=== PATIENT | female | born 1970 | race Caucasian/White ===

== ENCOUNTER 2019-02-07 02:24 | Outpatient (CLI) | payer MEDICAID, SELFPAY ==
--- NOTE | 2019-02-07 10:51 | DI.MRI_ITS ---
SYMPTOM/DIAGNOSIS: CONTINUED LT KNEE PAIN, FOLLOWING WORK INJURY LT KNEE INTERNAL DERANGEMENT MRI LEFT KNEE: Routine noncontrast examination was performed. There is no evidence of a meniscal tear The anterior cruciate, posterior cruciate, medial and lateral collateral ligaments are all intact as are the extensor mechanism, medial and lateral retinaculum and popliteus tendon. There is mild marrow edema seen in the medial aspect of the medial tibial plateau. No evidence of an occult fracture or avascular necrosis is seen. There is a small amount of fluid in the joint space. There is a tiny popliteal cyst. No soft tissue mass is appreciated. The articular cartilage is intact. IMPRESSION: 1. No evidence of a meniscal or ligament tear. 2. Small apparent bone bruise in the medial tibial plateau.
== END 2019-02-07 02:44 ==
PROVIDERS: PCP Family Medicine; Visit Provider Student in an Organized Health Care Education/Training Program
DX: M25.562 Pain in left knee (principal); M23.92 Unspecified internal derangement of left knee; S80.02XA Contusion of left knee, initial encounter
CPT/HCPCS: 73721

== ENCOUNTER 2019-05-30 10:19 | Outpatient (REF) | payer MEDICAID, SELFPAY ==
--- NOTE | 2019-05-30 08:30 | PAPFT_PTH ---
PATIENT: Christian Gordon LOC: [facility] U#:[id number] AGE/SX: 48/F ROOM: RE05/30/[address]: Reed Clark MD : 1970 BED: DIS: 05/30/2019 SPEC #: [id number] RECD: 05/30/19 13:01 STATUS: TIMOTHY RECherri #: [id number] DARIUS: 05/30/19 08:[address]: Reed Clark DEPT: [facility] Cytology RECD BY: Negar Fitch ENTERED: 05/30/19 13:01 SP TYPE: PAPFT OTHR DR: Nico Conley MD Tissues: 1 - CX/ENDOCX FOR PAP SMEARS Procedures: PAP THIN PREP/UVM Screening HPV DNA PROBE Comments: [id number]
== END 2019-05-30 10:39 ==
LOC: LBN 10:19
PROVIDERS: PCP Family Medicine; Visit Provider Obstetrics & Gynecology
DX: Z12.4 Encounter for screening for malignant neoplasm of cervix (principal)
CPT/HCPCS: 88142; 87624

== ENCOUNTER 2019-07-04 01:55 | Outpatient (CLI) | payer MEDICAID, SELFPAY ==
[2019-07-04 13:27] LABS: Hemoglobin A1C 5.2 % (3.8-5.6)
--- NOTE | 2019-07-04 13:34 | DI.MAMMO_ITS ---
EXAM: MG MAMMO DIAGNOSTIC RT AND US BREAST RT LIMITED AND US BREAST LT LIMITED CLINICAL HISTORY: RT BREAST LUMP AT NIPPLE, N63.10, LT BREAST LUMP AT 12 O'CLOCK, N63.20 TECHNIQUE: Ultrasound performed using standard protocol. FINDINGS: Mammogram and bilateral breast ultrasound are interpreted in conjunction. This is a baseline mammogr am and the patient has a question of palpable abnormalities in the retroareolar portion of the right breast and in the 12 o'clock position of the left breast. The breasts are heterogeneously dense. No dominant mass or clumped microcalcification seen. Vague nodular radiodensities noted in the 12 o'cl ock region of the left breast and retroareolar portion of the right breast without discrete mammograp hic mass. Breast ultrasound shows small cysts corresponding to these areas bilaterally, measuring ab out 5 millimeters in diameter in the left breast and about 7 millimeters in greatest diameter in the right breast. Echogenic dense breast tissue is also present in these regions. No ultrasonographicall y suspicious mass. IMPRESSION: No specific evidence of malignancy at this time. Routine screening examinations suggested at yearly i ntervals in this age group according the ACS/ACR guidelines. Category 1, breast density category C.
[2019-07-04 13:55] LABS: Cholesterol 209 mg/dL (<200); HDL Cholesterol 31 mg/dL (40-60); Triglyceride 602 mg/dL (<150)
[2019-07-04 14:25] LABS: LDL CHOLESTEROL 96 mg/dL (<100)
== END 2019-07-04 02:15 ==
PROVIDERS: PCP Family Medicine; Visit Provider Obstetrics & Gynecology
DX: N63.10 Unspecified lump in the right breast, unspecified quadrant (principal); N63.20 Unspecified lump in the left breast, unspecified quadrant; N60.11 Diffuse cystic mastopathy of right breast; N60.12 Diffuse cystic mastopathy of left breast; Z13.1 Encounter for screening for diabetes mellitus; Z13.220 Encounter for screening for lipoid disorders
CPT/HCPCS: 36415; 76642; 77062; 77066; 80061; 83721; 83036; G0279

== ENCOUNTER 2020-06-09 00:35 | Outpatient (CLI) | payer MEDICAID, SELFPAY ==
--- NOTE | 2020-06-09 06:45 | DI.US_ITS ---
EXAM: US PELVIS TRANSVAGINAL CLINICAL HISTORY: abnl uterine bleeding, menorrhagia, pelvic pain,r10.2,n93.9. TECHNIQUE: Transabdominal and transvaginal pelvic ultrasound was performed using standard protocol. COMPARISON: No exams were available for comparison FINDINGS: KIDNEYS: Kidneys are symmetric in size. No evidence of renal calculi. No evidence of hydronephrosis. No renal mass or cyst identified. UTERUS: Position: Anteverted. Size: 8.5 centimetres in length by 5.7 centimeter AP x 9 centimetres wide. Cm Endometrium: 4 millimeter cm. A trace amount of fluid noted in the endometrial canal. Myometrium: Multiple uterine fibroids. Largest of these is vnwdbm-rjfrg-mfcyb measures 4.6 x 4.9 x 4 .6 centimetres. OVARIES: The right ovary measures 1.4 x 0.7 x 0.8 centimetres. The left ovary measures 2.1 x 1.6 x 1.7 centim eters. No ominous ovarian nor extraovarian adnexal masses. No free fluid in the cul-de-sac. IMPRESSION: 1. Multiple uterine fibroids. The largest of these is right-sided at the fundus level measuring 46 x 49 x 46 millimeter. 2. Nonthickened endometrial stripe although there appears to be a sliver of fluid in the endometrial canal. 3. Appearance of the ovaries is age-appropriate. No abnormal adnexal masses evident. 4. Visualized kidneys appear unremarkable DATA REPOSITORY:
== END 2020-06-09 00:55 ==
PROVIDERS: PCP Family Medicine; Visit Provider Nurse Practitioner Women's Health
DX: D25.9 Leiomyoma of uterus, unspecified (principal)
CPT/HCPCS: 76830; 76856

== ENCOUNTER 2020-06-09 12:09 | Outpatient (REF) | payer MEDICAID, SELFPAY ==
--- NOTE | 2020-06-09 09:20 | ENDOMET_PTH ---
PATIENT: Christian Gordon LOC: [facility] U#:[id number] AGE/SX: 49/F ROOM: RE06/09/[address]: Nhung Whittington NP : 1970 BED: DIS: 06/09/2020 SPEC #: [id number] RECD: 06/09/20 12:36 STATUS: TIMOTHY REQ #: [id number] DARIUS: 06/09/20 09:[address]: Nhung Whittington NP DEPT: Surgical Specimen RECD BY: Negar Fitch ENTERED: 06/09/20 12:37 SP TYPE: Endomet OTHR DR: Bossman Bundy MD Tissues: 1 - ENDOMETRIUM BX/CURRETTE Procedures: GROSS AND MICRO LEVEL 4 Comments: [id number]
== END 2020-06-09 12:29 ==
LOC: LBN 12:09
PROVIDERS: PCP Family Medicine; Visit Provider Nurse Practitioner Women's Health
DX: N93.8 Other specified abnormal uterine and vaginal bleeding (principal); N85.01 Benign endometrial hyperplasia
CPT/HCPCS: 88305

== ENCOUNTER 2020-06-18 04:51 | Outpatient (CLI) | payer MEDICAID, SELFPAY ==
[2020-06-18 13:29] LABS: Abs Immature Grans 0.02 10^3/uL (0.0-0.06); Absolute Basophil Count 0.06 10^3/uL (0.0-0.2); Absolute Eosinophil Count 0.26 10^3/uL (0.0-0.7); Absolute Lymphocyte Count 2.84 10^3/uL (1.2-3.4); Absolute Monocyte Count 0.45 10^3/uL (0.1-0.8); Absolute Neutrophil Count 3.95 10^3/uL (1.2-6.7); Basophils % 0.8; Eosinophils % 3.4; HCT 41.9 % (36.0-46.0); HGB 13.8 g/dL (11.2-15.7); Immature Grans % 0.3; Lymphocytes % 37.5; MCH 30.1 pg (27.0-33.0); MCHC 32.9 % (32.0-36.0); MCV 91.3 fL (80-95); MPV 9.1 fL (8.0-11.0); Monocytes % 5.9; Neutrophils % 52.1; Nucleated RBC 0 %; Platelet Count 262 10^3/uL (130-400); RBC 4.59 10^6/uL (3.93-5.22); RDW 12.7 % (11.7-14.6); RDW-SD 42.8 fL; WBC 7.58 10^3/uL (4.4-10.8)
[2020-06-18 14:04] LABS: HCG Qual (Serum) Negative
[2020-06-20 19:06] LABS: COVID-19 RT-PCR Result NEGATIVE (Negative)
== END 2020-06-18 05:11 ==
PROVIDERS: PCP Family Medicine; Visit Provider Obstetrics & Gynecology
DX: D25.9 Leiomyoma of uterus, unspecified (principal); Z11.59 Encounter for screening for other viral diseases; Z01.818 Encounter for other preprocedural examination; Z01.812 Encounter for preprocedural laboratory examination
CPT/HCPCS: 36415; 86850; 86900; 86901; U0003; 84703; 85025

== ENCOUNTER 2020-06-23 11:25 | Inpatient (IN) | payer MEDICAID, SELFPAY ==
[2020-06-23] VITALS (17 sets, daily range): BP systolic 107–165; BP diastolic 72–92; PULSE 70–88; RESP 12–23; TEMP 36.4–37; O2SAT 96–100
[2020-06-23] MEDS: Lactated Ringers 1,000 ML 125 ML IV ×3 (12:20→21:00)
[2020-06-23] MEDS: ceFAZolin 2 GM/50 ML BAG IVPB (16:15)
[2020-06-23] MEDS: Bupivacaine 0.5% Pres-Free 30 ML VIAL (17:03)
--- NOTE | 2020-06-23 18:21 | UTER_PTH ---
PATIENT: Christian Gordon LOC: U#:[id number] AGE/SX: 49/F ROOM: RE06/23/[address]: Minerva Eisenberg DO : 1970 BED: A DIS: 06/24/2020 SPEC #: [id number] RECD: 06/24/20 12:47 STATUS: SOUHugo REQ #: [id number] DARIUS: 06/23/20 18:[address]: Minerva Eisenberg DEPT: Surgical Specimen RECD BY: Negar Fitch ENTERED: 06/24/20 12:48 SP TYPE: UTER OTHR DR: Bossman Bundy MD Tissues: 1 - UTERUS W OR W/O OVARIES(NOT TUMOR/PROLAPSE) Procedures: GROSS AND MICRO LEVEL 5 Comments: [id number]
--- NOTE | 2020-06-23 19:14 | ROE_ITS ---
Date of service: 06/23/20 Time of Service: 19:15 Operative Note Operative Note DATE OF PROCEDURE: 06/23/20 PRE-OP DIAGNOSIS: Symptomatic uterine fibroids POST-OP DIAGNOSIS: same PROCEDURE: Laparoscopically assisted vaginal hysterectomy with bilateral salpingectomy and bladder cystoscopy SURGEON: Minerva Eisenberg ASSISTING SURGEON: Suha Madrigal ANESTHESIA: GETA ESTIMATED BLOOD LOSS: 150 PATHOLOGY: other (Uterus, cervix, bilateral fallopian tubes) COMPLICATIONS: None Patient was transported to: PACU Patient's condition: stable Indications: Symptomatic uterine fibroids and dysmenorrhea Findings: 14-week size globular uterus with multiple intramural uterine fibroids. Normal-appearing ovaries. Evidence of previous tubal ligation. Normal anatomy of the bladder, and ureters. Procedure Description: Patient is a 49-year-old female who is been under the care of her nurse practitioner. She has been having ongoing heavy menstrual bleeding along with painful periods which has been nonresponsive to medical therapy. In the past she has had an intrauterine device which did not control her bleeding she was placed empirically on Provera for control of bleeding. She has had preoperative evaluation with ultrasound confirming multiple uterine fibroids. She had endometrial biopsy and Pap smear which were both normal. Patient herself requested definitive therapy due to the significant severe pain. Risk benefits and alternatives the procedure were explained the patient including risk of anesthesia, injury to surrounding organs, infection, bleeding, need for open laparotomy, thromboembolic events. Patient also was offered alternatives to procedure which included a repeat of an IUD, pain medication, cyclic or continuous oral contraceptives all of which she declined. Stick the operating suite with an IV running where she is placed in dorsal supine position and endotracheal intubation performed for the administration of general anesthesia anesthesia with ease. She is then placed in the modified dorsolithotomy position in [facility] and prepped and draped in the usual sterile fashion. Exam under anesthesia revealed a bulky globular uterus that was approximately 12 to 14 weeks size. This sat low in the pelvis and filled the bulk of the bony structure of the pelvis. It however, was mobile without evidence of adnexal masses. At this point weighted speculum was placed in the posterior vaginal vault and a single-tooth tenaculum used to grasp the anterior lip of the cervix. A i[employer] uterine manipulator was placed within for uterine elevation. Weighted speculum was removed and Natarajan catheter also inserted. Attention was then turned to the abdomen where infraumbilical area was infiltrated with half percent Marcaine Marcaine and a 1 cm incision was made. Initial attempt at placement of a varies needle was unsuccessful. The fascia was then identified tented up and entered sharply. A bladeless 1012 sleeve and trocar were directly inserted into the abdomen and CO2 gas used to insufflate to a maximum pressure of 15 mmHg. The abdomen was inspected. There is noted to be a significant amount of bowel gas within small bowel and large bowel, and the remainder of the abdomen and pelvis were atraumatic. A second an d third right and left lower quadrant trocar site were placed under direct visualization after instillation of half percent Marcaine with. This allowed for instrumentation and uterine elevation. Attention was first turned to the remnant of the left fallopian tube. Tube and ovary were initially wrapped low within the pelvis and elevated out. The fallopian tube was cautery transected and ligated. The left round ligament identified cautery transected and ligated allowing access to the left broad ligament. Utero-ovarian ligament was identified cautery transected and ligated and the anterior lip of the broad ligament was identified tented up and the bladder flap was created. Similar procedure was carried out on the right side with elevation of the uterus allowing visualization of the ovary and fallopian tube. Fallopian tube was elevated cautery transected and ligated this allowed access to the right round ligament right round ligament was cautery transected and ligated and the right utero-ovarian ligament were transected and ligated. The remainder of the bladder flap was created with meticulous sharp dissection. At this point all pedicles were inspected and found to be hemostatic. Attention was now turned to the vaginal vault. Pneumoperitoneum had been discontinued a weighted speculum was placed into the posterior vaginal vault and [place] uterine manipulator was removed. Pk clamps were used to grasp the anterior and posterior lips of the cervix and a circumferential incision was made at the cervical vaginal interface. The posterior cul-de-sac was entered sharply and the longbilled weighted speculum placed within. The right and left uterosacral cardinal complex were grasped transected and suture ligated. Attention was then turned to the anterior cul-de-sac which was meticulously sharp dissected and the remainder of the cul-de-sac entered. Retractor placed within and with in a very simple systematic meticulous fashion both the right and left uterine pedicles were clamped transected and ligated once they were freed the uterus was delivered through the vaginal vault. There is an area at the right uterine pedicle that was nonhemostatic static it was suture-ligated with 2 simple interrupted sutures and found to be hemostatic. The anterior peritoneum was then identified as was the posterior peritoneum and incorporated into the vaginal cuff. The vaginal cuff was closed using 0 Vicryl suture in a running locked fashion and tied in the midline. The uterosacral cardinal complex area was incorporated into the vaginal apices bilaterally allowing for good pelvic support. With completion of the closure of the vaginal cuff the vaginal portion was discontinued. The patient received 5 mL of methylene blue in preparation for cystoscopy. At this point attention was turned returned again to the abdomen pneumoperitoneum recreated and the vaginal cuff and pedicles found to be hemostatic. At this point the laparoscopic portion of the procedure was terminated fascial incision the umbilicus was closed using 0 Vicryl suture skin edge reapproximated with 4-0 Monocryl and Steri-Strips placed. Cystoscopy was performed with instillation of normal saline a 30 degree scope. The bladder was completely atraumatic and both ureters peristalsing and spouting clear yellow to blue-tinged urine. Completed the procedure. The patient was returned to dorsal supine position and awoke from anesthesia with ease. Natarajan catheter was in place draining blue urine Estimated blood loss 150 mL Complications: None apparent Pathology: Uterus, cervix, bilateral fallopian tubes for examination
[2020-06-23] MEDS: fentaNYL 100 MCG/2 ML VIAL IVP ×2 (19:55→20:05)
[2020-06-23] MEDS: LORazepam 1 MG TAB PO (20:59)
[2020-06-23] MEDS: Docusate Sodium 100 MG CAP PO (20:59)
[2020-06-23] MEDS: Acetaminophen 500 MG TAB PO (20:59)
[2020-06-23] MEDS: Normal Saline Flush 10 ML SYR IV ×2 (21:57→23:14)
[2020-06-23] MEDS: Ketorolac 30 MG/ML VIAL 15 MG IVP (23:13)
[2020-06-24 00:30] VITALS: BP 138/72; PULSE 85; RESP 18; TEMP 37.5; O2SAT 97
[2020-06-24 01:30] VITALS: BP 140/74; PULSE 80; RESP 18; TEMP 37.6; O2SAT 98
[2020-06-24 02:30] VITALS: BP 149/81; PULSE 72; RESP 18; TEMP 37.9; O2SAT 99
[2020-06-24] MEDS: oxyCODONE 5 mg/Acetaminophen 325 mg TAB PO ×3 (02:33→12:04)
[2020-06-24] MEDS: Normal Saline Flush 10 ML SYR IV ×2 (02:34→05:07)
[2020-06-24 03:30] VITALS: BP 133/74; PULSE 71; RESP 18; TEMP 37.7; O2SAT 96
[2020-06-24] MEDS: Ketorolac 30 MG/ML VIAL 15 MG IVP (05:06)
[2020-06-24] MEDS: Lactated Ringers 1,000 ML 125 ML IV (05:08)
[2020-06-24 07:12] VITALS: BP 127/79; PULSE 101; RESP 18; TEMP 37.4; O2SAT 97
--- NOTE | 2020-06-24 07:37 | PGE_ITS ---
Date of Service Date of service: 06/24/20 Time of Service: 07:37 Assessment and Plan Assessment and plan (1) Status post laparoscopic assisted vaginal hysterectomy: Status: Acute Assessment and plan: Status post laparoscopically assisted vaginal hysterectomy with bilateral salpingectomy. Doing well. Natarajan catheter is out. She will ambulate, use incentive spirometer, regular diet today. If she is doing well she will be discharged home later this afternoon. Prescriptions for Motrin, Linwood, Colace to the pharmacy Subjective Subjective Patient reports: feels better, pain is less, tolerating a regular diet and flatus Interval history since last seen: Patient seen and examined this morning. She had a very rough night with pain however pain is better controlled this morning. Natarajan catheter is out she has been up and voided. She did not sleep well last night is tired overall though feeling significantly better. Exam Const General: cooperative, healthy appearing, comfortable and no acute distress Nutritional Appearance: average body habitus Orientation: alert and oriented x3 Eyes General: appearance normal, both eyes and all related structures Resp Effort & Inspection: normal respiratory effort Auscultation: no rales, no rhonchi and no wheezes Cardio Rate: regular rate Rhythm: regular rhythm Heart Sounds: S1 normal and S2 normal GI Inspection: normal to inspection and incision Palpation: soft, not firm and no guarding Skin General skin exam: no rashes or lesions noted Neuro General: patient alert, patient awake and patient oriented x3 Cognition: normal cognition Extrem General: normal to inspection, no clubbing, cyanosis or edema and no calf tenderness Psych Appearance: grossly normal Mental Status: mental status grossly normal Speech and Movement: speech and movement normal Mood: congruent mood Affect: normal affect Attitude: cooperative Thought Process: normal Thought Content: normal Insight: insight good Judgment: judgment good Objective Last Vital Signs Temp 99.3 F 06/24/20 07:12 Pulse 101 H 06/24/20 07:12 Resp 18 06/24/20 07:12 BP 127/79 06/24/20 07:12 Pulse Ox 97 06/24/20 07:12
[2020-06-24] MEDS: LORazepam 1 MG TAB PO (07:48)
[2020-06-24] MEDS: Omeprazole 20 MG CAPCR PO (07:48)
[2020-06-24] MEDS: Docusate Sodium 100 MG CAP PO (07:48)
--- NOTE | 2020-06-24 07:50 | DSE_ITS ---
Date of service: 06/24/20 Time of Service: 07:50 DS: Diagnosis Discharge Diagnosis (1) Status post laparoscopic assisted vaginal hysterectomy: Status: Acute Discharge Plan Disposition Patient Disposition: HOME Condition: Good Discharge Details Reason For Visit: [facility] Admit Date/Time: 06/23/20 11:25 Admit Provider: Minerva Eisenberg Attending Provider: Minerva Eisenberg Primary Care Provider: Bossman Bundy [facility] Course Hospital Course: Patient underwent laparoscopically assisted vaginal hysterectomy with bilateral salpingectomy on 06/23/2020 for significantly enlarged fibroid uterus. She had uncomplicated postoperative course and was discharged home postoperative day #1 ambulating, tolerating regular diet and oral pain medication with stable vital signs. To be followed up in the office approximately 2 weeks time. Home Meds and New Rx's Prescriptions: New ibuprofen [IBU] 800 mg tablet 800 mg PO Q8H PRNQty: 30 RF: 0 hydrocodone-acetaminophen [[place]] 5-325 mg tablet 1 tab PO Q6H PRNQty: 14 RF: 0 docusate sodium [Colace] 100 mg capsule 100 mg PO BID Qty: 30 RF: 0 Continued omeprazole 20 mg capsule,delayed release(DR/EC) 20 mg PO DAILY Qty: 90 RF: 4 lorazepam 1 mg tablet 1 mg PO BID RF: 0 Discontinued ibuprofen 600 mg tablet 600 mg PO TID Qty: 21 RF: 0 progesterone micronized [Prometrium] 100 mg capsule 100 mg PO QAM 21 Days Qty: 21 RF: 0 oxycodone-acetaminophen [Percocet] 5-325 mg tablet 1 tab PO Q6H MDD 6 tabs PRN (Reason: pain) Qty: 14 RF: 0 Discharge Instructions Additional Instructions: Pelvic rest for 6 weeks Stand Alone Forms: DSU Post Gynecology Surgery Activity:: Activity as Tolerated Equipment/Supplies:: No Equipment Needed Diet:: As Tolerated Discharge Orders Discharge Orders: Discharge Order (Routine); Ordered 06/24/20 Ordered By: Minerva Eisenberg DS: Summary Status at Discharge Functional status at discharge: independent ambulation Overall status at discharge: patient is progressing back to baseline Mental Status: mental status grossly normal Speech and Movement: speech and movement normal Mood: congruent mood Affect: normal affect Exam Narrative Exam Narrative: See physical exam from progress note dated 06/24/2020 Psych Mental Status: mental status grossly normal Speech and Movement: speech and movement normal Mood: congruent mood Affect: normal affect DS: Data Vitals/I&O Vitals and I&O: Vital Signs Temperature 99.3 F 06/24/20 07:12 Temperature Source Temporal Artery Scan 06/24/20 07:12 Pulse 101 H 06/24/20 07:12 Pulse Rhythm Regular 06/24/20 05:00 Respiratory Rate 18 06/24/20 07:12 Respiratory Effort Non-Labored 06/24/20 05:00 Respiratory Depth Normal 06/24/20 05:00 Respiratory Pattern Normal 06/24/20 05:00 Blood Pressure 127/79 06/24/20 07:12 Pulse Oximetry 97 06/24/20 07:12 Respiratory End-tidal CO2 37 06/23/20 19:19 Oxygen Delivery Method Room Air 06/24/20 07:12 Oxygen Flow Rate 0 06/24/20 07:12 Pain Level 0 06/24/20 07:12 Comment 06/24/20 02:30 Intake & Output 06/23/20 06/23/20 06/24/20 11:59 23:59 11:59 Intake Total 2505.417 / 2505.417 1600 / 1600 Output Total 500 / 500 2950 / 2950 Balance 2005.417 / 2005.417 -1350 / -1350 Weight 152 lb 12.485 oz 150 lb 9.211 oz Intake: IV 1935.417 / 1457.966 7321 / 1000 Oral 570 / 570 600 / 600 Output: Urine 350 / 350 2950 / 2950 Estimated Blood Loss 150 / 150 Other: Urine Color Green Pale Indigo Yellow Green Urine Appearance Clear Clear Urine Odor None Comment Greenish blue urine color. Natarajan patent and draining. 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 Uterine leiomyoma Surgical History H/O cardiac radiofrequency ablation 2014 for svt Ligation of fallopian tube Open Carpal Tunnel release RIGHT Recurrent major depression in partial remission Cardiac for SVT 2010 [facility] Status post laparoscopic assisted vaginal hysterectomy Family History Other Personal history of malignant neoplasm Social History Smoking/Tobacco Use Status: Current every day Tobacco Type: cigarettes Tobacco: How many years used: 20 Smoking risk assessment performed?: Yes Alcohol Intake: never Drug use: Never Substance use type: does not use Do you feel safe at home: Yes Do you feel safe in your relationship?: Yes History History 4 Para 3 Hx # Term Pregnancies Multiple births Hx # Pregnancies Ectopic pregnancies AB induced Hx Number of Living Children AB spontaneous
[2020-06-24 11:26] VITALS: BP 109/70; PULSE 95; RESP 16; TEMP 37.6; O2SAT 97
[2020-06-24] MEDS: Ibuprofen 600 MG TAB PO (12:20)
--- NOTE | 2020-06-24 14:18 | PDOC.CMPRO ---
- If Service Date Differs Date of service: 06/24/20 Time of Service: 14:18 Care Management Progress Note S/O:P Alayna was sitting up in a chair when ELISSA met with her. She informed ELISSA she was feeling well and that she would be discharging soon. She denied the need for any services at home. A: Alayna is a 49 year old woman admitted on 06/22/20 for a LAVH P: Alayna will be discharged home with no new services. She will follow up with her surgeon and discharge plan of care and transport with family.
== END 2020-06-24 12:59 | disposition home or self-care (01) | DRG 743 ==
LOC: PDS 11:26 → MS 20:04
PROVIDERS: Admitting Provider Obstetrics & Gynecology; PCP Family Medicine; Visit Provider Obstetrics & Gynecology
PROC: 0UT9FZZ Resection of Uterus, Via Natural or Artificial Opening With Percutaneous Endoscopic Assistance (ICD-10-PCS; CPT 58552; principal; 2020-06-23 13:30)
DX: D25.1 Intramural leiomyoma of uterus (principal); D25.2 Subserosal leiomyoma of uterus; N94.6 Dysmenorrhea, unspecified; F17.210 Nicotine dependence, cigarettes, uncomplicated; K21.9 Gastro-esophageal reflux disease without esophagitis; F32.9 Major depressive disorder, single episode, unspecified; F41.9 Anxiety disorder, unspecified
CPT/HCPCS: 58552; 90686; 99232; 99238; 88307; J0131; J0690; J1100; J1200; J1885; J2001; J2405; J3010; J3490

== ENCOUNTER 2020-07-28 14:56 | Outpatient (REF) | payer MEDICAID, SELFPAY ==
[2020-07-28 13:33] LABS: Abs Immature Grans 0.15 10^3/uL (0.0-0.06); Absolute Basophil Count 0.06 10^3/uL (0.0-0.2); Absolute Eosinophil Count 0.18 10^3/uL (0.0-0.7); Absolute Monocyte Count 0.51 10^3/uL (0.1-0.8); Absolute Neutrophil Count 7.87 10^3/uL (1.2-6.7); Basophils % 0.5; Eosinophils % 1.6; HCT 42.5 % (36.0-46.0); HGB 14.2 g/dL (11.2-15.7); Immature Grans % 1.4; Lymphocytes % 20.8; MCH 29.6 pg (27.0-33.0); MCHC 33.4 % (32.0-36.0); MCV 88.7 fL (80-95); MPV 9.7 fL (8.0-11.0); Monocytes % 4.6; Neutrophils % 71.1; Nucleated RBC 0 %; Platelet Count 304 10^3/uL (130-400); RBC 4.79 10^6/uL (3.93-5.22); RDW 12.1 % (11.7-14.6); RDW-SD 39.8 fL; WBC 11.07 10^3/uL (4.4-10.8)
[2020-07-28 13:53] LABS: ALT 24 U/L (14-59); AST 21 U/L (15-37); Alkaline Phosphatase 71 U/L (46-116); Anion Gap 7.7 mmol/L (3-11); BUN 9 mg/dL (7-18); Bilirubin, Total 0.5 mg/dL (0.2-1.0); CO2 26.3 mmol/L (21.0-32.0); CREATININE 0.63 mg/dL (0.55-1.02); Calcium 8.6 mg/dL (8.5-10.1); Chloride 102 mmol/L (98-107); Glucose 107 mg/dL (74-106); Potassium 4.4 mmol/L (3.5-5.1); Sodium 136 mmol/L (136-145); Total Protein 6.9 g/dL (6.4-8.2)
== END 2020-07-28 15:16 ==
LOC: NCHCN 14:56
PROVIDERS: PCP Family Medicine; Visit Provider Physician Assistant
DX: R10.9 Unspecified abdominal pain (principal)
CPT/HCPCS: 80053; 85025

== ENCOUNTER 2020-07-29 16:59 | Outpatient (REF) | payer MEDICAID, SELFPAY ==
[2020-07-30 16:22] LABS: COVID-19 RT-PCR UVMMC Result Negative (Negative)
== END 2020-07-29 17:19 ==
LOC: LBN 16:59
PROVIDERS: PCP Family Medicine; Visit Provider Surgery
DX: Z11.52 Encounter for screening for COVID-19 (principal); Z01.818 Encounter for other preprocedural examination
CPT/HCPCS: U0003

== ENCOUNTER 2020-07-29 18:34 | Outpatient (CLI) | payer MEDICAID, SELFPAY ==
--- NOTE | 2020-07-29 08:00 | DI.CT_ITS ---
EXAM: CT ABDOMEN PELVIS W CLINICAL HISTORY: abd/back pain x 1 week, rectal pain. S/p hysterec TECHNIQUE: Imaging Protocol: Axial computed tomography images with coronal and sagittal reformatted images were created and reviewed CONTRAST MATERIAL: Intravenous: Omnipaque 350 Contrast volume:100 mL Oral: Yes Rectal: Yes COMPARISON: CT RENAL COLIC WO CONTRAST from 07/28/2015 FINDINGS: ABDOMEN: Lung Bases: Scarring or atelectasis in the right lower lobe. Liver: Normal density. No measurable mass. Portal, Superior Mesenteric, and Splenic Veins: Unremarkable. Gallbladder and Biliary Tract: No radiodense calculus or dilation. Pancreas: Normal density, no abnormal calcifications or inflammatory process. Spleen: Normal. Adrenals: No masses seen. Kidneys: Normal size, contour and axis. No radiodense stones or obstructive uropathy. No masses seen. Abdominal Aorta: Abdominal portion non-dilated. Atherosclerosis. Bowel: No obstruction or bowel wall thickening. No evidence of appendicitis. Peritoneal Cavity: No ascites, collection or mesenteric inflammatory response. No free air. Lymph Nodes: Within normal limits. Bones: Within normal limits for the patient's age. Soft Tissues: Small fat containing umbilical hernia. No evidence of a pelvic or soft tissue abscess. PELVIS: Bladder: Symmetric distention, no gross wall thickening. Reproductive Organs: Status post hysterectomy. Lymph Nodes: Within normal limits. Bones: Within normal limits for the patient's age. IMPRESSION: 1. Status post hysterectomy. 2. No evidence of a pelvic or soft tissue abscess or mass. 3. No acute abdominal or pelvic process. RADIATION DOSE DELIVERED: 780.22mGy.cm Total DLP DATA REPOSITORY: All CT scans at this facility are submitted to the National Radiology Data Registry (NRDR) Dose Index Registry (DIR) with the [employer] (ACR). RADIATION OPTIMIZATION: All CT scans at this facility use at least one of these dose optimization te chniques: automated exposure control; mA and/or kV adjustment per patient size (includes targeted exa ms where dose is matched to clinical indication); or iterative reconstruction.
[2020-07-29] MEDS: Omnipaque 350 MG/ML 100 ML BTL IJ (12:48)
[2020-07-29] MEDS: Normal Saline - Diluent 50 ML VIAL IV (12:49)
[2020-07-29] MEDS: Omnipaque 350 MG/ML 50 ML BTL IJ ×2 (12:50→12:54)
[2020-07-29] MEDS: Breeza Beverage 473 ML BTL PO (12:51)
== END 2020-07-29 18:54 ==
PROVIDERS: PCP Family Medicine; Visit Provider Physician Assistant
DX: R10.9 Unspecified abdominal pain (principal); K62.89 Other specified diseases of anus and rectum; Z90.710 Acquired absence of both cervix and uterus; M54.9 Dorsalgia, unspecified
CPT/HCPCS: 74177; J3490; Q9967

== ENCOUNTER 2020-07-30 06:13 | Day surgery (SDC) | payer MEDICAID, SELFPAY ==
[2020-07-30 06:35] VITALS: BP 102/72; PULSE 91; RESP 16; TEMP 36.6; O2SAT 96
[2020-07-30] MEDS: Lactated Ringers 1,000 ML 80 ML IV (07:00)
--- NOTE | 2020-07-30 07:27 | W.PM.HP.N ---
Date of service: 07/30/20 Time of Service: 07:28 Assessment and Plan Assessment and plan (1) Rectal pain: Status: Acute Assessment and plan: I have advised the patient I would recommend an exam under anesthesia and probable drainage of a perianal abscess History of Present Illness History of Present Illness Chief Complaint: Perianal pain Narrative: 49-year-old woman with a 10-day history of perianal pain increasing in nature. Initially started with what she stated was a lump hanging out which she pushed back in. She initially had some blood but none recently. 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 Uterine leiomyoma Surgical History H/O cardiac radiofrequency ablation 2014 for svt History of tonsillectomy Ligation of fallopian tube Open Carpal Tunnel release RIGHT Recurrent major depression in partial remission Cardiac for SVT 2010 [facility] Status post laparoscopic assisted vaginal hysterectomy Family History Other Personal history of malignant neoplasm Social History Smoking/Tobacco Use Status: Current every day Tobacco Type: cigarettes Tobacco: How many years used: 20 Smoking risk assessment performed?: Yes Alcohol Intake: current Alcohol Intake frequency: holidays/special occasions only Drug use: Never Substance use type: does not use Do you feel safe at home: Yes Do you feel safe in your relationship?: Yes History History 4 Para 3 Hx # Term Pregnancies Multiple births Hx # Pregnancies Ectopic pregnancies AB induced Hx Number of Living Children AB spontaneous Meds Home Medications and Allergies Home Medications Medication Instructions Recorded Confirmed Type omeprazole 20 mg capsule,delayed 20 mg PO DAILY #90 tab-cap 06/21/20 07/30/20 Rx release lorazepam 1 mg PO BID 06/23/20 07/30/20 History docusate sodium [Colace] 100 mg PO BID #30 cap 06/24/20 07/30/20 Rx ibuprofen [IBU] 800 mg PO Q8H PRN #30 tab 06/24/20 07/29/20 Rx hydrocortisone 2.5 % topical cream 1 applic GA BID-QID PRN #30 g 07/29/20 07/29/20 Rx with perineal applicator Allergies Allergy/AdvReac Type Severity Reaction Status Date / Time codeine AdvReac Mild pt .states Verified 07/29/20 15:19 she is ok with this medication as long as she eat Exam Resp Auscultation: clear to auscultation bilaterally Cardio Rate: regular rate Rhythm: regular rhythm Heart Sounds: S1 normal and S2 normal GI Other: Tender on digital exam mainly anteriorly with a small tender mass just inside the anal verge anteriorly Results Last Vital Signs Temp 97.9 F 07/30/20 06:35 Pulse 91 H 07/30/20 06:35 Resp 16 07/30/20 06:35 BP 102/72 07/30/20 06:35 Pulse Ox 96 07/30/20 06:35 COVID-19 Screening Have you, or household traveled for leisure in last 14 days?: No Had IN PERSON contact w/suspected or confirmed C-19 person: No
[2020-07-30] MEDS: AMPICILLIN/SULBACTAM 3 GM in Normal Saline 100 ML IVPB (07:50)
[2020-07-30] MEDS: Gelatin SPONGE 12-7 MM PKT 1 EACH TP (08:20)
[2020-07-30] MEDS: EPINEPHrine 1 MG/ML AMP pres-free (08:20)
[2020-07-30] MEDS: Bupivacaine 0.25% Pres-Free 30 ML VIAL (08:20)
--- NOTE | 2020-07-30 08:38 | W.PM.OP ---
Date of service: 07/30/20 Time of Service: 08:39 Operative Note Operative Note DATE OF PROCEDURE: 07/30/20 PRE-OP DIAGNOSIS: Rectal pain POST-OP DIAGNOSIS: same PROCEDURE: Exam under anesthesia SURGEON: Nikolai Jacinto ANESTHESIA: regional ESTIMATED BLOOD LOSS: 1 PATHOLOGY: none sent Findings: Mixed hemorrhoids with no evidence of acute inflammation. No abscess no fissure and normal rectovaginal septum Procedure Description: With the patient in the jackknife position the perianal region was prepped and draped in a sterile fashion. External inspection of the anal skin revealed no abnormalities. A digital rectal exam was performed. The intersphincteric groove was well preserved there were no masses palpable. The rectovaginal septum was entirely normal. No inflammatory change was noted. An anoscope was inserted. There were noted to be mixed hemorrhoids both external and internal. No thrombosis was noted no inflammatory changes noted in the mucosa. The internal hemorrhoids showed normal mucosa over them with no evidence of prior incarceration. The anal canal was visualized no fissure was noted. At this point the anoderm was injected with quarter percent Marcaine with epinephrine. 2 pieces of Gelfoam saturated with quarter percent Marcaine with epinephrine were placed in the anal canal and 4 x 4 were placed over the anus as well as an ABD pad. Patient was brought to recovery room in stable condition
--- NOTE | 2020-07-30 08:47 | W.PM.DSUDISC ---
Discharge Plan Disposition Patient Disposition: HOME Condition: Good Discharge Details Attending Provider: Nikolai Jacinto Primary Care Provider: Bossman Bundy Home Meds and New Rx's Prescriptions: No Action hydrocortisone [Anusol-HC] 2.5 % cream with perineal applicator 1 applic [place] BID-QID PRN (Reason: hemorrhoids) Qty: 30 RF: 0 omeprazole 20 mg capsule,delayed release(DR/EC) 20 mg PO DAILY Qty: 90 RF: 4 lorazepam 1 mg tablet 1 mg PO BID RF: 0 ibuprofen [IBU] 800 mg tablet 800 mg PO Q8H PRNQty: 30 RF: 0 docusate sodium [Colace] 100 mg capsule 100 mg PO BID Qty: 30 RF: 0 Discharge Instructions Additional Instructions: Starting tomorrow morning sit in the tub of warm water. After the bandages are saturated remove the tape and gauze. Soak for about [address] a dry pad over the area. Do the soaks at least 3 times a day and after a bowel movement. Take Metamucil or Citrucel 1 tablespoon in a large glass of water in the evening. Use Tylenol extra strength as needed for discomfort. Referrals: Nikolai Jacinto MD [MD CONSULTING PHYSICIAN] - ( surgery office in a week to 10 days) Activity:: Activity as Tolerated Activity:: Activity as Tolerated Diet:: As Tolerated Discharge Orders Discharge Orders: Discharge Order (Routine); Ordered 07/30/20 Ordered By: Nikolai Jacinto Discharge Data Discharge Physician: Nikolai Jacinto DS: Diagnosis Discharge Diagnosis (1) Rectal pain: Status: Acute
[2020-07-30 09:07] VITALS: BP 103/69; PULSE 73; RESP 16; TEMP 36.5; O2SAT 94
== END 2020-07-30 09:30 | disposition home or self-care (01) ==
PROVIDERS: PCP Family Medicine; Visit Provider Surgery
PROC: (CPT 46040; principal; 2020-07-30 07:30)
DX: K62.89 Other specified diseases of anus and rectum (principal); K64.8 Other hemorrhoids
CPT/HCPCS: 45990; 99234; J0171; J0295; J2250; J2405; J2704

== ENCOUNTER 2020-12-24 06:07 | Day surgery (SDC) | payer MEDICAID, SELFPAY ==
[2020-12-24 06:10] VITALS: BP 116/78; PULSE 80; RESP 18; TEMP 36.6; O2SAT 99
[2020-12-24] MEDS: Lactated Ringers 1,000 ML 80 ML IV (06:36)
--- NOTE | 2020-12-24 07:05 | W.ANESPRE ---
General Info Date of Service Date Performed: 12/24/20 Height: 5 ft 7 in Weight: 67.4 kg Body Mass Index (BMI): 23.3 Surgical Procedure: Operation Date: 12/24/20 07:35 Proposed Procedures Side Surgeon edinson Shah, DO Meds Allergies and Home Medications Allergies Allergy/AdvReac Type Severity Reaction Status Date / Time codeine AdvReac Mild pt .states Verified 12/24/20 06:19 she is ok with this medication as long as she eat Home Medication Medication Instructions Recorded ibuprofen [IBU] 800 mg PO Q8H PRN #30 tab 06/24/20 omeprazole 20 mg capsule,delayed 20 mg PO DAILY #90 tab-cap 09/23/20 release bisacodyl 5 mg tablet,delayed 5 mg PO ONCE #4 tab 12/09/20 release polyethylene glycol 3350 17 238 g PO ONCE #238 g 12/09/20 gram/dose oral powder lorazepam 1 mg tablet 1 mg PO BID #60 tab 12/10/20 Current Visit Medications: Current Medications Generic Name Dose Route Start Last Admin Trade Name Freq PRN Reason Stop Dose Admin Ringer's Solution 1,000 mls @ 80 mls/hr 12/24/20 06:00 12/24/20 06:36 IV 01/22/21 23:59 80 mls/hr INFUSION KRAIG Administration IV Miscellaneous Supplies 1 each 12/24/20 06:00 Iv Access IV 01/22/21 23:59 DIRECTED KRAIG Sodium Chloride 0 ml 12/24/20 06:00 Normal Saline Flush 10 Ml Syr IV 01/22/21 23:59 PRN PRN Sodium Chloride 0 ml 12/24/20 06:00 Normal Saline 10 Ml Vial IJ 01/22/21 23:59 DIRECTED PRN Sterile Water 0 ml 12/24/20 06:00 Water,Injection,Sterile 10 Ml Vial IJ 01/22/21 23:59 DIRECTED PRN PFSH Active Problems Active Problems: Problem Status Onset Code Achilles tendinitis of left lower extremity M76.62 Rectal sphincter spasm K59.4 Toxoplasmosis B58.9 Smoker F17.200 Headache R51 Disorder characterized by back pain M53.9 Depressive disorder F32.9 Carpal tunnel syndrome G56.00 Anxiety F41.9 Breast lump on left side at 12 o'clock position N63.20 Breast lump on right side at 3 o'clock position N63.10 Screening for malignant neoplasm of cervix Z12.4 Intractable right heel pain M79.671 Skin lesion L98.9 URI (upper respiratory infection) J06.9 Acute hemorrhoid K64.9 Status post laparoscopic assisted vaginal hysterectomy Z90.710 Medical History Medical History Acute hemorrhoid Dysmenorrhea ongoing since 2003 Encounter for IUD removal Lymphadenopathy right inguinal Past history anemia Past history hyperlipidemia SVT 2010 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 Uterine leiomyoma Surgical History Surgical History H/O cardiac radiofrequency ablation 2015 for svt History of tonsillectomy Ligation of fallopian tube Open Carpal Tunnel release RIGHT Recurrent major depression in partial remission Cardiac for SVT 2010 [facility] Status post laparoscopic assisted vaginal hysterectomy Tobacco Smoking/Tobacco Use Status: Current every day Tobacco Type: cigarettes Smoking cigarettes per day: 10 Tobacco: How many years used: 20 Alcohol Alcohol Intake: current Alcohol intake frequency: holidays/special occasions only Substance Use Substance use: Never Substance use type: does not use Prental History History 4 Para 3 Hx # Term Pregnancies Multiple births Hx # Pregnancies Ectopic pregnancies AB induced Hx Number of Living Children AB spontaneous Vital Signs and Lab Results Vital Signs Most Recent Vital Signs in EMR: Most Recent Vital Signs Temp Pulse Resp BP Pulse Ox 36.6 C 80 18 116/78 99 12/24/20 06:10 12/24/20 06:10 12/24/20 06:10 12/24/20 06:10 12/24/20 06:10 Lab Results Blood Type / Crossmatch: No Data to Display Complete Blood Count: No Data to Display Complete Metabolic Panel: No Data to Display Liver Function Panel: No Data to Display Coagulation Panel: No Data to Display Cardiac Panel: No Data to Display Arterial Blood Gas: No Data to Display Venous Blood Gas: No Data to Display Pancreas Panel: No Data to Display Thyroid Panel: No Data to Display Infectious Disease: No Data to Display Blood Cultures: No Data to Display Toxicology Panel: No Data to Display Panel: No Data to Display Anesthesia Assessment and Plan Anesthesia History Personal History: No History of Anesthesia Complications Family History: No Family History of Anesthesia Complications Exercise Tolerance Exercise Tolerance: Metabolic Equivalents>4 Pertinent Negatives Pertinent Negatives: No Major Cardiovascular Symptoms or Complaints, No Major Pulmonary Symptoms or Complaints and No History of CVA/TIA Cardiac & Pulmonary Exam Cardiac Exam: Normal S1/S2 Heart Sounds Pulmonary Exam: Clear Bilateral Breath Sounds Airway Exam Known Difficult Airway: No Mallampati Class: 2 Mouth Opening: Normal (> 3cm) Thyromental Distance: Greater than 3 cm Neck Range of Motion: Full ROM Neck Circumference: Normal Teeth Condition: Normal Dentition ASA Classification ASA Score: ASA 2 Emergency Case?: No NPO Status NPO Status: NPO Clears >2 hours, Solids >8 hours Status Status: Not Per Patient and History of Hysterectomy Anesthesia Plan Resuscitation Status: Full Code Anesthesia Technique: General Anesthesia Airway Planned: Natural Airway Monitors Used: Standard Monitors
[2020-12-24 07:09] VITALS: BMI 23.3
--- NOTE | 2020-12-24 08:20 | BOWEL_PTH ---
PATIENT: Christian Gordon LOC: [facility] U#:[id number] AGE/SX: 50/F ROOM: RE12/24/[address]: Thais Shah : 1970 BED: DIS: 12/24/2020 SPEC #: [id number] RECD: 12/24/20 12:48 STATUS: TIMOTHY REQ #: [id number] DARIUS: 12/24/20 08:[address]: Thais Shah DEPT: Surgical Specimen RECD BY: Negar Fitch ENTERED: 12/24/20 12:48 SP TYPE: Bowel OTHR DR: Manuel Lombardo, PROJECTION PRINTER Tissues: 1 - BIOPSY BOWEL Procedures: GROSS AND MICRO LEVEL 4 Comments: [id number]
--- NOTE | 2020-12-24 08:35 | PDOC.DSDIS_ITS ---
Discharge Plan Disposition Patient Disposition: HOME Discharge Details Reason For Visit: colon scope Attending Provider: Thais Shah Primary Care Provider: Manuel Lombardo Home Meds and New Rx's Prescriptions: Continued omeprazole 20 mg capsule,delayed release(DR/EC) 20 mg PO DAILY Qty: 90 RF: 4 lorazepam 1 mg tablet 1 mg PO BID Qty: 60 RF: 0 ibuprofen [IBU] 800 mg tablet 800 mg PO Q8H PRNQty: 30 RF: 0 Discontinued bisacodyl [Dulcolax (bisacodyl)] 5 mg tablet,delayed release (DR/EC) 5 mg PO ONCE Qty: 4 RF: 0 polyethylene glycol 3350 17 gram/dose powder 238 g PO ONCE Qty: 238 RF: 0 Discharge Instructions Additional Instructions: DSU Colonoscopy Post- Op Instructions Instructions for Everyone who is given Anesthesia: For your safety, please do the following for the next twenty-four (24) hours: *Do Not operate a motor vehicle (car, truck, motorcycle, etc.) *Do Not drink alcoholic beverages or use any recreational drugs for the first 24 hours or while taking pain medications. The medications in your body may have a reaction that can be dangerous. *Do Not make any important decisions or sign any important papers. Findings: polyp in rectum Follow up:repeat in 3 yrs time 1. No lifting over 20 pounds or strenuous activity for the first 24 hours after your procedure. After 24 hours there are no restrictions on your activity but you may feel fatigued for a few days. 2. After you arrive home you may have a light meal and return to your normal diet as you can tolerate it without feeling sick to your stomach. 3. You may have a bloated, gaseous feeling in your belly (abdomen) after a colonoscopy. Passing gas and belching will help. Walking or lying down on your left side with your knees flexed may relieve the discomfort. Call the office at [phone] (Office) or [phone] (Hospital) right away if you notice any of the following: a.Vomiting of blood or ?coffee ground stools?. b.Rectal bleeding 1Tbsp, blood clots or continuous bleeding. c.Severe belly (abdominal) pain. d.A hard distended belly (abdomen) and an inability to pass gas. 4. Please don?t expect to have a normal BM (bowel movement) for 2-3 days after your procedure. 5. If there are questions regarding the findings of your procedure, please contact your doctor 6. If you are unable to contact your doctor with a problem, contact the hospital at [phone]. 7. Continue all your regular medications unless directed otherwise. I understand the above instructions and have no questions. Signature of Patient or Adult Escort Name of Responsible Adult Escort Signature of Nurse Date/Time Activity:: see above Diet:: see above Discharge Orders Discharge Orders: Discharge Order (Routine); Ordered 12/24/20 Ordered By: Thais Shah DS: Diagnosis Discharge Diagnosis (1) Adenomatous colon polyp: Status: Acute
--- NOTE | 2020-12-24 08:37 | W.COLOREPORT ---
Date of service: 12/24/20 Time of Service: 08:38 Colonoscopy Report Date of procedure: 12/24/20 Pre-op diagnosis general: screen Post-op diagnosis procedure note: other (1 cm A. polyp in rectum ) Surgeon: Thais Shah Anesthesia Type: General:No Airway Pathology: other Complications: None Disposition: PACU Prep: Miralax/Dulcolax Retraction Time: 12 times Procedure Description: After informed consent was obtained the patient was taken to the procedure room and placed in a left decubitous position. Monitors were applied and a time out was done. The patients name, date of , procedure, allergies to medications and metal in their body was reviewed. The patient was then sedated. Once sedated and comfortable a rectal exam was done. External exam was normal. Internal exam revealed a normal sphincter tone and no palpable masses. The scope was then introduced and retrofelexed. no internal hemorrhoids were identified. The colon is extremely tortuous and redundant. After multiple passes and multiple repositioning, I am unable to get past the hepatic flexure. She has no diverticula. The mucosa is pink and healthy. The prep was good. The scope was then slowly retracted over 15 minutes back into the rectum. Polyps were removed x1 in the rectum. It is a 1 cm polyp. It is removed with a hot snare. All specimen is retrieved and no bleeding is noted. The scope was removed and the patient was woken up and taken back to Same day surgery in stable condition. The patient tolerated the procedure well and there were no immediate complications. Follow up: The patient should follow up in 3 years unless they develop changes in bowel habits or other new gastrointestinal complaints.
[2020-12-24 08:38] VITALS: BP 87/57; PULSE 83; RESP 16; TEMP 36.8; O2SAT 96
--- NOTE | 2020-12-24 08:40 | W.ANESPOSTOP ---
Postoperative Evaluation Date, Time and Location Date Performed: 12/24/20 Time Performed: 08:40 Patient Location: Day Surgery Unit Vital Signs Most Recent Imported Vital Signs: Most Recent Vital Signs Temp Pulse Resp BP Pulse Ox 36.6 C 80 18 116/78 99 12/24/20 06:10 12/24/20 06:10 12/24/20 06:10 12/24/20 06:10 12/24/20 06:10 Most Recent Manually Entered Vital Signs: Adult Blood Pressure: 97/57 Heart Rate: 80 Respirations: 12 Oxygen Saturation (%): 97 Temperature (C): 36.4 C Pain Score (0-10 Scale): 0 Assessment Mental Status: Awake (Alert & Oriented to Patient Baseline) Airway and Respiratory Function: Patent airway with normal (patient baseline) respiratory exam Cardiovascular Function: Hemodynamically Stable Hydration Status: Adequately Hydrated Nausea & Vomiting: No Nausea or Vomiting Pain: Pt. Denies Any Pain Peripheral Nerve Block: Patient did not receive a nerve block
[2020-12-24 08:41] VITALS: BP 97/57; PULSE 80; RESP 12; TEMPC 36.4; O2SAT 97
[2020-12-24 09:08] VITALS: BP 96/61; PULSE 76; RESP 16; TEMP 36.6; O2SAT 96
== END 2020-12-24 09:38 | disposition home or self-care (01) ==
PROVIDERS: PCP Nurse Practitioner Family; Visit Provider Surgery
PROC: 0DJD8ZZ Inspection of Lower Intestinal Tract, Via Natural or Artificial Opening Endoscopic (ICD-10-PCS; CPT 45378; principal; 2020-12-24 07:30)
DX: Z12.11 Encounter for screening for malignant neoplasm of colon (principal); D12.8 Benign neoplasm of rectum
CPT/HCPCS: 45385; 88305; J2001; J2704

== ENCOUNTER 2021-07-28 01:05 | Outpatient (CLI) | payer MEDICAID, SELFPAY ==
--- NOTE | 2021-07-28 08:30 | DI.MAMMO_ITS ---
Exam(s) MAMMO SCREENING EXAM: MAMMO SCREENING CLINICAL HISTORY: screening,z12.39. TECHNIQUE: Bilateral full field digital CC and MLO mammographic images were obtained with 3D tomosyn thesis and utilizing computer aided detection (CAD). COMPARISON: Prior mammograms were reviewed, the most recent being baseline mammogram of June. Ultrasound from that time also. FINDINGS: Fibroglandular tissue is again noted be dense, this somewhat decreasing the sensitivity mammogram for finding hidden underlying lesions There are no new obvious spiculated masses nor malignant appearing microcalcification groups. There is no significant architectural distortion nor skin thickening-retraction. IMPRESSION: Dense bilateral fibroglandular tissue. No obvious radiographic evidence of malignancy nor significan t change compared to 2019 baseline study. BI-RADS Category 1 - Negative Breast Density - Category C - Heterogeneously dense Breast density Category C or D implies that the patient has dense breast tissue. Dense breast tissue can make it harder to find cancer on a mammogram. Dense breast tissue is also associated with an incr eased risk of breast cancer. This information about the result of the mammogram report was provided to the patient to raise their awareness. Use this report when you speak with the patient about their risks for breast cancer, which includes their family history. At that time, you may recommend additional screening tests (Ultrasoun d or MRI) as these tests may add significant information. A negative radiographic report should not delay biopsy if a dominant or clinically suspicious mass is present. Up to ten percent of cancers are not identified on mammography. A negative report may reinforce clinical impression. Adenosis and dense breasts may obscure an underlying neoplasm. False positive reports average 6 to 10%. Patient will receive a letter notifying them of these results.
== END 2021-07-28 01:25 ==
PROVIDERS: PCP Nurse Practitioner Family; Visit Provider Nurse Practitioner Family
DX: Z12.31 Encounter for screening mammogram for malignant neoplasm of breast (principal); R92.8 Other abnormal and inconclusive findings on diagnostic imaging of breast
CPT/HCPCS: 77063; 77067

== ENCOUNTER 2021-08-10 03:10 | Outpatient (CLI) | payer MEDICAID, SELFPAY ==
[2021-08-10 11:40] LABS: Source Nasal/Nares
[2021-08-10 16:26] LABS: COVID-19 PCR Positive (Negative)
== END 2021-08-10 03:11 | disposition home or self-care (01) ==
LOC: LBO 03:10
PROVIDERS: Surgery; PCP Nurse Practitioner Family; Visit Provider Physical Therapy Assistant
DX: Z20.822 Contact with and (suspected) exposure to COVID-19 (principal)
CPT/HCPCS: 87635

== ENCOUNTER 2021-10-17 23:47 | Outpatient (CLI) | payer MEDICAID, SELFPAY ==
--- NOTE | 2021-10-17 16:30 | DI.RAD_ITS ---
Exam(s) XR KNEE RT 4V AP,LAT,MARICARMEN,PAT EXAM: XR KNEE RT 4V AP,LAT,MARICARMEN,PAT CLINICAL HISTORY: knee pain, collided with dog, patella pain, swelling M25.561 PAIN RT KNEE. TECHNIQUE: 2D digital imaging was performed of the right knee. Four views obtained. AP, lateral, Me rchant and PA tunnel views were obtained. COMPARISON: No exams were available for comparison FINDINGS: BONES: No acute fracture is present. No bony destructive lesion is seen. JOINTS: The knee is normally aligned. There is a moderate suprapatellar joint effusion. SOFT TISSUE: Normal. IMPRESSION: 1. Moderate suprapatellar joint effusion. 2. No acute fracture or dislocation. DATA REPOSITORY: RADIATION DOSE DELIVERED:
--- NOTE | 2021-10-17 18:08 | DI.VRAD_ITS ---
PROCEDURE INFORMATION: Exam: XR Left Knee Exam date and time: 10/17/2021 5:43 PM Age: 51 years old Clinical indication: Other: Knee pain, patella pain, collided with dog, swelling TECHNIQUE: Imaging protocol: XR Left knee. Views: 4 or more views. COMPARISON: MR KNEE^ROUTINE KNEE 02/07/2019 11:10 AM FINDINGS: Bones/joints: Moderate suprapatellar effusion. No acute fracture or dislocation. Soft tissues: Soft tissue swelling. IMPRESSION: Moderate nonspecific suprapatellar effusion without acute bony findings. Dictated and Authenticated by: Ray Pfeiffer MD. Ordering:REVA Gordon MD
== END 2021-10-18 00:07 ==
PROVIDERS: PCP Nurse Practitioner Family; Visit Provider Physician Assistant
DX: M25.561 Pain in right knee (principal); M25.461 Effusion, right knee
CPT/HCPCS: 73564

== ENCOUNTER 2021-10-19 02:26 | Outpatient (CLI) | payer MEDICAID, SELFPAY ==
[2021-10-19 12:49] LABS: Source Nasal/Nares
[2021-10-19 16:31] LABS: COVID-19 PCR Negative (Negative)
== END 2021-10-19 02:27 | disposition home or self-care (01) ==
LOC: LBO 02:26
PROVIDERS: PCP Nurse Practitioner Family; Visit Provider Surgery
DX: Z20.822 Contact with and (suspected) exposure to COVID-19 (principal); Z01.818 Encounter for other preprocedural examination
CPT/HCPCS: 87635

== ENCOUNTER 2021-10-21 07:18 | Day surgery (SDC) | payer MEDICAID, SELFPAY ==
--- NOTE | 2021-10-20 22:25 | W.PM.OP ---
Operative Note Operative Note PRE-OP DIAGNOSIS: Uncontrolled GERD Refer to Anesthesia Record
--- NOTE | 2021-10-21 | DI.CT_ITS ---
Exam(s) CT CHEST/ABD W EXAM: CT CHEST/ABD W CLINICAL HISTORY: hiatal hernia TECHNIQUE: Imaging Protocol: Axial computed tomography images with coronal and sagittal reformatted images were created and reviewed CONTRAST MATERIAL: Intravenous: Omnipaque 350 Contrast volume:100 mL Oral: Yes COMPARISON: CT CT ABDOMEN PELVIS W from 07/29/2020 FINDINGS: CHEST: Tracheobronchial tree: Patent where visualized. Pulmonary parenchyma: No consolidation or dominant measurable mass. Linear scarring is seen in the ri ght lower lobe. There are few small noncalcified pulmonary nodules. The largest measures 3 mm. Visualized thyroid gland: Unremarkable. Mediastinum and Sandie: No dominant adenopathy or fluid collection. The esophagus is unremarkable. No hiatal hernia is present. Pleura: No effusion or pneumothorax. Heart: The heart is not dilated. No coronary artery calcifications are seen. No pericardial effusion. Pulmonary arteries: The peripheral pulmonary arteries are not adequately opacified for evaluation of pulmonary embolic disease. No central pulmonary embolus is seen. Aorta: Thoracic aorta non-dilated. Atherosclerosis. Lymph nodes: Within normal limits. Soft tissues: Unremarkable. Bones:Within normal limits for the patient's age. ABDOMEN: Liver: Normal density. No measurable mass. The caudal aspect of the liver was not included on this ex amination. Portal, Superior Mesenteric, and Splenic Veins: Unremarkable. Gallbladder and Biliary Tract: No radiodense calculus or dilation. Pancreas: Normal density, no abnormal calcifications or inflammatory process. Spleen: Normal. Adrenals: No masses seen. Kidneys: Normal size, contour and axis. No radiodense stones or obstructive uropathy. No masses seen. Abdominal Aorta: Abdominal portion non-dilated. Atherosclerosis. Bowel: No obstruction or bowel wall thickening. Peritoneal Cavity: No ascites, collection or mesenteric inflammatory response. No free air. Lymph Nodes: Within normal limits. Bones: Within normal limits for the patient's age. Soft Tissues: Unremarkable. IMPRESSION: 1. No acute abdominal or thoracic process. 2. No evidence of a hiatal hernia. 3. Pulmonary nodules. The largest is 3 mm. For low risk patients, optional CT scan of the chest in 12 months may be obtained. For high risk patients (history of smoking or other risk factors), option al CT scan in 12 months may be obtained for further evaluation. (Ashly et al, 2017). RADIATION DOSE DELIVERED: 725.1mGy.cm Total DLP DATA REPOSITORY: All CT scans at this facility are submitted to the National Radiology Data Registry (NRDR) Dose Index Registry (DIR) with the [employer] (A[employer]). RADIATION OPTIMIZATION: All CT scans at this facility use at least one of these dose optimization te chniques: automated exposure control; mA and/or kV adjustment per patient size (includes targeted exa ms where dose is matched to clinical indication); or iterative reconstruction.
[2021-10-21 07:30] VITALS: BP 113/83; PULSE 90; RESP 18; TEMP 36.8; O2SAT 97
[2021-10-21] MEDS: Lactated Ringers 1,000 ML 80 ML IV (07:51)
--- NOTE | 2021-10-21 08:30 | W.ANESPRE ---
General Info Date of Service Date Performed: 10/21/21 Height: 5 ft 7 in Weight: 69.2 kg Body Mass Index (BMI): 23.8 Surgical Procedure: Operation Date: 10/21/21 08:20 Proposed Procedure Side Surgeon p Gastroscopy Thais Shah, DO Meds Allergies and Home Medications Allergies Allergy/AdvReac Type Severity Reaction Status Date / Time codeine AdvReac Mild pt .states Verified 10/19/21 10:38 she is ok with this medication as long as she eat Home Medication Medication Instructions Recorded multivitamin 1 tab PO DAILY 07/29/21 omeprazole 20 mg capsule,delayed 20 mg PO DAILY #90 tab-cap 08/19/21 release lorazepam 1 mg tablet 1 mg PO BID #56 tab 10/03/21 Current Visit Medications: Current Medications Generic Name Dose Route Start Last Admin Trade Name Freq PRN Reason Stop Dose Admin Hyoscyamine Sulfate 0.125 mg 10/20/21 22:23 Hyoscyamine 0.125 Mg Sl/Oral/Chew SL DIRECTED PRN Ringer's Solution 1,000 mls @ 80 mls/hr 10/21/21 06:00 10/21/21 07:51 IV 11/19/21 23:59 80 mls/hr INFUSION KRAIG Administration IV Miscellaneous Supplies 1 each 10/21/21 06:00 Iv Access IV 11/19/21 23:59 DIRECTED KRAIG Sodium Chloride 0 ml 10/21/21 06:00 Normal Saline Flush 10 Ml Syr IV 11/19/21 23:59 PRN PRN Sodium Chloride 0 ml 10/21/21 06:00 Normal Saline 10 Ml Vial IJ 11/19/21 23:59 DIRECTED PRN Sterile Water 0 ml 10/21/21 06:00 Water,Injection,Sterile 10 Ml Vial IJ 11/19/21 23:59 DIRECTED PRN PFSH Active Problems Active Problems: Problem Status Onset Code Smoker F17.200 Disorder characterized by back pain M53.9 Depressive disorder F32.9 Carpal tunnel syndrome G56.00 Anxiety F41.9 Skin lesion L98.9 Medical History Medical History Adenomatous colon polyp Breast lump on left side at 12 o'clock position Breast lump on right side at 3 o'clock position COVID-19 08/2021 Dysmenorrhea ongoing since 2003 Encounter for IUD removal Lymphadenopathy right inguinal Past history anemia Past history hyperlipidemia Sessile colonic polyp SVT 2010 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 Surgical History Surgical History H/O cardiac radiofrequency ablation 2014 for svt History of colonoscopy with polypectomy (~12/24/20) tubulovillous, repeat 3 years, [place] History of tonsillectomy Ligation of fallopian tube Open Carpal Tunnel release RIGHT Recurrent major depression in partial remission Cardiac for SVT 2009 [facility] Status post laparoscopic assisted vaginal hysterectomy Tobacco Smoking/Tobacco Use Status: Current every day Tobacco Type: cigarettes Passive smoking exposure: Yes Second hand exposure: Yes Alcohol Alcohol Intake: current Alcohol intake frequency: a few times a week Alcohol type: beer Substance Use Substance use: Occasionally Substance use type: marijuana Details: tried it Prental History History 4 Para 3 Hx # Term Pregnancies Multiple births Hx # Pregnancies Ectopic pregnancies AB induced Hx Number of Living Children AB spontaneous Vital Signs and Lab Results Vital Signs Most Recent Vital Signs in EMR: Most Recent Vital Signs Temp Pulse Resp BP Pulse Ox 36.8 C 90 18 113/83 97 10/21/21 07:30 10/21/21 07:30 10/21/21 07:30 10/21/21 07:30 10/21/21 07:30 Lab Results Blood Type / Crossmatch: No Data to Display Complete Blood Count: No Data to Display Complete Metabolic Panel: No Data to Display Liver Function Panel: No Data to Display Coagulation Panel: No Data to Display Cardiac Panel: No Data to Display Arterial Blood Gas: No Data to Display Venous Blood Gas: No Data to Display Pancreas Panel: No Data to Display Thyroid Panel: No Data to Display Infectious Disease: Coronavirus (COVID-19)(PCR) Negative (Negative) 10/19/21 08:23 10/19/21 Coronavirus 2019 Source Nasal/Nares 10/19/21 08:23 10/19/21 Blood Cultures: No Data to Display Toxicology Panel: No Data to Display Panel: No Data to Display Anesthesia Assessment and Plan Anesthesia History Personal History: No History of Anesthesia Complications Family History: Other (Son was combative) Exercise Tolerance Exercise Tolerance: Metabolic Equivalents>4 Pertinent Negatives Pertinent Negatives: No Symptoms of GERD (Omeprazole helps), No Major Cardiovascular Symptoms or Complaints, No Major Pulmonary Symptoms or Complaints and No History of CVA/TIA (Tingling right hand) Cardiac & Pulmonary Exam Cardiac Exam: Normal S1/S2 Heart Sounds Pulmonary Exam: Clear Bilateral Breath Sounds Implantable Cardiac Device Does patient have a Pacemaker or an ICD?: No Airway Exam Known Difficult Airway: No Mallampati Class: 2 Mouth Opening: Normal (> 3cm) Thyromental Distance: Greater than 3 cm Neck Range of Motion: Full ROM Neck Circumference: Normal Teeth Condition: Normal Dentition and Other (Missing teeth left/right upper) ASA Classification ASA Score: ASA 2 Emergency Case?: No NPO Status NPO Status: NPO Clears >2 hours, Solids >8 hours Status Status: Not Per Patient Anesthesia Plan Resuscitation Status: Full Code Anesthesia Technique: General Anesthesia Airway Planned: Natural Airway Monitors Used: Standard Monitors
[2021-10-21 08:35] VITALS: BMI 23.8
--- NOTE | 2021-10-21 08:39 | HPE_ITS ---
Date of service: 10/21/21 Time of Service: 08:40 Assessment and Plan Assessment and plan (1) COVID-19: Assessment and plan: Informed consent is obtained for the procedural (explained in simple layman's terms that the pt and/or family could understand) explaining risks vs benefits and alternatives to the procedure and consequences if we do not do the procedure and need/rational for the procedure.Risks include but are not limited to: bleeding, infection, perforation of esophagus, stomach, colon, small intestines, bronchus or trachea, or PTX. This would necessitate emergency surgery to repair the damage w/ possible ostomy; and other associated complications w/ the required surgery. Also complications of anesthesia including aspiration, AZ/CVA/ (2) Smoker: Status: Chronic (3) Chronic GERD: Status: Acute History of Present Illness Narrative: 50 y/o female with history of GERD, depression and anxiety presents to discuss proceeding with EGD for further evaluation of abdominal bloating and inferior rib pressure.? She states this does not appear to be related to food or beverages. She states these sensations are constant. She denies having any heart burn symptoms since taking omeprazole. She denies any changes in bowel habits including bloody or black tarry stools,? diarrhea or constipation. She denies constitutional symptoms. Denies use of marijuana or any other recreational or illegal drugs. She denies chest pain, palpitations, dyspnea or dyspnea with exertion. 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 She denies prior history or family history of adverse reactions or complications with anesthesia. The patient denies any history of stroke, AZ, seizures, bleeding or clotting disorders. She denies having any implanted metal in her body. SHe c/o epigastric pain. She is on omeprazole. WHen she eats- she bloats. She doesn't get the pain w/ the PPI. She has been on this for 3 yrs. Since she has been on a PPI no H/I. she can't eat lg meals or gets stomach pain. Eats small meals throughout the day. NO pain or diff swallowing. no wt loss. No problems w/ anesthesia coffee- doesn't not. No caffeine smoke- 1PPD etoh- once a week THC- no no asa/nsaid's cause severe pain/problems. no MEJIA no mi/cva no DM kidney- no Review of Systems All systems reviewed & are unremarkable except as noted in HPI and below PFSH All Active Problems (Updated 10/21/21 @ 08:43 by Thais Shah DO) Chronic GERD (Acute) Smoker (Chronic) Disorder characterized by back pain (Chronic) fell from [place] as a child Depressive disorder (Chronic) Carpal tunnel syndrome (Chronic) Anxiety (Chronic) Skin lesion (Acute) Medical History Adenomatous colon polyp Breast lump on left side at 12 o'clock position Breast lump on right side at 3 o'clock position COVID-19 08/2021 Dysmenorrhea ongoing since 2004 Encounter for IUD removal Lymphadenopathy right inguinal Past history anemia Past history hyperlipidemia Sessile colonic polyp SVT 2009 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 Brother , 55 No problems noted. Son No problems noted. Son No problems noted. Son No problems noted. Other Personal history of malignant neoplasm Social History Smoking/Tobacco Use Status: Current every day Tobacco Type: cigarettes Tobacco: How many years used: 20 Quit status: considering quitting Second Hand Exposure: Yes Smoking risk assessment performed?: Yes Alcohol Intake: current Alcohol Intake frequency: a few times a week Alcohol type: beer Drug use: Occasionally Substance use type: marijuana Details: tried it Household members: family Housing: house Communication Needs: None Pets and animals: Yes Pets and animals: cat(s) and dog(s) Sexually active: Yes Do you think of yourself as: straight/heterosexual Current gender identity: female What is your relationship status?: How often do you talk on the phone with friends or family?: three or more times per week How often do you get together with friends or relatives?: three or more times per week How often do you attend holiness or spiritism services?: decline to answer Do you belong to any clubs or organized social groups?: yes Panel score (0-1 are the most socially isolated patients): 3 Duration: 15-30 minutes/day Frequency: 3-4 times per week Seatbelt use: always Helmet use: Yes Helmet use: sometimes Drive 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 w/intox 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: No Do you feel safe at home: Yes Do you feel safe in your relationship?: Yes History History 4 Para 3 Hx # Term Pregnancies Multiple births Hx # Pregnancies Ectopic pregnancies AB induced Hx Number of Living Children AB spontaneous Meds Allergies and Home Medications Allergies Allergy/AdvReac Type Severity Reaction Status Date / Time codeine AdvReac Mild pt .states Verified 10/19/21 10:38 she is ok with this medication as long as she eat Home Medications Medication Instructions Recorded Confirmed Type multivitamin 1 tab PO DAILY 07/29/21 10/21/21 History omeprazole 20 mg capsule,delayed 20 mg PO DAILY #90 tab-cap 08/19/21 10/21/21 Rx release lorazepam 1 mg tablet 1 mg PO BID #56 tab 10/03/21 10/21/21 Rx Exam Narrative Exam Narrative: PHYSICAL EXAM GENERAL APPEARANCE: Alert, healthy appearance, oriented, in no acute distress SKIN: No rashes.? No breakdown HYDRATION: Well hydrated HEAD, EYES, EARS, NECK, THROAT: Head is normocephalic, pupils equal, round, reactive to light and accommodation, ocular movement intact, sclera clear and no jaundice. ?Dentition intact. No sore throat.? No jaw pain. NECK: Supple, Trachea midline. No JVD. LUNGS: normal respiration/nl chest excursion. ?Clear to auscultation B/l no R/R/W ?HEART: Regular rate and rhythm, EXTREMITY: No edema or cyanosis? no leg pain, redness, swelling.? No IV infiltration ABDOMEN: non tender to palpation, no masses or distention, no hernias. Normal bowel sounds NEURO: no focal neuro deficits. ? Results Last Vital Signs Temp 36.8 C 10/21/21 07:30 Pulse 90 10/21/21 07:30 Resp 18 10/21/21 07:30 BP 113/83 10/21/21 07:30 Pulse Ox 97 10/21/21 07:30
--- NOTE | 2021-10-21 08:55 | W.PM.ENDDOP ---
Date of service: 10/21/21 Time of Service: 08:55 Endoscopy Report DATE OF PROCEDURE: 10/21/21 PRE-OP DIAGNOSIS: medication refractory GERD POST-OP DIAGNOSIS: other (hiatal hernia) SURGEON: Thais Shah ANESTHESIA TYPE: Local By Surgeon and General:No Airway ESTIMATED BLOOD LOSS: 1 PATHOLOGY: other COMPLICATIONS: None DISPOSITION: same day PROCEDURE DESCRIPTION: After informed consent was obtained the patient was take to the procedure room and placed in a supine position. Monitors were applied and a time out was done. The patients name, date of , procedure type, allergies to medications and metal in their body was reviewed. A bite block was placed and the patient was sedated. Once sedated and comfortable the gastroscope was advanced through the oropharynx which was grossly normal into the esophagus. The proximal and mid-esophagus were nl. She has no esophageal erosions, varices, diverticula or strictures. she does have a large type sliding hernia approximately 4 to 5 cm. The thoracic stomach junction to the abdominal stomach is at 40 cm and the GE junction was at 45 cm. Biopsies are taken of this. There is some mild irritation within the body of the thoracic stomach. The rest of the stomach is unremarkable without gastritis, ulceration. The duodenum appears normal without ulcers or duodenitis. Biopsies were taken. All specimens are retrieved and no bleeding is noted. Scope was advanced into the stomach and through the pylorus into the 3rd portion of the duodenum. The duodenum was noted to be nl Biopsies were done. The scope was retracted back into the stomach and biopsies were done to rule out H. pylori. The scope was retroflexed. The cardia and fundus were noted to be normal. There lg a hiatal hernia noted- sliding type. The scope was retracted back into the esophagus and biopsies were done of the GE junction to rule out Lua's. The Z line was regular. The scope was removed and the patient was woken up and taken back to [facility] in stable condition. Follow up: 2-3 wks
--- NOTE | 2021-10-21 09:12 | STOM_PTH ---
PATIENT: Christian Gordon LOC: [facility] U#:[id number] AGE/SX: 51/F ROOM: RE10/21/[address]: Thais Shah : 1970 BED: DIS: 10/21/2021 SPEC #: [id number] RECD: 10/21/21 12:39 STATUS: [facility] #: [id number] DARIUS: 10/21/21 09:[address]: Thais Shah DEPT: Surgical Specimen RECD BY: Negar Fitch ENTERED: 10/21/21 12:42 SP TYPE: STOMACH OTHR DR: Manuel Lombardo, MANAGER COLLECTION Tissues: 1 - BIOPSY BOWEL 2 - BIOPSY BOWEL 3 - STOMACH BIOPSY 4 - STOMACH BIOPSY 5 - STOMACH BIOPSY 6 - ESOPHAGUS BIOPSY Procedures: GROSS AND MICRO LEVEL 4 Comments: [id number]
[2021-10-21 09:39] VITALS: BP 105/90; PULSE 91; RESP 16; TEMP 36.7; O2SAT 97
--- NOTE | 2021-10-21 09:39 | W.ANESPOSTOP ---
Postoperative Evaluation Date, Time and Location Date Performed: 10/21/21 Time Performed: 09:39 Patient Location: Day Surgery Unit Vital Signs Most Recent Imported Vital Signs: Most Recent Vital Signs Temp Pulse Resp BP Pulse Ox 36.8 C 90 18 113/83 97 10/21/21 07:30 10/21/21 07:30 10/21/21 07:30 10/21/21 07:30 10/21/21 07:30 Pain Score Most Recent Pain Score: Most Recent Pain Score Pain Level 0 10/21/21 07:30 Assessment Mental Status: Awake (Alert & Oriented to Patient Baseline) Airway and Respiratory Function: Patent airway with normal (patient baseline) respiratory exam Cardiovascular Function: Hemodynamically Stable Hydration Status: Adequately Hydrated Nausea & Vomiting: No Nausea or Vomiting Pain: Pt. Denies Any Pain Peripheral Nerve Block: Patient did not receive a nerve block
[2021-10-21] MEDS: Normal Saline Flush 10 ML SYR IV (09:57)
[2021-10-21 10:09] VITALS: BP 113/87; PULSE 87; RESP 16; TEMP 36.8; O2SAT 97
[2021-10-21] MEDS: Omnipaque 350 MG/ML 100 ML BTL IJ (10:17)
[2021-10-21] MEDS: Omnipaque 350 MG/ML 50 ML BTL PO (10:32)
[2021-10-21] MEDS: Breeza Beverage 473 ML BTL PO (10:33)
--- NOTE | 2021-10-21 10:36 | PDOC.DSDIS_ITS ---
Discharge Plan Disposition Patient Disposition: HOME Condition: Good Discharge Details Reason For Visit: stomach scope Attending Provider: Thais Shah Primary Care Provider: Manuel Lombardo Home Meds and New Rx's Prescriptions: New omeprazole 20 mg capsule,delayed release(DR/EC) 20 mg PO BID Qty: 60 12RF Continued multivitamin Tablet 1 tab PO DAILY 0RF lorazepam 1 mg tablet 1 mg PO BID Qty: 56 0RF Discontinued omeprazole 20 mg capsule,delayed release(DR/EC) 20 mg PO DAILY Qty: 90 4RF Discharge Instructions Additional Instructions: Post EGD Instruction ? ?You had anesthesia for your EGD/stomach scope today.? For your safety, please do the following for the next twenty-four (24) hours: Do Not operate a motor vehicle (car, truck, motorcycle, etc.) Do Not drink alcoholic beverages or use any recreational drugs for the first 24 hours or while taking pain medications. The medications in your body may have a reaction that can be dangerous. Do Not make any important decisions or sign any important papers ? You have just had a gastroscopy (EGD) or upper GI tract examination. It is important for your smooth recovery that you carefully follow the recommendations below. Do not hesitate to call if any questions should arise about your anesthesia, condition, or care. -Symptoms you may experience during the next 24 hours: ?1. Mild abdominal pain or excessive gas or a bloated feeling which improves with rest, liquids, eating? slightly, and walking as tolerated. 2. Drowsiness and/or forgetfulness because of the medications you were given. ?3. Throat numbness for about 1 hour. 4. A sore throat which you can treat with throat lozenges or by gargling with salt water 4-5 times a day. 5. Redness at the site of your IV which you can treat with warm compresses. ? SPECIAL INSTRUCTIONS: 1. You may resume your previous diet in one hour. We recommend a light meal to start, then progress as tolerated. 2. Restart regular medications in one hour. 3. No aspirin or non-steroidal containing medication for three days. 4. No lifting over 20 pounds or strenuous activity for the first 24 hours after your procedure. After 24 hours there are no restrictions on your activity, but you may feel fatigued for a few days. ?Findings: hiatal hernia *Always sit up straight in a chair while eating.3? This ensures that your stomach is in the best alignment to receive food. By contrast, slouching (say,?on the sofa) not only places your stomach in a more horizontal position, it compresses the junction between the stomach and esophagus, promoting backflow.? * Eat smaller, more frequent meals.3??And, more importantly perhaps, do not skip meals. Doing so will only lead you to overeat. * Always eat at a table.?The thing about nibbling on the run or munching in front the TV is that you can end up?mindlessly putting food into your mouth?without even realizing it. Sitting a table with prepared portions helps avoid this. * Take smaller bites and chew longer.3??The rationale is simple: The more your food is pulverized before swallowing, the less the stomach has to do to digest it. This translates to less stomach acid and less acid reflux. * Sit upright for at least an hour after eating.?It is best to do so in a solid but comfortable chair. Also, avoid bending or lying down immediately after eating. * Avoid eating three hours before bedtime.3??This includes snacks. Sleeping with an emptied stomach means there will be far less chance of rzpsce-sd-inv-night reflux. * Relax.?While stress doesn't necessarily cause acid reflux, an increasing? body of evidence z ?has shown that stress can impact the way in which our body reacts to reflux symptoms. So, rather than?tying yourself in a knot, trying sitting calming and engaging in deep breathing exercises or meditation. Find someplace quiet where you can sit comfortably until the symptoms pass. * Loosen your belt and remove tight clothing.?Ultimately, anything that constricts the abdomen can trigger symptoms as you move about and jostle the contents of your stomach. Give yourself a break and avoid cinched waistlines or anything that places direct stress on the stomach. * Take a fiber supplement.?If you are suffering from chronic constipation, a daily?fiber supplement https://www.[place].Peap.co/yzqyzvqqbcdv-robdzlwh-48596 ?can help improve your regularity.5? A couple of tablespoons of mineral oil can also help ease hardened stools during acute bouts. * Elevate the head of your bed 4 to 8 inches. This is especially useful for people who are overweight or have the?symptoms of GERD https://www.[place] [address].Peap.co/qqhoueog-sh-pllo-0114928 . Aligning the stomach in an ascending (rather than flat) position significantly lowers the risk of gastric backflow related to hiatal hernias. * Avoid heavy lifting.?If you have been diagnosed with a large hernia, lifting heavy objects will only make things?worse. If you have to move something heavy, use a cart or trolley, or, better yet, ask someone else to do it. You may also need to alter your workout routine if you use heavy weights or engage in exercises that place excessive stress on the stomach muscles (including weighted squats or crunches). Finally,?stop smoking.6??While smoking doesn't cause acid reflux, it can affect? gastric motility h ?and the way in which food moves through the esophagus. Smoking can also dull the responsiveness your LES and promote?dysphagia 7 ?(swallowing difficult). These effects are long-lasting and may become permanent in heavy smokers, turning even a small hernia into a source of ongoing grief. ? -Continue to follow lifestyle modifications: No alcohol, tobacco products, Aspirin or NSAID's (ibuprofen, Motrin, Naprosyn, aleve, etc).? Try to limit/avoid:? soda pop/any carbonated beverages, caffeine (including tea & chocolate), and acidic foods, (tomatoes, citrus, onions, peppermints) spicy or fried/fatty foods. Do not lie down for 30 minutes after eating, and do not eat 2 hours prior to bedtime. Avoid wearing tight fitting clothing/ belts. Follow up: Dr. Shah 11/03 11:30am Call the office at [phone] (Office) or [phone] (Hospital), or go to the ER right away if you notice any of the followin. Vomiting blood and /or ?coffee ground? material. ?2. Worsening of abdominal pain or cramping. ?3. Trouble with breathing, cough, and/or fever (temperature above 101.5 F). 4. Increasing pain with swallowing. ?5. Chest pain. 6. Any new symptoms. 7. Worsening of the redness at the IV site ? Activity:: see above Diet:: see above Discharge Orders Discharge Orders: Discharge Order (Routine); Ordered 10/20/21 Ordered By: Thais Shah DS: Diagnosis Discharge Diagnosis (1) COVID-19: (2) Smoker: Status: Chronic (3) Chronic GERD: Status: Acute
--- NOTE | 2021-10-21 10:55 | PDOC.DSDIS_ITS ---
Discharge Plan Disposition Patient Disposition: HOME Condition: Good Discharge Details Reason For Visit: stomach scope Attending Provider: Thais Shah Primary Care Provider: Manuel Lombardo Home Meds and New Rx's Prescriptions: New omeprazole 20 mg capsule,delayed release(DR/EC) 20 mg PO BID Qty: 60 12RF Continued multivitamin Tablet 1 tab PO DAILY 0RF lorazepam 1 mg tablet 1 mg PO BID Qty: 56 0RF Discontinued omeprazole 20 mg capsule,delayed release(DR/EC) 20 mg PO DAILY Qty: 90 4RF Discharge Instructions Additional Instructions: Post EGD Instruction ? ?You had anesthesia for your EGD/stomach scope today.? For your safety, please do the following for the next twenty-four (24) hours: Do Not operate a motor vehicle (car, truck, motorcycle, etc.) Do Not drink alcoholic beverages or use any recreational drugs for the first 24 hours or while taking pain medications. The medications in your body may have a reaction that can be dangerous. Do Not make any important decisions or sign any important papers ? You have just had a gastroscopy (EGD) or upper GI tract examination. It is important for your smooth recovery that you carefully follow the recommendations below. Do not hesitate to call if any questions should arise about your anesthesia, condition, or care. -Symptoms you may experience during the next 24 hours: ?1. Mild abdominal pain or excessive gas or a bloated feeling which improves with rest, liquids, eating? slightly, and walking as tolerated. 2. Drowsiness and/or forgetfulness because of the medications you were given. ?3. Throat numbness for about 1 hour. 4. A sore throat which you can treat with throat lozenges or by gargling with salt water 4-5 times a day. 5. Redness at the site of your IV which you can treat with warm compresses. ? SPECIAL INSTRUCTIONS: 1. You may resume your previous diet in one hour. We recommend a light meal to start, then progress as tolerated. 2. Restart regular medications in one hour. 3. No aspirin or non-steroidal containing medication for three days. 4. No lifting over 20 pounds or strenuous activity for the first 24 hours after your procedure. After 24 hours there are no restrictions on your activity, but you may feel fatigued for a few days. ?Findings: hiatal hernia *Always sit up straight in a chair while eating.3? This ensures that your stomach is in the best alignment to receive food. By contrast, slouching (say,?on the sofa) not only places your stomach in a more horizontal position, it compresses the junction between the stomach and esophagus, promoting backflow.? * Eat smaller, more frequent meals.3??And, more importantly perhaps, do not skip meals. Doing so will only lead you to overeat. * Always eat at a table.?The thing about nibbling on the run or munching in front the TV is that you can end up?mindlessly putting food into your mouth?without even realizing it. Sitting a table with prepared portions helps avoid this. * Take smaller bites and chew longer.3??The rationale is simple: The more your food is pulverized before swallowing, the less the stomach has to do to digest it. This translates to less stomach acid and less acid reflux. * Sit upright for at least an hour after eating.?It is best to do so in a solid but comfortable chair. Also, avoid bending or lying down immediately after eating. * Avoid eating three hours before bedtime.3??This includes snacks. Sleeping with an emptied stomach means there will be far less chance of caohdb-dr-bbc-night reflux. * Relax.?While stress doesn't necessarily cause acid reflux, an increasing? body of evidence z ?has shown that stress can impact the way in which our body reacts to reflux symptoms. So, rather than?tying yourself in a knot, trying sitting calming and engaging in deep breathing exercises or meditation. Find someplace quiet where you can sit comfortably until the symptoms pass. * Loosen your belt and remove tight clothing.?Ultimately, anything that constricts the abdomen can trigger symptoms as you move about and jostle the contents of your stomach. Give yourself a break and avoid cinched waistlines or anything that places direct stress on the stomach. * Take a fiber supplement.?If you are suffering from chronic constipation, a daily?fiber supplement https://www.[employer]/kjsvredxwuvj-urugwcvk-30696 ?can help improve your regularity.5? A couple of tablespoons of mineral oil can also help ease hardened stools during acute bouts. * Elevate the head of your bed 4 to 8 inches. This is especially useful for people who are overweight or have the?symptoms of GERD https://www.[employer]/jbxknalk-oe-gtxp-2466750 . Aligning the stomach in an ascending (rather than flat) position significantly lowers the risk of gastric backflow related to hiatal hernias. * Avoid heavy lifting.?If you have been diagnosed with a large hernia, lifting heavy objects will only make things?worse. If you have to move something heavy, use a cart or trolley, or, better yet, ask someone else to do it. You may also need to alter your workout routine if you use heavy weights or engage in exercises that place excessive stress on the stomach muscles (including weighted squats or crunches). Finally,?stop smoking.6??While smoking doesn't cause acid reflux, it can affect? gastric motility h ?and the way in which food moves through the esophagus. Smoking can also dull the responsiveness your LES and promote?dysphagia 7 ?(swallowing difficult). These effects are long-lasting and may become permanent in heavy smokers, turning even a small hernia into a source of ongoing grief. ? -Continue to follow lifestyle modifications: No alcohol, tobacco products, Aspirin or NSAID's (ibuprofen, Motrin, Naprosyn, aleve, etc).? Try to limit/avoid:? soda pop/any carbonated beverages, caffeine (including tea & chocolate), and acidic foods, (tomatoes, citrus, onions, peppermints) spicy or fried/fatty foods. Do not lie down for 30 minutes after eating, and do not eat 2 hours prior to bedtime. Avoid wearing tight fitting clothing/ belts. Follow up: Dr. Shah 11/03 11:30am Call the office at [phone] (Office) or [phone] (Hospital), or go to the ER right away if you notice any of the followin. Vomiting blood and /or ?coffee ground? material. ?2. Worsening of abdominal pain or cramping. ?3. Trouble with breathing, cough, and/or fever (temperature above 101.5 F). 4. Increasing pain with swallowing. ?5. Chest pain. 6. Any new symptoms. 7. Worsening of the redness at the IV site ? Activity:: see above Diet:: see above Discharge Orders Discharge Orders: Discharge Order (Routine); Ordered 10/20/21 Ordered By: Thais Shah Discharge Data Discharge Date/Time-TO BE ENTERED AT DEPARTURE: 10/21/21 11:08 Discharge Comment: Pt belongings sent home w/ Pt. DS: Diagnosis Discharge Diagnosis (1) COVID-19: (2) Smoker: Status: Chronic (3) Chronic GERD: Status: Acute
== END 2021-10-21 11:08 | disposition home or self-care (01) ==
PROVIDERS: PCP Nurse Practitioner Family; Visit Provider Surgery
PROC: 0DJ68ZZ Inspection of Stomach, Via Natural or Artificial Opening Endoscopic (ICD-10-PCS; CPT 43235; principal; 2021-10-21 08:15)
DX: K21.9 Gastro-esophageal reflux disease without esophagitis (principal); K44.9 Diaphragmatic hernia without obstruction or gangrene; F41.9 Anxiety disorder, unspecified; F32.A Depression, unspecified; F17.210 Nicotine dependence, cigarettes, uncomplicated; K31.89 Other diseases of stomach and duodenum; K22.89 Other specified disease of esophagus
CPT/HCPCS: 43239; 88305; 71260; 74160; J2001; J3490; Q9967

== ENCOUNTER 2021-10-26 01:17 | Outpatient (CLI) | payer MEDICAID, SELFPAY ==
--- NOTE | 2021-10-26 09:55 | DI.RAD_ITS ---
Exam(s) RF BARIUM SWALLOW UGI EXAM: RF BARIUM SWALLOW UGI CLINICAL HISTORY: hiatal hernia,CHRONIC GERD,K21.9,K44.9 TECHNIQUE: COMPARISON: CR CHEST 2 VIEWS PA,LAT from 05/23/2011 FINDINGS: Preliminary views of the chest and neck show no specific abnormality. Barium was ingested and showed normal esophageal motility and mucosal appearance. Gastric and duodenal mucosa appear intact as vis ualized, no evidence of ulcer disease. No evidence of obstruction. IMPRESSION: Negative barium swallow and upper GI series Fluoro dose 17.3 mGy RADIATION DOSE DELIVERED: Total DLP
[2021-10-26] MEDS: Barium Sulfate 60% W/V 355 ML BTL 300 ML PO (10:02)
== END 2021-10-26 01:37 ==
PROVIDERS: PCP Nurse Practitioner Family; Visit Provider Surgery
DX: F17.200 Nicotine dependence, unspecified, uncomplicated (principal); K21.9 Gastro-esophageal reflux disease without esophagitis; K44.9 Diaphragmatic hernia without obstruction or gangrene
CPT/HCPCS: 74221; 74246

== ENCOUNTER 2021-11-10 01:46 | Outpatient (CLI) | payer MEDICAID, SELFPAY ==
--- NOTE | 2021-11-10 06:45 | DI.MRI_ITS ---
Exam(s) MR LOWER JOINT RT WO EXAM: MR LOWER JOINT RT WO CLINICAL HISTORY: Trauma to right knee 10 days ago,ain,m25.561 TECHNIQUE: Multiplanar multisequence MRI was performed.. CR,XR XR KNEE RT 4V AP,LAT,MARICARMEN,PAT from 10/17/2021 FINDINGS: MR examination of the knee was performed according to the usual protocol. There is a moderate sized knee joint effusion. There is a small multiloculated fluid collection benson cent to the tibial fibular joint extending adjacent to the popliteus muscle a, this probably originat es from the knee joint posteriorly and is presumably associated with a lateral meniscal tear. There is abnormal signal in the periphery of the medial tibial plateau, presumably representing bony trabecular injury without evidence of his discrete fracture. Medial tibiofemoral joint: The articular cartilage of the femur and tibia appears well maintained. T here is a focal tear of the posterior horn of the medial meniscus which appears nondisplaced. The me dial collateral ligament appears intact. No posteromedial corner injury seen. Lateral tibiofemoral joint: The articular cartilage of the femur and tibia appears mildly thinned per iod. The lateral meniscus is torn, with a nondisplaced tear, complex, of the body and anterior horn. There is a presumed associated meniscal cyst extending adjacent to the popliteus and tibiofibular j oint posteriorly period. The lateral collateral ligament complex and posterolateral corner structure s appear intact. Patellofemoral joint and extensor mechanism: The articular cartilage of the patellofemoral joint show s abnormal signal and some collapse which do not appear to reach the cortex, grade 2 chondromalacia p eriod. The superior and inferior patellar fat pads appear normal with no signal abnormality. The quadriceps tendon and patellar tendon appear intact with no evidence of a tear or significant priyanka ma. The medial and lateral retinacula appear intact. Cruciate ligaments: Cruciate ligaments and attachments appear normal with no evidence of a tear. Tibiofibular joint: No specific abnormality involving the tibiofibular joint. IMPRESSION: Medial and lateral meniscal tear is as described above, these are essentially nondisplaced. Presumed meniscal cyst extending from posterior aspect lateral tibiofemoral joint. Presumed bony trabecular injury of medial tibial plateau. Chondromalacia patellae grade2. Mild articular cartilage thinning of medial and lateral tibiofemoral joints DATA REPOSITORY:
== END 2021-11-10 02:06 ==
PROVIDERS: PCP Nurse Practitioner Family; Visit Provider Nurse Practitioner Family
DX: M25.561 Pain in right knee (principal); S83.281A Other tear of lateral meniscus, current injury, right knee, initial encounter; S83.241A Other tear of medial meniscus, current injury, right knee, initial encounter; M22.41 Chondromalacia patellae, right knee
CPT/HCPCS: 73721

== ENCOUNTER → 2022-05-15 13:32 | Outpatient (CLI) | payer MEDICAID, SELFPAY ==
--- NOTE | 2022-05-15 10:30 | DI.RAD_ITS ---
Exam(s) XR CHEST 2V PA LATERAL EXAM: XR CHEST 2V PA LATERAL CLINICAL HISTORY: Significant thrush oral infection with now..... R07.9 CHEST PAIN TECHNIQUE: 2D digital imaging was performed of the chest. Two images were obtained. PA and lateral views were obtained. COMPARISON: CR,RF RF BARIUM SWALLOW UGI from 10/26/2021 FINDINGS: MEDIASTINUM: Normal. HEART: Normal. PULMONARY VASCULATURE: Normal. LUNGS: Clear. PLEURAL SPACE: No pleural effusion or pneumothorax. BONE:Within normal limits for the patient's age. OTHER FINDINGS:Normal. IMPRESSION: No acute pulmonary findings. DATA REPOSITORY: RADIATION DOSE DELIVERED:
== END ==
PROVIDERS: PCP Nurse Practitioner Family; Visit Provider Nurse Practitioner Family
DX: R07.9 Chest pain, unspecified (principal)
CPT/HCPCS: 71046

== ENCOUNTER 2022-05-26 01:36 | Outpatient (CLI) | payer MEDICAID, SELFPAY ==
--- OUTSIDE RECORDS SUMMARY | 2022-05-26 01:43 | XMS_ITS | Clinical Summary ---
:1970 Author Organization [place] [address] Care Team Providers Name Role Phone Nico Conley MD Primary Care Provider Allergies Active Allergy Reactions Severity Noted Date Comments Codeine Phosphate CIS - faci al swelling Medications Medication Sig Dispensed Refills Start Date End Date Status omeprazole (PriLOSEC) Take 20 mg by 0 12/24/2020 Active 20 mg Capsule, Delayed mouth daily. Release(E.C.) LORazepam (Ativan) 1 mg Take 1 mg by 0 12/10/2020 Active Tablet mouth daily. Social History Tobacco Use Types Packs/Day Years Used Date Smoking Tobacco: Smoker, Current Status Unknown Smokeless Tobacco: Never Snuff Sex Assigned at Date Recorded Not on file Plan of Treatment Health Maintenance Due Date Last Done Comments Hepatitis B vaccine (0-59 yrs) (1 of 3 - 3-dose 1970 series) Covid-19 Vaccine (#1) 02/03/1970 Pneumococcal Vaccine: At-Risk 5-64yrs (1 - PCV) 1975 HIV screen 1987 Lipid Screening 1987 Tdap adult 1988 Tetanus vaccine 1988 HPV test 1999 PAP Smear 1999 Breast Cancer Share Decision Needed 2009 Colonoscopy 2014 Breast Cancer screening 2019 Zoster vaccine (1 of 2) 2019 Influenza (Flu) vaccine (1 of 1 - Influenza standard 03/09/2022 series) Hepatitis C Screening Completed 10/31/2018 Insurance Payer Benefit Plan / Subscriber ID Effective Dates Phone Addre ss Type [place] [id number] 2018-Prese [phone] [address] [facility] [address] [place], [place] [id number] Care Teams Perfect Bind Machine Operator Relationship Specialty Start Date End Date Nico Conley MD PCP - General Family Medicine 10/31/[address] [place], [place] [address]
--- OUTSIDE RECORDS SUMMARY | 2022-05-26 01:43 | XMS_ITS | Clinical Summary ---
:[address] [facility] Address [address] [place] [address] Care Team Providers Name Role Phone Nico Conley MD Primary Care Provider Unavailable Allergies Active Allergy Reactions Severity Noted Date Comments Codeine Nausea And Vomiting Medium 07/13/2011 Morphine Hives Medium 07/13/2011 Oxycodone-Acetaminophen Nausea And Vomiting Medium 07/13/2011 Medications Medication Sig Dispensed Refills Start Date End Date Status ibuprofen (MOTRIN) 400 Take 800 mg by 0 Active mg tablet mouth every 8 hours as needed. 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 Surgical History Surgery Date Site/Laterality Comments INTRAUTERINE DEVICE INSERTION pickett rgically removed CARPAL TUNNEL RELEASE Rt LYMPHADENECTOMY bilateral, ingui nal TONSILLECTOMY TUBAL LIGATION Medical History Medical History Date Comments Fractured coccyx (HCC-CMS) ([facility]) 1982 Herniated disc L1 and L5 Social History Tobacco Use Types Packs/Day Years Used Date Smoking Tobacco: Never Assessed Cigarettes 1 20 Sex Assigned at Date Recorded Not on file Obstetrics History Last Filed Vital Signs Vital Sign Reading Time Taken Comments Blood Pressure 113/56 07/14/2011 0805 EST Pulse 80 07/13/2011 2316 EST Temperature 36.3 ??C (97.3 ??F) 07/14/2011 0805 EST Respiratory Rate 17 07/14/2011 0805 EST Oxygen Saturation 99% 07/14/2011 0351 EST Inhaled Oxygen Concentration - - Weight 68.9 kg (152 lb) 07/13/2011 1121 EST Height 172.7 cm (5' 8) 07/13/2011 1121 EST Body Mass Index 23.11 07/13/2011 1121 EST Plan of Treatment Health Maintenance Due Date Last Done Comments Hepatitis C Screen 1970 COVID-19 Vaccine (#1) 02/03/1970 Insurance Payer Benefit Plan Subscriber ID Effective Phone Address Typ e / Group Dates MEDICAID ACO MEDICAID ACO [id number] 2021-Pres [phone] [address] Medicaid [place] ent [address], [place] [address] (Work) [id number] Advance Directives For more information, please contact: [phone] Latest Code Status on File Code Status Date Activated Date Inactivated Comments Full Code 07/13/2011 18:38 07/14/2011 11:04 Full Code 07/05/2011 14:08 07/13/2011 18:38 Care Teams Diamond Powder Mixer Relationship Specialty Start Date End Date Nico Conley MD PCP - General 06/29/11 [address] [place] [address]
--- OUTSIDE RECORDS SUMMARY | 2022-05-26 01:43 | XMS_ITS | Encounter Summary ---
:1970 Author Organization [facility] Address [address] [place] [address] Care Team Providers Name Role Phone Nico Conley MD Primary Care Provider Unavailable Encounter Details Date Type Department Care Team Description 06/24/2020 Lab Requisition [facility] Minerva Eisenberg Encounter for other Pathology & [address] [place] [address] Dr general examination Laboratory Medicine [facility] [id number] [address] [facility] [phone] [place] [address] (Work) [phone] Social History Tobacco Use Types Packs/Day Years Used Date Smoking Tobacco: Never Assessed Cigarettes 1 20 Sex Assigned at Date Recorded Not on file documented as of this encounter Functional Status Cognitive Status Response Date of Assessment Because of a physical, mental, or emotional condition, do Ye s 07/14/2011 you have serious difficulty concentrating, remembering, or making decisions? (5 years old or older) documented as of this encounter Plan of Treatment Not on filedocumented as of this encounter Procedures Procedure Name Priority Date/Time Associated Diagnosis Comme nts SURGICAL PATHOLOGY Today 06/23/2020 18:21 Encounter for othe r Results for this EST general examination procedur e are in the results section. documented in this encounter Results SURGICAL PATHOLOGY (06/23/2020 18:21 EST) Component Value Ref Test Analysis Performed At [facility] Range Method Time Signature Final A. UTERUS, CERVIX, RIGHT AND LEFT FALLOPIAN TUBES, HYSTERECTOMY AND BILATERAL SALPINGECTOMY: 06/30/2020 [facility] MEDICAL Diagnosis - Inactive endometrium. 16:14 EST CENTER - Myometrium with adenomyosi s and leiomyomas (subserosal, submucosal, and intramural). LABORATORY - Largest leiomyoma measures 3.5 cm in greatest dimension. SERVICES - Cervix with reactive epithelial changes. - Left fallopian tubes with endometriosis and tubo-ovarian a dhesion. - Right fallopian tube with no specific pathologic features . Diagnosis Water Fitness Instructor slides of anthony s case were reviewed at the intradepartmental consultation conference. 06/30/2020 [facility] MEDICAL Comment 16:14 [facility] SERVICES Attestation There was 06/30/2020 [facility] MEDICAL Elect ronically significant 16:14 [facility] signed kasey Lópze, resident/fellow LABORATORY Shannon abreu MD on involvement in the SERVICES 1 08/31/2019 at diagnostic 1614 evaluation of this case. By the signature below, the attending physician certifies that they have personally conducted a gross and/or microscopic examination of the described specimens and rendered or confirmed the above diagnosis. Clinical Uterine fibroids; 06/30/2020 [facility] MEDICAL History Dysmenorrhea 16:14 [facility] Gross A. 06/30/2020 [facility] MEDICAL Description Received in formalin brigitte d with proper patient identification (initials B, M) and uterus, cervix, right + left fallopian tube is an intact uterus and cervix (220.0 g, 10.3 cm cervix to fundus x 9 16:14 [facility] .6 cm cornu to cornu x 7.7 c m anterior to posterior) with detached fimbriated bilateral fallopian tubes (right: 4.4 cm in length by 0.5 cm in diameter and left: 3.9 cm in length by 0.7 cm in diameter) p LABORATORY resent within the container. The orientation of fallopian tubes is determined using a fallopi ring which is still attached to the left cornu of the uterus. SERVICES The uterine serosa is clark to light brown, focally purple, and bosselated. The endometrium is smooth, light clark, and focally hyperemic and has a thickness of 0.1 cm. The myometrium is light clark and range s from 2.1 cm to 0.7 cm in t hickness. There are multiple myomatous nodules of varying sizes (ranging from 0.2-3.5 cm) present throughout the endomyometrium (subserosal, submucosal, and intramural). Whil e most of these nodules have a whorled appearance and are white, a few small hemorrhagic foci are present ranging in size from 0.1-1.1 cm. The ectocervix is white, and the endocervix is clark, brown and s mooth. The fallopian tubes h ave purple serosa and sectioning discloses clark cut surface with a pinpoint lumen throughout. The fallopi ring of the right fallopian tube is identified near the isthmus. The left fallopian tube contains a 1.2 cm in diameter clear fluid-filled paratubal cyst near the fimbriated end. Water Fitness Instructor sections are submitted as follows: BLOCK SAENZ A1-A2- anterior endomyometri um, bisected, inked on continuous cut surfaces for orientation purposes A3- posterior endomyometrium A4- anterior cervix A5- posterior cervix A6- uterine fundus with focal area of hemorrhage/clot A7-A9- myomatous nodules, 12 sections A10-A11- entire longitudinal ly bisected fimbriated ends and 2 cross-sections of the left fallopian tube A12-A13- entire longitudinal ly bisected fimbriated ends of right fallopian tube A14- 2 cross-sections of right fallopian tube LUIS HENDRICKS MD 06/25/2020 10:58 Resident/Brody Hendricks, 06/30/2020 [facility] MEDICAL ow: MD Luis 16:14 [facility] LABORATORY SERVICES Performing [facility] 06/30/2020 [facility] MEDIC AL Lab 16:14 [facility] LABORATORY SERVICES Scanned 06/30/2020 [facility] MEDICAL Images 16:14 [facility] LABORATORY SERVICES Specimen Anatomical Collection Method Collection Time Receive d Time (Source) Location / / Volume Laterality Tissue SPECIMEN FROM 06/23/2020 18:21 06/24/2020 UTERUS / Unknown EST 23:13 EST Minerva Eisenberg PATHOLOGY ORDERABLES Performing Organization Address City/State/ZIP Code Phon e Number [facility] [address] [place] [address] SERVICES documented in this encounter Visit Diagnoses Diagnosis Encounter for other general examination documented in this encounter Care Teams Cloth Folder Machine Relationship Specialty Start Date End Date Nico Conley MD PCP - General 06/29/11 [address] [place] [address] documented as of this encounter
--- OUTSIDE RECORDS SUMMARY | 2022-05-26 01:43 | XMS_ITS | Encounter Summary ---
:1970 Author Organization [facility] Address [address] [place] [address] Care Team Providers Name Role Phone Nico Conley MD Primary Care Provider Unavailable Encounter Details Date Type Department Care Team Description 12/24/2020 Lab Requisition [facility] Thais Shah for Pathology & M, DO screening for Laboratory Medicine - [address] ma lignant neoplasm of [address] colon [address] [place] [phone] Social History Tobacco Use Types Packs/Day Years [...] Associated Diagnosis Comme nts SURGICAL PATHOLOGY Today 12/24/2020 8:20 EDT Encounter for R esults for this screening for procedure are in malignant neoplasm the resul ts of colon section. documented in this encounter Results SURGICAL PATHOLOGY (12/24/2020 8:20 EDT) Component Value Ref Test Analysis Performed At [facility] Range Method Time Signature Final A. RECTUM, POLYP, BIOPSY: 12/27/2020 [facility] Diagnosis - Tubulovillous adenoma. 17:35 EDT CENTE R LABORATORY SERVICES Attestation By the signature 12/27/2020 [facility] Electronically below, the 17:35 EDT CENTER signed by attending LABORATORY Buckley, R ebecca, physician SERVICES on 12/27 certifies that at 17 35 they have 1) personally conducted a gross and/or microscopic examination of the described specimen(s), and/or personally interpreted the results of laboratory testing of the described specimen(s), and 2) personally rendered or confirmed the above diagnosis. Clinical Colon cancer 12/27/2020 [facility] History screening 17:35 [facility] SERVICES Gross A. 12/27/2020 [facility] Description Received in formalin brigitte d with proper patient identification (initials B, M) and rectal polyp is a single clark-brown polypoid tissue (0.5 x 0.4 x 0.3 cm). Submitted intact in A1. 17:35 EDT CE [facility] LABORATORY SYL[facility]STER ROBERTS(ASC) 12/25/2020 11:01 SERVICES Performing Lab [facility] 12/27/2020 [facility] AL LAB 17:35 [facility] SERVICES Scanned Images 12/27/2020 [facility] 17:35 [facility] SERVICES Specimen Anatomical Collection Method Collection Time Receive d Time (Source) Location / / Volume Laterality Tissue SPECIMEN FROM 12/24/2020 8:20 12/24/2020 [facility] / Unknown EDT 16:27 EDT Thais Shah DO PATHOLOGY ORDERABLES Performing Organization Address City/State/ZIP Code Phon e Number [facility] [address] [place] [address] SERVICES documented in this encounter Visit Diagnoses Diagnosis Encounter for screening for malignant ne oplasm of colon Special screening for malignant neoplasm s, colon documented in this encounter Care Teams Water Use Inspector Relationship Specialty Start Date End Date Nico Conley MD PCP - General 06/29/11 [address] [place] [address] documented as of this encounter
--- OUTSIDE RECORDS SUMMARY | 2022-05-26 01:43 | XMS_ITS | Encounter Summary ---
:1970 Author Organization [facility] Address [address] [place] [address] Care Team Providers Name Role Phone Nico Conley MD Primary Care Provider Unavailable Encounter Details Date Type Department Care Team Description 07/29/2020 Lab Requisition [facility] Outr Resulting Lab, Pathology & Laboratory Provider [facility] [address] [place], [place] [id number] Social History Tobacco Use Types Packs/Day Years [...] Name Priority Date/Time Associated Diagnosis Comme nts COVID-19 TEST [facility] Today 07/29/2020 15:30 LAB PCR EST COVID-19 TESTING Routine 07/29/2020 15:30 Results for this EST procedure are i n the results section. documented in this encounter Results COVID-19 TEST [facility] PCR (07/29/2020 15:30 EST) Specimen Anatomical Location Collection Method Collection Time Received Time (Source) / Laterality / Volume Swab ENTIRE NASOPHARYNX 07/29/2020 15:30 07/29 / Unknown EST 20:27 EST Provider Outr Resulting Lab MICROBIOLOGY - GENERAL ORD ERABLES Performing Organization Address City/State/ZIP Code Phon e Number [facility] [address] [place] [address] SERVICES COVID-19 TESTING (07/29/2020 15:30 EST) Analysis Performed At Patho logist Time Signature COVID-19 Negative Negative 07/30/2020 [facility] rt-PCR Result 16:17 EST CENTER LABORATORY SERVICES Comment: Negative results do not preclude 2019-nC oV infection and should not be used as the sole basis for treatment or other patient management decisions. Negative results must be combined with clinical observa tions, patient history, and epidemiologi jaquan information. This test was developed and its performa nce characteristics determined by [facility]. It has not been cleared or approved by the US Food and Drug Administration. FDA does not require this test to go through premarket FDA review. This test is used for clinical purposes. It should not be regarded as investigational or for research. This laboratory is certified under the Clinical Laboratory Improvement Amendm ents (CLIA) as qualified to perform high complexity clinical laboratory testing. This test is based on the [facility] COVID-19 E mergency Use Authorization (EUA) assay, with minor modification as defined by the FDA Performed on the [employer] 7 Flex RT-PCR System. Performing Lab [facility] Lab 07/30/2020 16:17 EST [facility] SERVICES Specimen Anatomical Collection Method Collection Time Receive d Time (Source) Location / / Volume Laterality Swab 07/29/2020 15:30 07/29/2020 EST 20:27 EST Provider Outr Resulting Lab MICROBIOLOGY - GENERAL ORD ERABLES Performing Organization Address City/State/ZIP Code Phon e Number [facility] [address] [place] [address] SERVICES documented in this encounter Visit Diagnoses Not on filedocumented in this encounter Care Teams Housekeeper Caregiver Relationship Specialty Start Date End Date Nico Conley MD PCP - General 06/29/11 [address] [place] [address] documented as of this encounter
--- OUTSIDE RECORDS SUMMARY | 2022-05-26 01:43 | XMS_ITS | Encounter Summary ---
:1970 Author Organization [facility] Address [address] [place] [address] Care Team Providers Name Role Phone Nico Conley MD Primary Care Provider Unavailable Encounter Details Date Type Department Care Team Description 10/21/2021 Lab Requisition [facility] Thais Shah ro-esophageal Pathology & M, DO reflux disease Laboratory Medicine - [address] wi thout esophagitis [facility] [address] [place] [phone] Social History Tobacco Use Types Packs/Day Years [...] Associated Diagnosis Comme nts SURGICAL PATHOLOGY Today 10/21/2021 9:12 EDT Gastro-esophage al Results for this reflux disease procedure are in without esophagitis the resu lts section. documented in this encounter Results SURGICAL PATHOLOGY (10/21/2021 9:12 EDT) Component Value Ref Test Analysis Performed At [facility] Method Time Signature Note to The following 10/25/2021 [facility] MED[facility] Patient pathology results 12:39 EDT CENTER have been LABORATORY interpreted by SERVICES your pathologist and may be available to you before your health provider has had the opportunity to review them. Please allow time for your provider to receive these results and explore management options, if applicable. Final A. JEJUNUM, PROXIMAL, BIOPSY: 10/25/2021 [facility] Diagnosis - Small intestinal mucosa wi th no significant diagnostic abnormalities. 12:39 [facility] B. DUODENUM, BULB, BIOPSY: SER VICES - Duodenal mucosa with no significant diagnostic abnormaliti es. C. STOMACH, ANTRUM, BIOPSY: - Antral mucosa with reactive (chemical) gastropathy. - Negative for Helicobacter pylori on H&E stained sections. D. STOMACH, GREATER CURVATURE, BIOPSY: - Gastric fundic mucosa with no significant diagnostic abnor malities. - Negative for Helicobacter pylori on H&E stained sections. E. STOMACH, THORACIC, BIOPSY: - Fundic mucosa with moderat e parietal cell hyperplasia; suggestive of fundic gland polyp. F. GASTROESOPHAGEAL JUNCTION, BIOPSY: - Squamous mucosa with mild reactive changes. Attestation By the signature 10/25/2021 [facility]ICA L Electronically below, the 12:39 [facility] signed by Lydia attending LABORATORY Stefanie Mensah MD physician SERVICES on 10/26/19 22 at certifies that 1239 they have 1) personally conducted a gross and/or microscopic examination of the described specimen(s), and/or personally interpreted the results of laboratory testing of the described specimen(s), and 2) personally rendered or confirmed the above diagnosis. Clinical GERD; clinical diagnosis code: K21.9 [facility] MED[facility] History 12:39 [facility] LABORATORY SERVICES Gross A. 10/25/2021 [facility] Description Received in formalin brigitte d with proper patient identification (initials B, M) and proximal jejunum Bx is a dusky clark tissue (0.3 x 0.3 x 0.2 cm). Submitted intact in A1. 12:39 [facility] B. SERVICES Received in formalin brigitte d with proper patient identification (initials B, M) and duodenal bulb Bx is a pale clark-white tissue (0.2 x 0.2 x 0.1 cm). Submitted intact in B1. C. Received in formalin brigitte d with proper patient identification (initials B, M) and antrum Bx is a pale clark-white focally brown speckled tissue (0.4 x 0.4 x 0.2 cm). Submitted intact in C1. D. Received in formalin brigitte d with proper patient identification (initials B, M) and greater curve Bx is a clark tissue (0.4 x 0.3 x 0.2 cm). Submitted intact D1. E. Received in formalin brigitte d with proper patient identification (initials B, M) and thoracic stomach Bx 40 cm is a pale clark-white tissue (0.3 x 0.3 x 0.2 cm). Submitted intact in E1. F. Received in formalin brigitte d with proper patient identification (initials B, M) and GE junction Bx 45 cm is a white focally brown speckled tissue (0.3 x 0.2 x 0.1 cm). Submitted intact in F1. Norris Fernandez 10/24/2021 9:17 Performing Lab [facility] 10/25/2021 [facility] EDICAL 12:39 T CENTER LABORATORY SERVICES Scanned Images 10/25/2021 [facility] 12:39 [facility] LABORATORY SERVICES Specimen Anatomical Collection Method Collection Time Receive d Time (Source) Location / / Volume Laterality Tissue ENTIRE 10/21/2021 9:12 10/21/2021 ESOPHAGO-GASTRIC EDT 16:46 EDT MUCOSAL JUNCTION / Unknown Tissue specimen ENTIRE SMALL 10/21/2021 9:12 2 (specimen) INTESTINE / EDT 16:46 EDT Unknown Tissue specimen ENTIRE STOMACH / 10/21/2021 9:12 10/21 (specimen) Unknown EDT 16:46 EDT Tissue specimen ENTIRE STOMACH / 10/21/2021 9:12 10/21 (specimen) Unknown EDT 16:46 EDT Tissue specimen ENTIRE STOMACH / 10/21/2021 9:12 10/21 (specimen) Unknown EDT 16:46 EDT Tissue specimen ENTIRE 10/21/2021 9:12 2 (specimen) ESOPHAGO-GASTRIC EDT 16:46 EDT MUCOSAL JUNCTION / Unknown Thais Shah DO PATHOLOGY ORDERABLES Performing Organization Address City/State/ZIP Code Phon e Number [facility] [address] [place] [id number] SERVICES documented in this encounter Visit Diagnoses Diagnosis Gastro-esophageal reflux disease without esophagitis Esophageal reflux documented in this encounter Care Teams Advanced Practice Rn Relationship Specialty Start Date End Date Nico Conley MD PCP - General 06/29/11 [address] [place] [address] documented as of this encounter
--- OUTSIDE RECORDS SUMMARY | 2022-05-26 01:43 | XMS_ITS | Encounter Summary ---
:1970 Author Organization [facility] Address [address] [place] [id number] Care Team Providers Name Role Phone Kyleigh Yun MD Primary Care Provider Unavailable Encounter Details Date Type Department Care Team Description 05/04/2014 Results Only [facility] Lela Enamorado, LIVESTOCK DEALER Laboratory Services - [address] [address] Social History Tobacco Use Types Packs/Day Years [...] Name Priority Date/Time Associated Diagnosis Comme nts PAP TEST- RESULT Routine 05/04/2014 0:00 EDT Resu lts for this ONLY procedure are i n the results section. documented in this encounter Results PAP TEST- RESULT ONLY (05/04/2014 0:00 EDT) Component Value Ref Test Analysis Performed At [facility] Range Method Time Signature Pathology CYTOPATHOLOGY REPORT [facility] MEDIC AL Report: CENTER Reports generated via electronic interface contain origina l data; LABORATORY however they are lacking the format of the original report. SERVICES Caution should be taken when reading/interpreting unformatte d reports. Name: ? MILAGRO GORDON ? Accession #: ? [id number] : ? 1970 (Age: 43) ??F ?Collect Date: ? 05/04/2014 Location: ? [facility] ? Receive Date: ? 05/05/2014 Provider: ?LELA ENAMORADO LIVESTOCK DEALER Copy to: ?KYLEIGH YUN MD ? Specimen/Source: ? Pap Test, Cervix/Endocervix, ThinPrep Imaging System with manual evaluation Last Menstrual Period: ? 04/30/14 ? SPECIMEN ADEQUACY ? Unsatisfactory for Evaluation, - insufficient numbers of squamous epith elial cells (less than 10% of expected cellularity) - obscuring contamination, possibly lubricant GENERAL CATEGORIZATION ? Specimen processed and examined, but unsatisfac tory for evaluation of epithelial abnormality. ??Recommend repe at Pap test in 2-4 months as stated in ASCCP's 2012 Updated Consensus Guidelines. ? Document reviewed and electronically signed by: ? BETTY Reyna([facility]) ? Report Date: ??05/12/2014 09:16 End of Report Specimen (Source) Anatomical Location Collection Method / Collectio n Time Received Time / Laterality Volume 05/04/2014 05/05/2014 Lela Enamorado NP PATHOLOGY ORDERABLES Performing Organization Address City/State/ZIP Code Phon e Number [facility] [address] [place] [address] SERVICES documented in this encounter Visit Diagnoses Not on filedocumented in this encounter Care Teams Plush Cutter Relationship Specialty Start Date End Date Kyleigh Yun MD PCP - General 06/29/11 [address] [place] [address] documented as of this encounter
--- OUTSIDE RECORDS SUMMARY | 2022-05-26 01:43 | XMS_ITS | Encounter Summary ---
:1970 Author Organization [facility] Address [address] [place] [address] Care Team Providers Name Role Phone Nico Conley MD Primary Care Provider Unavailable Encounter Details Date Type Department Care Team Description 07/05/2011 Pre-Procedure Orders [facility] Sayra Andrea im Encounter Cardiology - Amraa Schmitz MD [address] [place], [place] [id number] [place] [address] [phone] (Wo rk) Social History Tobacco Use Types Packs/Day Years Used Date Smoking Tobacco: Never Assessed Sex Assigned at Date Recorded Not on file documented as of this encounter Plan of Treatment Not on filedocumented as of this encounter Procedures Procedure Name Priority Date/Time Associated Diagnosis Comme nts CARDIAC ABLATION Routine 07/13/2011 14:13 Results for this PROCEDURE EST procedure are i n the results section. documented in this encounter Results CARDIAC ABLATION PROCEDURE (07/13/2011 14:13 EST) Anatomical Region Laterality Modality Other Specimen (Source) Anatomical Collection Method Collection Time Re ceived Time Location / / Volume Laterality 07/13/2011 14:13 EST Narrative 07/13/2011 14:13 EST See Notes Tab. Procedure Note 07/13/2011 See Notes Tab. Johnson Andrea MD CARDIAC EP ORDERABLES documented in this encounter Visit Diagnoses Not on filedocumented in this encounter Orders Medications Ordered That Might Not Have Count Last Ord ered Date First Ordered Date Been Administered sodium chloride 0.9 % (NS) infusion 1 07/05/2011 documented in this encounter Care Teams Orthopedic Brace Maker Relationship Specialty Start Date End Date Nico Conley MD PCP - General 06/29/11 [address] [place] [address] documented as of this encounter
--- OUTSIDE RECORDS SUMMARY | 2022-05-26 01:43 | XMS_ITS | Encounter Summary ---
:1970 Author Organization [facility] Address [address] [place] [address] Care Team Providers Name Role Phone Unavailable Primary Care Provider Unavailable Encounter Details Date Type Department Care Team Description 08/11/2002 Results Only [facility] - Jesica Deutsch CNM [facility] [address] [place] [phone] Social History Tobacco Use Types Packs/Day Years Used Date Smoking Tobacco: Never Assessed Sex Assigned at Date Recorded Not on file documented as of this encounter Plan of Treatment Not on filedocumented as of this encounter Procedures Procedure Name Priority Date/Time Associated Diagnosis Comme [facility] CYTOPATHOLOGY Routine 08/11/2002 0:00 EST Results for this procedure are i n the results section . documented in this encounter Results CYTOPATHOLOGY (08/11/2002 0:00 EST) Component Value Ref Test Analysis Performed At [facility] Method Time Signature Pathology CYTOPATHOLOGY REPORT [facility] Report: [facility] Reports generated via electronic interface contain original data; however they are lacking the format of the original report. Caution should be taken when reading/interpreting unformatte d reports. Name: ? MILAGRO GORDON ? Accession #: ? [id number] : ? 1970 (Age: 32) ??F ?Collect Date: ? 08/11/2002 Location: ? [facility] ? Receive Date: ? 08/12/2002 Provider: ?JESICA VALDOVINOS CNM Copy to: ? Specimen/Source: ?ThinPrep Pap Test, Cervix/Endoce rvix Last Menstrual Period: ? 10/04/01 Menstrual/ Status: ? Post ? SPECIMEN ADEQUACY ? Satisfactory for Evaluation - transformation zone component present GENERAL CATEGORIZATION ? Negative for Intraepithelial Lesion or Malignancy INTERPRETATION ? Shift in mary present suggestive of bacterial vagino sis. ? Document reviewed and electronically signed by: ? Milagro Ayala, BETTY(ASCP) ? Report Date: ??08/13/2002 09:58 End of Report Specimen (Source) Anatomical Location Collection Method / Collectio n Time Received Time / Laterality Volume 08/11/2002 08/12/2002 Jesica Valdovinos CNM PATHOLOGY ORDERABLES Performing Organization Address City/State/ZIP Code Phon e Number [facility] [address] [place] [address] SERVICES [facility] [address] [place] [address] documented in this encounter Visit Diagnoses Not on filedocumented in this encounter
--- OUTSIDE RECORDS SUMMARY | 2022-05-26 01:43 | XMS_ITS | Encounter Summary ---
:1970 Author Organization [facility] Address [address] [place] [address] Care Team Providers Name Role Phone Nico Conley MD Primary Care Provider Unavailable Encounter Details Date Type Department Care Team Description 06/09/2020 Lab Requisition [facility] Nhung Whittington En counter for other Pathology & A, NURSING TECHN general examination Laboratory Medicine [address] [place], [place] [address] [facility] [phone] [place] [address] Social History Tobacco Use Types Packs/Day Years [...] Associated Diagnosis Comme nts SURGICAL PATHOLOGY Today 06/09/2020 9:20 EST Encounter for o ther Results for this general examination procedur e are in the results section. documented in this encounter Results SURGICAL PATHOLOGY (06/09/2020 9:20 EST) Component Value Ref Test Analysis Performed At [facility] Range Method Time Signature Final A. ENDOMETRIUM, BIOPSY: 06/14/2020 [facility] EDICAL Diagnosis - Proliferative endometrium with focal breakdown. 14:29 EST CENTER LABORATORY SERVICES Attestation There was 06/14/2020 [facility] MEDICAL Elect ronically significant 14:29 EST CENTER signed b y resident/fellow LABORATORY But Lashell iraheta, involvement in SERVICES MD on 06/14/2020 the diagnostic at 14 29 evaluation of this case. By the signature below, the attending physician certifies that they have personally conducted a gross and/or microscopic examination of the described specimens and rendered or confirmed the above diagnosis. Clinical AUB; prolonged 06/14/2020 [facility] MEDICAL History bleeding 14:29 [facility] SERVICES Gross A. 06/14/2020 [facility] MEDICAL Description Received in formalin brigitte d with proper patient identification (initials B, M) and endometrium is an abundant amount of dark red blood clot with a minimal amount of admixed clark-pink tissues (1.4 x 1.3 x 0.4 cm). Entirely submitted in A1. 14:29 [facility] LABORATORY SYLVESTER MORRIS(ASCP) 06/09/2020 16:29 SERVICES Resident/Roberto Wild 06/14/2020 [facility] MEDIC AL w: DO Nico 14:29 [facility] LAB[facility] SERVICES Performing Lab [facility] 06/14/2020 [facility] MEDIC AL LAB 14:29 [facility] LABORAT[facility] SERVICES Scanned Images 06/14/2020 [facility] MEDICAL 14:29 [facility] LAB[facility]AT[facility] SERVICES Specimen Anatomical Location Collection Method Collection Time Received Time (Source) / Laterality / Volume Tissue ENTIRE ENDOMETRIUM 06/09/2020 9:20 2019 / Unknown EST 16:12 EST Nhung Whittington APRN PATHOLOGY ORDERABLES Performing Organization Address City/State/ZIP Code Phon e Number [facility] [address] [place] [phone] SERVICES documented in this encounter Visit Diagnoses Diagnosis Encounter for other general examination documented in this encounter Care Teams Waterway Traffic Checker Relationship Specialty Start Date End Date Nico Conley MD PCP - General 06/29/11 [address] [place] [address] documented as of this encounter
--- OUTSIDE RECORDS SUMMARY | 2022-05-26 01:43 | XMS_ITS | Encounter Summary ---
:1970 Author Organization [facility] Address [address] [place] [address] Care Team Providers Name Role Phone Unavailable Primary Care Provider Unavailable Encounter Details Date Type Department Care Team Description 08/12/2004 Results Only [facility] - Marilia Nguyen, Chr istopher, conversion DO [address] [facility] [address] [facility] [address] [place], [place] [id number] [place] [id number] (Wo rk) Social History Tobacco Use Types Packs/Day Years Used Date Smoking Tobacco: Never Assessed Sex Assigned at Date Recorded Not on file documented as of this encounter Plan of Treatment Not on filedocumented as of this encounter Procedures Procedure Name Priority Date/Time Associated Diagnosis Comme [facility] SURGICAL PATHOLOGY Routine 08/12/2004 0:00 EST Re sults for this procedure are i n the results section. documented in this encounter Results SURGICAL PATHOLOGY (08/12/2004 0:00 EST) Component Value Ref Test Analysis Performed At [facility] Method Time Signature Pathology SURGICAL PATHOLOGY REPORT GAUDENCIO SÁNCHEZ Report: Reports generated via electronic interface contain origina l data; FRAN COLLINS however they are lacking the format of the original report. Caution should be taken when reading/interpreting unformatte d reports. Name: ? MILAGRO GORDON ? Accession #: ? [id number] ? : ? 1970 (Age: 34) ??F ? Collect Date: ? 08/12/2004 ? Location: ? [facility] ? Receive Date: ? 08/15/2004 ? Provider: CHRISTI NGUYEN DO Copy to: TOSHIA BROOKS MD ? Final Pathologic Diagnosis: A. ?Colon, cecum, biopsy: 1. ?Fecal material. ??See comment. 2. ?No colonic mucosa identified. B. ?Colon, ascending, biopsy: 1. ?No specific pathologic features. C. ?Colon, transverse, biopsy: 1. ?Focal acute cryptitis. 2. ?No glandular architectural changes identifi ed. D. ?Colon, descending, biopsy: 1. ?Focal acute cryptitis. 2. ?No glandular architectural changes identifi ed. E. ?Colon, sigmoid, biopsy: 1. ?Focal acute cryptitis. 2. ?No glandular architectural changes identifi ed. F. ?Rectum, biopsy: 1. ?No specific pathologic features. Comment: ? These biopsy specimens show focal acute cryptitis with no architectural changes which is more characteristic of an acute, self-limit ing colitis of likely infectious etiology. ??No granulomas, increased thickness of collagen table, or increase in intraepithelial lymphocytes was identi fied. ??(Dr. Gutierrez)/[facility] Document reviewed and electronically signed by: MONICA ARGUETA MD Report ??Date: 08/17/2004 20:27 By the signature above, the attending physician certifies th at he/she has personally conducted a gross and/or microscopic examin ation of the described specimens and rendered or confirmed the above diagnosis. Specimen(s) Received: A. ?Bx of cecum (#1) B. ?Bx of ascending colon (#2) C. ?Bx of transverse colon (#3) D. ?Bx of descending colon (#4) ? E. ?Bx of sigmoid (#5) F. ?Rectum bx (#6) Clinical History: ? Hematochezia, diarrhea Gross Description: ? Received in [place]e' s fixative labelled Evan and bx of cecum is a less than 0.1 cm in greatest dimension a ggregate of green material, consistent with vegetative matter, subm itted in toto as (A). ??No soft tissue is identified. Received in Hollande' s fixative brigitte d Evan and bx of ascending colon is an irregular 0.1 x 0.1 x less than 0.1 cm clark-pink soft tissue, submitted in toto as (B). Received in Hollande' s fixative brigitte d Evan and bx of transverse colon is an irregular 0.2 x 0.1 x 0.1 cm clark-pink soft tissue, submitted in toto as (C). Received in Hollande' s fixative brigitte d Evan and bx of descending colon are two irregular clark-pink s oft tissues averaging 0.2 x 0.1 x 0.1 cm, submitted in toto as (D). Received in Hollande' s fixa tive labelled Evan and bx of sigmoid colon are three irregular clark-pink sof t tissues averaging 0.1 x 0.1 x 0.1 cm, submitted in toto as (E). Received in Hollande' s fixative labelled Evan and rectu m bx is an irregular 0.1 x 0.1 x 0.1 cm clark-pink soft tissue, sub mitted in toto as (F). (Missael Hare)/erin ?? End of Report Specimen (Source) Anatomical Collection Method Collection Time Re ceived Time Location / / Volume Laterality 08/12/2004 08/15/2004 14:4 9 EST Christi Nguyen DO PATHOLOGY ORDERABLES Performing Organization Address City/State/ZIP Code Phon e Number [facility] [address] [place] [address] [facility] [address] [place] [address] documented in this encounter Visit Diagnoses Not on filedocumented in this encounter
--- OUTSIDE RECORDS SUMMARY | 2022-05-26 01:43 | XMS_ITS | Encounter Summary ---
:1970 Author Organization [facility] [place] [address] Care Team Providers Name Role Phone Nico Conley MD Primary Care Provider Encounter Details Date Type Department Care Team Description 10/31/2018 Laboratory Appointment Lab [address]L [facility] Exposure to hepatitis [facility] [place] [address] Social History Tobacco Use Types Packs/Day Years Used Date Smoking Tobacco: Never Assessed Sex Assigned at Date Recorded Not on file documented as of this encounter Plan of Treatment Not on filedocumented as of this encounter Procedures Procedure Name Priority Date/Time Associated Diagnosis Comme nts HEPATITIS C Routine 10/31/2018 9:53 AM Exposure to Results f or this ANTIBODY EDT hepatitis C procedure are i n the results section. documented in this encounter Results Hepatitis C Antibody (10/31/2018 9:53 AM EDT) Analysis Performed At Patho logist Time Signature Hepatitis C Ab Negative Negative [facility] Specimen Anatomical Collection Method Collection Time Receive d Time (Source) Location / / Volume Laterality Blood specimen 10/31/2018 9:53 AM 019 (specimen) EDT 10:01 AM EDT Resulting Agency Comment Spec In Lab Ijeoma Garcia APRN IMMUNOLOGY ORDERABLES Performing Organization Address City/State/[place] [address] documented in this encounter Visit Diagnoses Diagnosis Exposure to hepatitis C Contact with or exposure to other viral diseases documented in this encounter Care Teams [employer] Relationship Specialty Start Date End Date Nico Conley MD PCP - General Family Medicine 10/31/[address] [place] [address] documented as of this encounter
--- OUTSIDE RECORDS SUMMARY | 2022-05-26 01:43 | XMS_ITS | Encounter Summary ---
:1970 Author Organization [facility] Address [address] [place] [address] Care Team Providers Name Role Phone Kyleigh Yun MD Primary Care Provider Unavailable Encounter Details Date Type Department Care Team Description 11/05/2012 Results Only [facility] Christi Nguyen , Laboratory Services - [address] [place] [address] [place] [address] [phone] Social History Tobacco Use Types Packs/Day Years [...] Priority Date/Time Associated Diagnosis Comme [facility] SURGICAL PATHOLOGY Routine 11/05/2012 8:42 EDT Re sults for this procedure are i n the results section. documented in this encounter Results SURGICAL PATHOLOGY (11/05/2012 8:42 EDT) Component Value Ref Test Analysis Performed At [facility] Method Time Signature Pathology SURGICAL PATHOLOGY REPORT GAUDENCIO SÁNCHEZ Report: Reports generated via electronic interface contain annmarie palencia data; FRAN COLLINS however they are lacking the format of the original report. Caution should be taken when reading/interpreting unformatte d reports. Name: ? CHRISTIAN GORDON ? Accession #: ? [id number] ? : ? 1970 (Age: 42) ??F ? Collect Date: ? 11/05/2012 ? Location: ? [facility] ? Receive Date: ? 11/06/2012 ? Provider: CHRISTI NGUYEN DO Copy to: KYLEIGH YUN MD ? Final Pathologic Diagnosis: A. ?Small bowel, duodenum, biopsies: 1. ?Non-specific chronic duodenitis with reac tive/regenerative epithelium; favor peptic duodenitis. ??See comment. ? B. ?? Stomach, antrum, biopsy: ? 1. ?? Antral mucosa with mild reactive epithelial chani nges. ? 2. ?? Negative for histopathologic features of Helico bacter pylori gastritis. C. ?? Stomach, body, biopsy: ? 1. ?? Oxyntic-type mucosa with no specific pathologic features. Comment: ? The duodenal biopsy ( specimen A) demonstrates chronic inflammation within the lamina propria. ??The villous architecture r emains intact, yet there is a clear reactive and regenerative enterocytes. Intraepithelial lymphocyte inflammation is not present. ??Though the Geovanny's glands a re prominent, foveolar metaplasia is not i dentified. ??Considerations based on the histologic finding would include a healing ulcer in a background of p eptic duodenitis. [facility] (Dr. Davis)/[facility] Document reviewed and electronically signed by: JOSE DAVIS MD Report ??Date: 11/09/2012 15:45 By the signature above, the attending physician certifies th at he/she has personally conducted a gross and/or microscopic examin ation of the described specimens and rendered or confirmed the above diagnosis. Specimen(s) Received: A. ?Bx duodenum B. ? Gastric antrum C. ? Body of stomach Clinical History: ? Epigastric pain Gross Description: ? Received in formalin labelled Evan, Demario hele and duodenum are four clark-pink biopsies which vary in size fro m 0.4 x 0.3 x 0.2 cm up to 0.4 x 0.4 x 0.2 cm. ??The specimens are submitted intact as (A1) and (A2 ). Received in formalin labelled Evan, Mi colleen and gastric antrum is a 4.3 x 0.3 x 0.2 cm, clark-pink biopsy. ??The specimen is submitted i ntact as (B1). Received in formalin labelled Evan, Christian and anai dy of stomach are two clark-pink biopsies measuring 0.7 x 0.2 x 0.2 cm and 1.0 x 0.2 x 0.1 cm. ??The specimens are submitted intact as (C1). ??(Deepali Elizondo)/ [facility] End of Report Specimen Anatomical Collection Method Collection Time Receive d Time (Source) Location / / Volume Laterality 11/05/2012 8:42 11/06/2012 8 :42 EDT EDT Christi Nguyen DO PATHOLOGY ORDERABLES Performing Organization Address City/State/ZIP Code Phon e Number [facility] [address] [place] [address] SERVICES [facility] [address] [place] [address] documented in this encounter Visit Diagnoses Not on filedocumented in this encounter Care Teams [employer] Developer Relationship Specialty Start Date End Date Kyleigh Yun MD PCP - General 06/29/11 [address] [place] [address] documented as of this encounter
--- OUTSIDE RECORDS SUMMARY | 2022-05-26 01:43 | XMS_ITS | Encounter Summary ---
:1970 Author Organization [facility] Address [address] [place] [address] Care Team Providers Name Role Phone Nico Conley MD Primary Care Provider Unavailable Encounter Details Date Type Department Care Team Description 07/13/2011 - [facility] KAZ Verdin 07/14/2011 Encounter Cardiothoracic Surgery Conrad Schmitz, ([facility] pra[facility] Unit MD tachycardia) [address] [facility] [address] [facility] [place] [address] [facility] [address] [place] [address] Social History Tobacco Use Types Packs/Day Years Used Date Smoking Tobacco: Never Assessed Cigarettes 1 20 Sex Assigned at Date Recorded Not on file documented as of this encounter Last Filed Vital Signs Vital Sign Reading [...] Body Mass Index 23.11 07/13/2011 1121 EST documented in this encounter Functional Status Cognitive Status Response Date of Assessment Because of a physical, mental, or emotional condition, do Ye s 07/14/2011 you have serious difficulty concentrating, remembering, or making decisions? (5 years old or older) documented as of this encounter Discharge Instructions Brett Newmanm, MD - 07/14/2011 Discharge Instructions for Non Anesthesia Ablation and Electrophysiogy Study (EPS) Patients 1. Wound Care: ?? You may remove the Band-Aids/Dressings from the sites the next morning ?? You may shower the following day. ?? No tub bathing for five days. This includes hot tubs and pools. 2. Call your physician or nurse if: ?? You develop drainage, redness, or swelling at any of the sites ?? You develop a fever ?? You develop increased tenderness and/or increased bruising over sites which doesn't resolve in 2 days ?? You develop a persistent and/or productive cough ?? Your symptoms reoccur 3. Activity: ?? You can resume your normal activities in one week, unless you have been instructed otherwise ?? No vigorous activity for 1 week after your ablation. This includes running, squatting and heavy lifting (>10 lbs). ?? If you are traveling by car or airplane in the next week, you will need to stand and move around every 2 hours to promote circulation ?? You may resume driving after 24 hours. ?? You may return to work after 3 days if your work demands are not physical. 4. Medications: ?? Resume prior medications unless otherwise instructed. ?? Do not resume Diltiazem If you have any questions or concerns, please don't hesitate to call [facility]. You will be called about follow up in 2 weeks. AttachmentsThe following attachments cannot be sent through Care Everywhere. ELECTROPHYSIOLOGY STUDY AND CATHETER ABLATION: WHAT TO EXPECT AT HOME (GABONESE) documented in this encounter Medications at Time of Discharge Medication Sig Dispensed Refills Start Date End Date ibuprofen (MOTRIN) 400 mg Take 800 mg by mouth 0 tablet every 8 hours as needed. documented as of this encounter Discharge Disposition Disposition Code Departure Means Destination Home or Self Care documented in this encounter Progress Notes Conrad Verdin MD - 07/14/2011 0701 EST Cardiology/EP Progress note Admit Date: 07/13/2011 Hospital day: LOS: 1 day Date of Service: 07/14/2011 Code Status: Full Code Chief Complaint: SVT Events/ Procedures in the last 24 hrs: AVNRT ablation yesterday. Subjective: Ms. Gordon had some more CP o/n, similar to her pain during the procedure. EKG was nl. Troponin was slightly elevated as expected. Some groin soreness, no bleeding. No CP/SOB/dizziness/syncope. Doing much better this AM. Ready to go home. Current Facility-Administered Medications Medication Route Frequency ??? acetaminophen (TYLENOL) tablet 650 mg Oral Q4H PRN ??? ibuprofen (MOTRIN) tablet 800 mg Oral TID ??? ondansetron (PF) (ZOFRAN) injection 4 mg Intravenous Q4H PRN ??? sodium chloride 0.9 % (NS) infusion Intravenous CONTINUOUS Facility-Administered Medications Ordered in Other Encounters Medication Route Frequency ??? sodium chloride 0.9 % (NS) infusion Intravenous CONTINUOUS Review of Systems: Pertinent items are noted in Subjective/HPI Objective/Physical Exam: VS: Patient Vitals for the past 8 hrs: BP Pulse Heart Rate Resp Temp SpO2 O2 Device 07/14/11 0646 97/63 mmHg - - 18 - - - 07/14/11 0351 86/56 mmHg - 69 BPM 18 35.8 ??C (96.4 ??F) 99 % Room air 07/13/11 2339 - - 75 BPM 18 36.4 ??C (97.5 ??F) 100 % Room air 07/13/11 2316 86/55 mmHg 80 - - - - - Pain: Patient Vitals for the past 8 hrs: Numeric Pain Level (Scale 1-10) 07/14/11 0700 0 07/14/11 0646 0 07/14/11 0607 0 07/14/11 0529 0 07/14/11 0300 4 07/14/11 0100 8 Weight: No data found. Glucose Readings (last 8 hours): No results found for this basename: GLUCOSEFINGE:8 in the last 72 hours I&O: Intake/Output Summary (Last 24 hours) at 07/14/11 0702 Last data filed at 07/13/11 2248 Gross per 24 hour Intake 576 ml Output 850 ml Net -274 ml Exam: General appearance: alert, cooperative, no distress Skin: Skin color, tempature, turgor normal. No rashes or lesions Head: Normocephalic, without obvious abnormality, atraumatic Eyes: conjunctivae/corneas clear. Lungs: clear to auscultation bilaterally Heart: regular rate and rhythm, S1, S2 normal, no murmur, click, rub or gallop Mental Status: awake and alert; oriented to person, place, and time Extremities: extremities warm, atraumatic, no cyanosis or edema, groins with dry dressings, no swelling, mild tenderness to palpation. Pulses: 2+ and symmetric Is PICC / Central line present?: No, PICC/Central line not present. Lab Review: I have personally reviewed CBC: Lab Results Component Value Date WBC 7.23 07/14/2011 RBC 3.62* 07/14/2011 HGB 11.3* 07/14/2011 HCT 32.8* 07/14/2011 MCV 91 07/14/2011 MCH 31.3 07/14/2011 MCHC 34.5 07/14/2011 PLT 216 07/14/2011 Coagulation: Lab Results Component Value Date PROTIME 9.1* 07/13/2011 INR 0.8* 07/13/2011 PTT 28 07/13/2011 Cardiac markers: Lab Results Component Value Date TROPONINI 0.543* 07/14/2011 No results found for this basename: HGBA1C Telemetry: yes, Normal sinus rhythm Assessment: 40 yo woman with SVT. Had AVNRT ablation yesterday with long procedure duration in the evening with relatively high sedation needs. Therefore had to stay o/n. Post procedure CP, most likely related to ablation emery, not breathing dependent. Troponin elevated as expected. Subsided this morning. Troponin elevated as expected. Doing well, reports that she has BP between 90 and 100 mmHg syst. all the time. Plan: (update problem list daily as appropriate) Patient Active Hospital Problem List: SVT (supraventricular tachycardia) (07/13/2011) Assessment: see above. Plan: D/C today. Stop diltiazem. F/U in clinic in 2 weeks. Discharge Plan: Home or self care today. CONRAD VERDIN MD 07/14/2011 7:02 Adriana Grace - 07/13/2011 0619 EST Admission Note D - This is a(n) 40 y.o. female who is being admitted This is post-op day for the patient. Patient is status-post cards A - Vital signs taken. Patient oriented to unit and room. Call light and bed use reviewed. Call light within reach, bed placed in low position and table at bedside. Room is free of clutter. R - Continue to assess and monitor patient. 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 Left groin site dressing changed by Eren on arrival, not actively bleeding. Right groin CDI.-djp 1835 Pt transferred to [facility] 3.-djp Digna Buchanan RN - 07/13/2011 1149 EST Christian Gordon arrived to CVU via amb. Patient alert and oriented x3. Bed in lowest position with call oliveros within reach. Unit orientation and explanation of IV and procedure completed with patient. Sister in law at bedside. States menses, will remove tampax and put on pad when leaves for procedure. documented in this encounter H&P Notes Warehouse Distribution Specialist, Michel - 07/19/2011 1239 EST documented in this encounter Procedure Notes Conrad Verdin MD - 07/27/2011 1743 ESTProcedure(s): [id number] Pre-Procedure Diagnose(s): SVT (supraventricular tachycardia) (HCC-CMS) (HCC) Post-Procedure Diagnose(s): AVNRT (AV lisa re-entry tachycardia) (HCC-CMS) (HCC) [facility] [place] [facility], [address], [place] [address] EP Study and Ablation for AV Lisa Reentrant Tachycardia EP Study and Ablation for AV Lisa Reentrant Tachycardia Name: Alayna Gordon Rotor Balancer: [facility] Conrad Verdin MD : 1970 DOP: 07/13/2011 Case #: [id number] Referring Physician: Julian Muniz MD Primary Care: Nico Conley MD Indication: SVT. HPI: 40 yo healthy woman with recurrent highly symptomatic SVT. Terminated with Adenosine. Does not tolerate AV node slowing drugs well. Anesthesia: conscious sedation & topical anesthetic Procedure: The patient was brought to the electrophysiology laboratory in the fasting state. After informed consent was obtained, the patient was prepped and draped in the usual sterile fashion. Access was obtained using a modified Seldinger technique. All catheters were placed under fluoroscopic guidance. Pacing and recording were carried out from: the right atrium the left atrium (via CS) the right ventricle His bundle recording Catheters: RAA: #6 Fr hexapolar electrode catheter (2 mm spacing; proximal ring 25 cm from tip) RV/Para-Hisian: #7 Fr deflectable quadrapolar electrode catheter (2mm spacing) His: #7 Fr deflectable octapolar electrode catheter (2 mm spacing) CS: #7 Fr deflectable electrode catheter 20 electrodes (1 mm-3mm-1mm spacing) 3.5 mm.-tip Thermocool Celsius: #7 Fr deflectable quadrapolar electrode (2 mm-5mm-2mm) CS: #7fr deflectable decapolar electrode (2mm-5mm-2mm spacing) Findings: Baseline Rhythm: Sinus Rhythm Cycle length: 800 ms AH interval: 50 ms HV interval: 40 ms At baseline, the patient was in sinus rhythm without evidence of pre-excitation. Pacing from the right atrial appendage demonstrated 1:1 antegrade conduction over the AV node fast pathway to 500 ms, Wenckebach at 490 ms. There was no 1:1 slow pathway conduction at baseline. The antegrade AVN ERP at PCL 600 ms was 510ms for the fast pathway and 460 ms for the slow pathway. No Echoes were noted. Pacing from the right ventricle demonstrated retrograde FP conduction over the AV node fast pathway to 350 ms, block at 340 ms. Para-hisian pacing was consistent with retrograde conduction entirely over the AV node. CS pacing did not reveal any preexcitiation. Isoproterenol infusion was started at 0.5 mcg/min and testing was repeated at steady state. Pacing from the right atrial appendage demonstrated 1:1 antegrade conduction over the AV node fast pathway to470 ms, Wenckebach at 460 ms. Single echoes were noted with burst pacing from the RAA at Wenckebach CL. Isoproterenol infusion was increased to 1 mcg/min and testing was repeated at steady state. Pacing from the right atrial appendage demonstrated 1:1 antegrade conduction over the AV node fast pathway to410 ms, Wenckebach at 400 ms. Burst pacing from the RAA at CL 330 ms induced a regular tachycardia with the following characteristics: - Tachycardia cycle length (TCL): 360 ms - 1:1 A:V association - AH interval: 300 ms - HV interval: 50 ms - VA interval: 10 ms - Earliest atrial activation during tachycardia was in the septum/ FP region - Atrial activation was concentric. - His-synchronous PVCs did not advance the tachycardia. - Earlier PVCs advanced retrograde His activation, then atrial timing with an identical activation sequence. - Retrograde activation was identical during ventricular pacing and SVT. These observations were most consistent with typical (slow-fast) AVNRT. Based on this conclusion we decided to perform a slow pathway ablation. Mapping & Ablation Procedure: Using an SL1 sheath for catheter stability, the ablation catheter was positioned at the tricuspid annulus, near the ostium of the coronary sinus and mapping was performed to guide catheter location. Radiofrequency energy (RF) was applied for a total of 270 s, (power limited to 30 arthur, temperature limited to 42 ?? Celsius) while the catheter was withdrawn from the tricuspid annulus to the ostium of the CS, then withdrawn from the proximal CS towards the CS os. Few junctional extrasystoles were noted during RF application. After the first RF application of 270 ms duration, pacing from the right atrial appendage demonstrated 1:1 antegrade conduction over the AV node to 400 ms. Wenckebach at 390 ms. Burst pacing did not induce SVT. Isoproterenol was infused at 1 mcg/min and testing was repeated. Pacing from the right atrial appendage now demonstrated 1:1 antegrade conduction over the AV node fast pathway to 330 ms, Wenckebach at 320 ms. Burst pacing at Wenckebach CL did not induce tachycardia. Pacing from the right ventricle demonstrated retrograde conduction over the AV node to 400 ms, block at 390 ms. The antegrade AVN ERP atPCL 400 ms was <240 ms, stopped by atrial automaticity. Isoproterenol was increased to 2 mcg/min and testing was repeated. Pacing from the right atrial appendage now demonstrated 1:1 antegrade conduction over the AV node fast pathway to 280 ms, Wenckebach at 270 ms. Burst pacing at Wenckebach CL caused single echoes, but did not induce tachycardia. Isoproterenol was stopped at this point. During subsequent retesting, atrial burst pacing induced regular narrow-complex tachycardia again, with the following characteristics: - Tachycardia cycle length (TCL): 500 ms - 1:1 A:V association - AH interval: 400 ms - HV interval: 45 ms - VA interval: 55 ms - Earlier PVCs delayed atrial timing with an identical activation sequence. The tachycardia was terminated with a PVC, then reinitiated with PACs with characteristics similar to the previous SVT. A second RF pulse was applied to the anterior aspect of the CS with the ablation catheter withdrawn from the proximal CS towards the CS os for a total of 120 s. Subsequent burst pacing from the RAA didnot induce SVT. Pacing from the RV showed VA block at CL as long as 600 ms. Isoproterenol was infused at 0.5 mcg/min and testing was repeated. Pacing from the right atrial appendage now demonstrated 1:1 antegrade conduction over the AV node fast pathway to 440 ms, Wenckebach at 430 ms. Pacing from the right ventricle at CL 500ms induced a few beats of regular narrow-complex tachycardia with a CL of 550ms, possibly slow/slow AVNRT. Later PACs triggered SVT again, now with a tachycardia cycle length of 490 ms. A third RF pulse was applied starting deeper in the proximal CS toward the CS ostium for a total of 98s. Tachycardia terminated during RF application. Pacing from the RV showed VA block again. Isoproterenol was increased to 1 mcg/min and testing was repeated. Pacing from the RV still showed VA block at PCL 490 ms. Isoproterenol was increased to 2 mcg/min and testing was repeated. Burst pacing from the right atrial appendage at PCL 300ms induced SVT again with the following characteristics, still consistent with AVNRT: - Tachycardia cycle length (TCL): 415 ms - 1:1 A:V association - AH interval: 350 ms - HV interval: 50 ms - VA interval: 15 ms - Earliest atrial activation during tachycardia was in the septum/ FP region - Atrial activation was concentric. - Retrograde activation was identical during entrainment from the RV and SVT. SVT terminated with entrainment. Isoproterenol was stopped. RF energy was applied in a fourth pulse to the slow pathway region from the Tricuspid annulus to the CS os and at the lip of the coronary sinus ostium for a total of 122 s. Pacing from the right atrial appendage, there was 1:1 antegrade conduction over the AV node fast pathway to 440 ms, Wenckebach at 430 ms. Pacing from the RV showed VA block again at CL 600 ms. No tachycardia was induced. Isoproterenol infusion was again started at 1 mcg/min and testing was repeated. Pacing from the right atrial appendage demonstrated 1:1 antegrade conduction over the AV node fast pathway to 380 ms, Wenckebach at 370 ms. Pacing from the RV showed VA block again at CL 600 ms. No tachycardia was induced. Isoproterenol infusion was increased to 2 mcg/min and testing was repeated. Pacing from the right atrial appendage demonstrated 1:1 antegrade conduction over the AV node fast pathway to 320 ms, Wenckebach at 310 ms. Pacing from the RV showed 1:1 retrograde conduction to 390ms, block at 380 ms. No tachycardia was induced. Isoproterenol was stopped. The patient was observed for 30 minutes post-RF. No tachycardia could be re- induced. Catheters were withdrawn, sheaths were pulled, and hemostasis was achieved with manual compression. No complications. Total blood loss < 50 mL. Fluoroscopy time 45 min. In view of the prolonged procedure and as thepatient required high doses of Midazolam and Fentanyl, she was admitted for extended recovery/ bedded observation overnight. Summary: 1. Typical slow-fast AV lisa reentrant tachycardia. 2. Slow pathway ablation. 3. No tachycardia inducible after ablation. 4. No complications. 5. The patient was enrolled into the long-term follow-up post ablation study. Attending Physician Conrad Verdin MD cc: MD Nico Huizar MD Warehouse Distribution Specialist, Scan - 07/24/2011 0819 ESTAssociated Order(s): ECG REPORT - SCANNED Warehouse Distribution Specialist, Scan - 07/24/2011 0819 ESTAssociated Order(s): ECG REPORT - SCANNED Warehouse Distribution Specialist, Scan - 07/19/2011 1239 ESTAssociated Order(s): CARDIAC CATHERIZATION REPORT - SCANNED Warehouse Distribution Specialist, Scan - 07/19/2011 1239 ESTAssociated Order(s): ECG REPORT - SCANNED Conrad Verdin MD - 07/13/2011 1752 ESTProcedure(s): [id number] Pre-Procedure Diagnose(s): SVT (supraventricular tachycardia) (HCC-CMS) (HCC) Post-Procedure Diagnose(s): AVNRT (AV lisa re-entry tachycardia) (HCC-CMS) (HCC) Electrophysiology Laboratory Preliminary Report -- Invasive Electrophysiology Procedure Date of Service/Procedure: 07/13/2011 Attending Physician: Conrad Verdin MD Fellow: None Pre-Procedure Diagnosis/Indication: Christian Gordon is a 40 y.o. year old female Presents to [facility] on [address] [place] [address] for Electrophysiological study which isIndicated for supraventricular tachycardia based on findings of EP study an ablation was indicated for AVNRT. Anesthesia: A moderate level of anesthesia/conscious sedation was used., Local anesthesia was used.. Access: Right femoral vein 1 x 7.0 fr and 8.5 fr Left femoral vein 3 x 7.0 fr Post-Procedure Condition: The condition of the patient was Good. Complications: none. Estimated Blood Loss: Minimal. Unless otherwise noted, there were no specimens removed, cultures obtained, or drains retained. Clinical Trial: The patient is enrolled in a clinical trial (Trial Name: Usp Follow-up post ablation. ). The trial does not involve an investigational device exemption. Summary of Procedure: Successful slow pathway ablation for AVNRT. Post-Procedure Diagnosis: AVNRT Plan: see post-procedure orders, bedrest for 3 hour(s) and admission to telemetry for extended recovery (long procedure duration, high amount of Midazolam and Fentanyl) . At the completion of the procedure, the attending physician has explained the findings, therapies, any complications and treatment plan to the patient. With the patients consent, all family members andpatient support persons who were present at the conclusion of the procedure have been notified of these results and treatment plans as well. Post Procedural Disposition: Bedded outpatient status is indicated. Reference: Hospitalization Criteria for Pacemaker and ICD Placement and EP/Ablation; Heart Rhythm Society; Revised December, CONRAD VERDIN MD 07/13/2011 17:52 documented in this encounter Miscellaneous Notes Scanned Note-Null - Warehouse Distribution Specialist, Scan - 07/19/2011 1239 EST Scanned Note-Null - Warehouse Distribution Specialist, Scan - 07/19/2011 1239 EST Scanned Note-Null - Warehouse Distribution Specialist, Scan - 07/19/2011 1239 EST Scanned Note-Null - Warehouse Distribution Specialist, Scan - 07/17/2011 0840 EST Plan of Care - Cristal Andrews RN - 07/14/2011 0851 EST Problem: DISCHARGE PLANNING Goal: Patient???s Continuum Of Care Needs Are Met Discharge Note D - Patient ordered for discharge today. A - Patient given After Visit Summary. Medication list, follow up appointments and care instructionsreviewed with patient. IVs and ID band removed. R - Patient questions reviewed and addressed prior to discharge. Patient complained of 0/10 pain, but requested Tylenol and Motrin to keep the pain under control. Patient left the unit in a wheelchair in stable condition. No distress noted. 07/14/2011 8:44 CRISTAL ANDREWS RN Plan of Care - Say Tejada RN - 07/14/2011 0410 EST Problem: PAIN Goal: Patient???s Pain And Discomfort Are Adequately Managed Active Multi-Disciplinary problems: HOSPITAL ORIENTATION/SAFETY [726689] (07/14/11) PSYCHOSOCIAL [386409] (07/14/11) PAIN [131780] (07/14/11) CIRCULATORY STATUS [027258] (07/14/11) Data: Pt reports 8/10 chest pain my heart hurts. No SOB, no vomiting, pain does not radiate down arm, pt states this type of pain has been present since alblation. Pt was given Lortab earlier which was not effective, only made pt nauseas. Pt brought from OSH with SVT and had alblation. Bilat groin sites old/scant drainage at steri strips. BP 86/55. Pt in NSR 70's. Action: Dr. Wang to bedside. Stat 12 lead orders (12 lead negative). Zofran 4 mg ordered. 1000 mL NS bolus ordered. Labs ordered. Tylenol ordered for pain. (note pt allergies in hx). Pt also had great difficulty sleeping, Ambien orders received. Response: Pt pain level decreased to 3/10. Troponin I 0.543 and MB 6.54, suspected inflammation as 12 lead negative. aware and following case closely. SAY TEJADA RN 07/14/2011 3:40 Scanned Note-Null - Warehouse Distribution Specialist, Scan - 07/13/2011 1102 EST Scanned Note-Null - Warehouse Distribution Specialist, Scan - 07/13/2011 1102 EST documented in this encounter Plan of Treatment Not on filedocumented as of this encounter Procedures Procedure Name Priority Date/Time Associated Comments Diagnosis ECG REPORT - SCANNED 07/24/2011 8:19 Resu lts for this EST procedure are i n the results section. ECG REPORT - SCANNED 07/24/2011 8:19 Resu lts for this EST procedure are i n the results section. ECG REPORT - SCANNED 07/19/2011 12:39 Res ults for this EST procedure are i n the results section. INVASIVE CARDIOLOGY 07/19/2011 12:39 Resu lts for this REPORT-SCANNED EST procedure are in the results section. EKG 12-LEAD STAT 07/14/2011 0:31 EST TROPONIN I STAT 07/14/2011 0:01 Results for this EST procedure are i n the results section. COMPLETE BLOOD COUNT STAT 07/14/2011 0:01 Resu lts for this EST procedure are i n the results section. BUN Routine 07/14/2011 0:01 Results for this EST procedure are i n the results section. CREATININE Routine 07/14/2011 0:01 Results for this EST procedure are i n the results section. CK MB WITH TOTAL CK Routine 07/14/2011 0:01 Resul ts for this EST procedure are i n the results section. ELECTROLYTES STAT 07/14/2011 0:01 Results for this EST procedure are i n the results section. EKG 12-LEAD Routine 07/13/2011 17:54 EST PTT STAT 07/13/2011 11:27 Results for this EST procedure are i n the results section. PROTIME STAT 07/13/2011 11:27 Results for this EST procedure are i n the results section. COMPLETE BLOOD COUNT STAT 07/13/2011 11:27 Res ults for this EST procedure are i n the results section. QUANT BETA HCG, STAT 07/13/2011 11:27 Results for this EST procedure are i n the results section. BUN STAT 07/13/2011 11:27 Results for this EST procedure are i n the results section. CREATININE STAT 07/13/2011 11:27 Results for this EST procedure are i n the results section. ELECTROLYTES STAT 07/13/2011 11:27 Results for this EST procedure are i n the results section. documented in this encounter Results ECG REPORT - SCANNED (07/24/2011 8:19 EST) Specimen (Source) Anatomical Collection Method Collection Time Re ceived Time Location / / Volume Laterality 07/24/2011 8:19 EST Narrative This result has an attachment that is no t available. Transcriptions Warehouse Distribution Specialist, Scan - 07/24/2011 8:19 ES T Scan Warehouse Distribution Specialist PROCEDURE/MINOR SURGICAL ORD ERABLES ECG REPORT - SCANNED (07/24/2011 8:19 EST) Specimen (Source) Anatomical Collection Method Collection Time Re ceived Time Location / / Volume Laterality 07/24/2011 8:19 EST Narrative This result has an attachment that is no t available. [employer]criptions Warehouse Distribution Specialist, Scan - 07/24/2011 8:19 ES T Scan [employer]house Distribution Specialist PROCEDURE/MINOR SURGICAL ORD ERABLES ECG REPORT - SCANNED (07/19/2011 12:39 EST) Specimen (Source) Anatomical Collection Method Collection Time Re ceived Time Location / / Volume Laterality 07/19/2011 12:39 EST Narrative This result has an attachment that is no t available. [employer]criptions Warehouse Distribution Specialist, Scan - 07/19/2011 12:[address] Scan [employer]house Distribution Specialist PROCEDURE/MINOR SURGICAL ORD ERABLES CARDIAC CATHERIZATION REPORT - SCANNED (07/19/2011 12:39 EST) Specimen (Source) Anatomical Collection Method Collection Time Re ceived Time Location / / Volume Laterality 07/19/2011 12:39 EST Narrative This result has an attachment that is no t available. [employer] Warehouse Distribution Specialist, Scan - 07/19/2011 12:[address] Scan [employer] Specialist PROCEDURE/MINOR SURGICAL ORD ERABLES (ABNORMAL) CREATININE (07/14/2011 0:01 EST) Analysis Performed At Patho logist Time Signature Creatinine 0.60 (L) 0.7 - 1.5 [facility] mg/dl [facility] GFR, Calculated >60 >60 [facility] ml/min/1.7 [facility] 3m2 Specimen Anatomical Collection Method Collection Time Receive d Time (Source) Location / / Volume Laterality 07/14/2011 0:01 07/14/2011 0 :12 EST EST Le Wang MD CHEMISTRY & BLOOD GAS ORDERA BLES Performing Organization Address City/State/ZIP Code Phon e Number [facility] [address] [place] [address] SERVICES [facility] [address] [place] [address] BUN (07/14/2011 0:01 EST) athologist Signature BUN 11 10 - 26 [facility] mg/dl LAB Specimen Anatomical Collection Method Collection Time Receive d Time (Source) Location / / Volume Laterality 07/14/2011 0:01 07/14/2011 0 :12 EST EST Le Wang MD CHEMISTRY & BLOOD GAS ORDERA BLES Performing Organization Address City/[facility]/ZIP Code Phon e Number [facility] [address] [place] [address] SERVICES [facility] [address] [place] [address] (ABNORMAL) HEMAGRAM (07/14/2011 0:01 EST) athologist Signature WBC 7.23 4.0 - 12.4 [facility] K/cmm LAB RBC 3.62 (L) 3.86 - 5.04 [facility] M/cmm LAB Hemoglobin 11.3 (L) 11.6 - 15.2 [facility] gm/dl LAB HCT 32.8 (L) 34.9 - 44.4 [facility] % LAB MCV 91 81 - 98 fl [facility] MCH 31.3 26.7 - 33.3 [facility] pg LAB MCHC 34.5 32.1 - 35.9 [facility] gm/dl LAB PLT 216 141 - 320 [facility] K/cmm LAB RDW-CV 12.8 11.7 - 14.6 [facility] % LAB Specimen Anatomical Collection Method Collection Time Receive d Time (Source) Location / / Volume Laterality Blood specimen 07/14/2011 0:01 07/14/2011 0:12 (specimen) EST EST Le Wang MD HEMATOLOGY & PF4 ORDERABLES Performing Organization Address City/[facility]/ZIP Code Phon e Number [facility] [address] [place] [address] SERVICES [facility] [address] [place] [address] ELECTROLYTES (07/14/2011 0:01 EST) P athologist Signature Sodium 136 136 - 145 [facility] mEq/L LAB Potassium 3.5 3.5 - 5.0 [facility] mEq/L LAB Chloride 107 96 - 110 [facility] mEq/L LAB CO2 24 24 - 32 [facility] mEq/L LAB Specimen Anatomical Collection Method Collection Time Receive d Time (Source) Location / / Volume Laterality Blood specimen 07/14/2011 0:01 07/14/2011 0:12 (specimen) EST EST Le Wang MD CHEMISTRY & BLOOD GAS ORDERA BLES Performing Organization Address City/[facility]/ZIP Code Phon e Number [facility] [address] [place] [address] SERVICES [facility] [address] [place] [address] (ABNORMAL) TROPONIN I (07/14/2011 0:01 EST) Analysis Performed At Patho logist Time Signature Troponin I 0.543 (H) <0.034 [facility] (ng/mL) ng/ml [facility] Comment: Note new reference range. Note new assay 05/16/11 Specimen Anatomical Collection Method Collection Time Receive d Time (Source) Location / / Volume Laterality Blood specimen 07/14/2011 0:01 07/14/2011 0:12 (specimen) EST EST Le Wang MD CHEMISTRY & BLOOD GAS ORDERA BLES Performing Organization Address City/[facility]/ZIP Code Phon e Number [facility] [address] [place] [address] SERVICES [facility] [address] [place] [address] (ABNORMAL) CK MB WITH TOTAL CK (07/14/2011 0:01 EST) P athologist Signature CK 122 30 - 135 [facility] U/L LAB MB 6.54 (H) <2.95 ng/ml [facility] Comment: Note new reference range. Note new assay 05/16/11 Specimen Anatomical Collection Method Collection Time Receive d Time (Source) Location / / Volume Laterality Blood specimen 07/14/2011 0:01 07/14/2011 0:12 (specimen) EST EST Le Wang MD CHEMISTRY & BLOOD GAS ORDERA BLES Performing Organization Address City/[facility]/ZIP Code Phon e Number [facility] [address] [place] [address] SERVICES [facility] [address] [place] [address] HEMAGRAM (07/13/2011 11:27 EST) athologist Signature WBC 5.80 4.0 - 12.4 [facility] K/cmm LAB RBC 4.30 3.86 - 5.04 [facility] M/cmm LAB Hemoglobin 13.5 11.6 - 15.2 [facility] gm/dl LAB HCT 39.0 34.9 - 44.4 [facility] % LAB MCV 91 81 - 98 fl [facility] LAB MCH 31.4 26.7 - 33.3 [facility] pg LAB MCHC 34.6 32.1 - 35.9 [facility] gm/dl LAB PLT 288 141 - 320 [facility] K/cmm LAB RDW-CV 12.5 11.7 - 14.6 [facility] % LAB Specimen Anatomical Collection Method Collection Time Receive d Time (Source) Location / / Volume Laterality Blood specimen 07/13/2011 11:27 2 (specimen) EST 11:38 EST Conrad Verdin MD HEMATOLOGY & PF4 ORDERABLES Performing Organization Address City/[facility]/ZIP Code Phon e Number [facility] [address] [place] [address] SERVICES [facility] [address] [place] [id number] HCG (07/13/2011 11:27 EST) athologist Signature Quant Beta HCG, <5 <5 mIU/ml [facility] Preg LAB Comment: Reference Range: Negative = <5 Indeterminate = 5-25 recommend repeat in 48 hours. Positive = >25 Note new reference range. Note new assay 05/16/11 Specimen Anatomical Collection Method Collection Time Receive d Time (Source) Location / / Volume Laterality Blood specimen 07/13/2011 11:27 2 (specimen) EST 11:38 EST Conrad Verdin MD CHEMISTRY & BLOOD GAS ORDERA BLES Performing Organization Address City/[facility]/ZIP Code Phon e Number [facility] [address] [place] [address] SERVICES [facility] [address] [place] [address] [place] [address] PTT (07/13/2011 11:27 EST) athologist Signature PTT 28 24 - 35 [facility] secs LAB Comment: Therapeutic Heparin range: 60-9 0 seconds Specimen Anatomical Collection Method Collection Time Receive d Time (Source) Location / / Volume Laterality Blood specimen 07/13/2011 11:27 2 (specimen) EST 11:38 EST Conrad Verdin MD HEMATOLOGY & PF4 ORDERABLES Performing Organization Address City/[facility]/ZIP [facility] Phon e Number [facility] [address] [place] [address] SERVICES [facility] [address] [place] [address] (ABNORMAL) PROTIME (07/13/2011 11:27 EST) athologist Signature Pro Time 9.1 (L) 9.5 - 13.1 [facility] secs LAB I.N.R. 0.8 (L) 0.9 - 1.1 [facility] Ratio LAB Comment: Moderate Intensity Coumadin INR = 2.0-3. 0 Adjustments in anticoagulant therapy dos e should be based upon the INR and NOT the Pro Ti me. Specimen Anatomical Collection Method Collection Time Receive d Time (Source) Location / / Volume Laterality Blood specimen 07/13/2011 11:27 2 (specimen) EST 11:38 EST Conrad Verdin MD HEMATOLOGY & PF4 ORDERABLES Performing Organization Address City/[facility]/ZIP Code Phon e Number [facility] [address] [place] [address] SERVICES [facility] [address] [place] [address] CREATININE (07/13/2011 11:27 EST) athologist Signature Creatinine 0.70 0.7 - 1.5 [facility] mg/dl LAB GFR, Calculated >60 >60 [facility] ml/min/1.7 LAB 3m2 Specimen Anatomical Collection Method Collection Time Receive d Time (Source) Location / / Volume Laterality Blood specimen 07/13/2011 11:27 2 (specimen) EST 11:38 EST Conrad Verdin MD CHEMISTRY & BLOOD GAS ORDERA BLES Performing Organization Address City/State/ZIP Code Phon e Number [facility] [address] [place] [address] SERVICES [facility] [address] [place] [address] BUN (07/13/2011 11:27 EST) athologist Signature BUN 13 10 - 26 [facility] mg/dl LAB Specimen Anatomical Collection Method Collection Time Receive d Time (Source) Location / / Volume Laterality Blood specimen 07/13/2011 11:27 2 (specimen) EST 11:38 EST Conrad Verdin MD CHEMISTRY & BLOOD GAS ORDERA BLES Performing Organization Address City/[facility]/ZIP Code Phon e Number [facility] [address] [place] [address] SERVICES [facility] [address] [place] [address] ELECTROLYTES (07/13/2011 11:27 EST) P athologist Signature Sodium 140 136 - 145 [facility] mEq/L LAB Potassium 4.5 3.5 - 5.0 [facility] mEq/L LAB Chloride 105 96 - 110 [facility] mEq/L LAB CO2 25 24 - 32 [facility] mEq/L LAB Specimen Anatomical Collection Method Collection Time Receive d Time (Source) Location / / Volume Laterality Blood specimen 07/13/2011 11:27 2 (specimen) EST 11:38 EST Conrad Verdin MD CHEMISTRY & BLOOD GAS ORDERA BLES Performing Organization Address City/[facility]/ZIP Code Phon e Number [facility] [address] [place] [address] SERVICES [facility] [address] [place] [address] documented in this encounter Visit Diagnoses Diagnosis SVT (supraventricular tachycardia) (HCC- CMS) (HCC) Other specified cardiac dysrhythmias documented in this encounter Administered Medications Inactive Administered Medications - up to 3 most recent administrations Medication Order MAR Action Action Date Dose Rate Site acetaminophen (TYLENOL) tablet 650 mg Given 07/14/2011 2:06 EST 650 mg 650 mg, oral, NOW X1, 1 dose, On Sun07/14/11 at 0200, Routine acetaminophen (TYLENOL) tablet 650 mg Given 07/14/2011 8:06 EST 650 mg 650 mg, oral, EVERY 4 HOURS PRN, Starting on Sun07/14/11 at 0139, Until Sun07/14/11 at 1104, Pain, Routine hydrocodone-acetaminophen (LORTAB) 10-500 mg Given 11/2011 19:46 EST 1 Tablet per tablet 1 Tab 1 Tablet, oral, EVERY 6 HOURS PRN, Starting on Natasha 07/13/11 at 1806, Until Natasha 07/13/11 at 2341, Pain, Routine ibuprofen (MOTRIN) 800 mg tablet 1 dose, Starting on Natasha 07/13/11 at 1805, Until Natasha at 1805 ibuprofen (MOTRIN) tablet 800 mg Given 07/14/2011 2:06 EST 800 mg 800 mg, oral, EVERY 8 HOURS PRN, Starting on Natasha 07/13/11 at 1756, Until Sun07/14/11 at 0403, Pain, Routine Given 07/13/2011 18:05 EST 800 mg ibuprofen (MOTRIN) tablet 800 mg Given 07/14/2011 8:05 EST 800 mg 800 mg, oral, 3 TIMES DAILY, First dose (after last modification) on Sun07/14/11 at 0900, Until Discontinued, Routine ondansetron (PF) (ZOFRAN) injection 4 mg Given 07/14/2011 1:00 EST 4 mg 4 mg, intravenous, EVERY 4 HOURS PRN, Starting on Natasha 07/13/11 at 2342, Until Sun07/14/11 at 1104, Nausea, Routine sodium chloride 0.9 % (NS) infusion New Bag 07/13/2011 11:32 EST 30 mL/hr 30 mL/hr 30 mL/hr, intravenous, CONTINUOUS, Starting on Natasha 07/13/11 at 1145, Until Natasha 07/13/11 at 1838, Routine, Preprocedure sodium chloride 0.9 % (NS) infusion New Bag 07/14/2011 1:00 EST 1,000 mL 100 mL/hr at 100 mL/hr, 1,000 mL, intravenous, CONTINUOUS, Starting on Sun07/14/11 at 0015, Until Sun07/14/11 at 1104, Routine zolpidem (AMBIEN) tablet 5 mg Given 07/14/2011 2:06 EST 5 mg 5 mg, oral, NOW X1, 1 dose, On Sun07/14/11 at 0200, Routine documented in this encounter Discontinued Medications Medication Sig Discontinue Reason Start Date End Date DILTiazem (TIAZAC) 180 mg Take 180 mg by 07/13/2011 SR capsule mouth daily. documented as of this encounter Historical Medications This list may reflect changes made after this encounter. Medication Sig Dispensed Refills Start Date End Date ibuprofen (MOTRIN) 400 mg Take 800 mg by mouth 0 tablet every 8 hours as needed. DILTiazem (TIAZAC) 180 mg Take 180 mg by mouth 0 07/13/2011 SR capsule daily. added in this encounter Active and Recently Administered Medications Times are shown in EST. Scheduled Medication Order 07/12/2011 07/13/2011 07/14/2011 acetaminophen (TYLENOL) tablet 650 mg (COMPLETED) 0206 (Given - Provider: Say Tejada RN) 650 mg, Oral, NOW X1, 1 dose, Sun07/14/11 at 0200 ibuprofen (MOTRIN) tablet 800 mg (CANCELED) 0805 (Given - Provider: Cristal Andrews RN) 800 mg, Oral, 3 TIMES DAILY, First dose on Sun07/14/11 at 0900, Until Discontinued zolpidem (AMBIEN) tablet 5 mg (COMPLETED) 0206 (Given - Provider: Say Tejada RN) 5 mg, Oral, NOW X1, 1 dose, Sun07/14/11 at 0200 Continuous Medication Order 07/12/2011 07/13/2011 07/14/2011 sodium chloride 0.9 % (NS) infusion (CANCELED) 1132 (New Bag - Provider: Digna Buchanan RN)1844 (Completed - Provider: Adriana Grace) at 30 mL/hr, Intravenous, CONTINUOUS, St arting Natasha 07/13/11 at 1145, Until Natasha 07/13/11 at 1838 sodium chloride 0.9 % (NS) infusion (CANCELED) 0100 (New Bag - Provider: Say Tejada RN)0840 (Completed - Provider: Cristal Andrews RN) at 100 mL/hr, Intravenous, CONTINUOUS, S tarting 07/14/11 at 0015, Until Sun07/14/11 at 1104 PRN Medication Order 07/12/2011 07/13/2011 07/14/2011 acetaminophen (TYLENOL) tablet 650 mg (CANCELED) 0806 (Given - Provider: Cristal Andrews, PEPE) 650 mg, Oral, EVERY 4 HOURS PRN, Startin g 07/14/11 at 0139, Until 07/14/11 at 1104, Pain hydrocodone-acetaminophen (LORTAB) 10-500 mg per tablet 1 Ta b (CANCELED) 1946 (Given - Provider: Say Tejada, PEPE) 1 Tab, Oral, EVERY 6 HOURS PRN, Starting Natasha 07/13/11 at 1806, Until Natasha 07/13/11 at 2341, Pain ibuprofen (MOTRIN) tablet 800 mg (CANCELED) 1805 (Given - Provider: Rosanna Newman RN) 0206 (Given - Provider: Say Tejada, PEPE) 800 mg, Oral, EVERY 8 HOURS PRN, Startin g Natasha 07/13/11 at 1756, Until 07/14/11 at 0403, Pain ondansetron (PF) (ZOFRAN) injection 4 mg (CANCELED) 0100 (Given - Provider: Say Tejada, PEPE) 4 mg, Intravenous, EVERY 4 [address]RS PRN, St arting Natasha 07/13/11 at 2342, Until 07/14/11 at 1104, Nausea documented in this encounter Orders Medications Ordered That Might Not Have Count Last Ord ered Date First Ordered Date Been Administered fentanyl citrate (PF) 50 mcg/mL injection 4 2011 isoproterenol (ISUPREL) 0.2 mg/mL 1 07/13/2011 injection lidocaine 10 mg/mL (1 %) injection 2 07/13/2011 midazolam (VERSED) 1 mg/mL injection 5 07/13/2011 EKG Orders Without Results Count Last Ordered Date Fir st Ordered Date EKG 12-LEAD 2 07/14/2011 07/13/2011 IV Count Last Ordered Date First Ordered Date IV REQUEST 1 07/14/2011 Admission Count Last Ordered Date First Ordered Date NOTIFY PPS OF DISCHARGE COMPLETE 07/14/2011 ADMIT TO OUTPATIENT 2 07/13/2011 PPS NOTIFICATION OF PATIENT ARRIVAL ON 2 UNIT Discharge Count Last Ordered Date First Ordered Date DISCHARGE PATIENT 1 07/14/2011 documented in this encounter Care Teams Interlibrary Loan Services Librarian Relationship Specialty Start Date End Date Nico Conley MD PCP - General 06/29/[address] [place] [address] documented as of this encounter
--- OUTSIDE RECORDS SUMMARY | 2022-05-26 01:43 | XMS_ITS | Encounter Summary ---
:1970 Author Organization [facility] Address [address] [place] [address] Care Team Providers Name Role Phone Unavailable Primary Care Provider Unavailable Encounter Details Date Type Department Care Team Description 08/20/[address] [facility] Jesica Deutsch CNM [facility] [address] [place] [id number] Social History Tobacco Use Types Packs/Day Years Used Date Smoking Tobacco: Never Assessed Sex Assigned at Date Recorded Not on file documented as of this encounter Plan of Treatment Not on filedocumented as of this encounter Procedures Procedure Name Priority Date/Time Associated Diagnosis Comme nts CYTOPATHOLOGY Routine 08/20/2003 0:00 EST Results for this procedure are i n the results section . documented in this encounter Results CYTOPATHOLOGY (08/20/2003 0:00 EST) Component Value Ref Test Analysis Performed At [facility] Method Time Signature Pathology CYTOPATHOLOGY REPORT [facility] Report: [facility] Reports generated via electronic interface contain original data; however they are lacking the format of the original report. Caution should be taken when reading/interpreting unformatte d reports. Name: ? MILAGRO GORDON ? Accession #: ? [id number] : ? 1970 (Age: 33) ??F ?Collect Date: ? 08/20/2003 Location: ? [facility] ? Receive Date: ? 08/21/2003 Provider: ?JESICA VALDOVINOS CNM Copy to: ? Specimen/Source: ?ThinPrep Pap Test, Cervix/Endoce rvix Last Menstrual Period: ? 06/10/03 Menstrual/ Status: ? SPECIMEN ADEQUACY ? Satisfactory for Evaluation - transformation zone component present GENERAL CATEGORIZATION ? Negative for Intraepithelial Lesion or Malignancy INTERPRETATION ? Shift in mary present suggestive of bacterial vagino sis. ? Document reviewed and electronically signed by: ? Miguel Irizarry, BETTY(ASCP) ? Report Date: ??08/24/2003 13:28 End of Report Specimen (Source) Anatomical Location Collection Method / Collectio n Time Received Time / Laterality Volume 08/20/2003 08/21/2003 Jesica Valdovinos CNM PATHOLOGY ORDERABLES Performing Organization Address City/State/ZIP Code Phon e Number [facility] [address] [place] [address] SERVICES [facility] [address] [place] [address] documented in this encounter Visit Diagnoses Not on filedocumented in this encounter
--- OUTSIDE RECORDS SUMMARY | 2022-05-26 01:43 | XMS_ITS | Encounter Summary ---
:1970 Author Organization [facility] Address [facility] [place] [address] Care Team Providers Name Role Phone Nico Conley MD Primary Care Provider Encounter Details Date Type Department Care Team Description 10/31/2018 Orders Only Gastroenterology at [facility] Ijeoma Garcia Exposure to [facility] Edwin [place] [address] [place] [address] [place] [address] Social History Tobacco Use Types Packs/Day Years Used Date Smoking Tobacco: Never Assessed Sex Assigned at Date Recorded Not on file documented as of this encounter Plan of Treatment Not on filedocumented as of this encounter Results Hepatitis C Antibody (10/31/2018 9:53 AM EDT) Analysis Performed At Patho logist Time Signature Hepatitis C Ab Negative Negative [facility] Specimen Anatomical Collection Method Collection Time Receive d Time (Source) Location / / Volume Laterality Blood specimen 10/31/2018 9:53 AM 019 (specimen) EDT 10:01 AM EDT Resulting Agency Comment Spec In Lab Ijeoma Garcia APRN IMMUNOLOGY ORDERABLES Performing Organization Address City/State/[place] [address] documented in this encounter Visit Diagnoses Diagnosis Exposure to hepatitis C Contact with or exposure to other viral diseases documented in this encounter Care Teams District Or District Office Director Relationship Specialty Start Date End Date Nico Conley MD PCP - General Family Medicine 10/31/[address] [place] [address] documented as of this encounter
--- OUTSIDE RECORDS SUMMARY | 2022-05-26 01:43 | XMS_ITS | Encounter Summary ---
:1970 Author Organization [facility] [place] [address] Care Team Providers Name Role Phone Nico Conley MD Primary Care Provider Reason for Visit Reason Comments Skin Lesion painful Consultation (Routine) - Closed Specialty Diagnoses / Procedures Referred By Contact Refer red To Contact Dermatology Diagnoses Disorder of the skin and subcutaneous tissue, unspecified Growth to LT Garcia; New Patient-Notes Received Manuel Lombardo, Juliana Bustamante MD Procedures Consult [address] [place]MATOLOGY [place], [place] [address] [address] [place] [address] Fax: Referral ID Status Reason Start Date Expiration Date Visits V isits Requested Authorized [id number] Closed Consult, Test 09/23/2020 09/23/2021 1 1 & Treat PCP Updated and/or Approved Encounter Details Date Type Department Care Team Description 01/05/2021 Office Visit Dermatology at Juliana Lafleur Neoplasm of uncertain Jennifer Sanchez MD behavior [address] [place] [phone] Social History Tobacco Use Types Packs/Day Years Used Date Smoking Tobacco: Smoker, Current Status Unknown Smokeless Tobacco: Never Snuff Sex Assigned at Date Recorded Not on file documented as of this encounter Progress Notes Juliana Lafleur MD - 01/05/2021 1:20 PM EDT Images from the original note were not included. DEPARTMENT OF DERMATOLOGY [facility] Provider: Juliana Lafleur MD Patient's preferred name Christian PAST MEDICAL HISTORY If no, type N. If yes, type date, location, treatment Melanoma n Dysplastic nevi n SCC n BCC n AKs n UV Exposure & Protection Sun Protection: no hats or sunscreen Other relevant past medical history (i.e. eczema, psoriasis, birthmarks, immunosuppression) n FAMILY HISTORY If yes, details Melanoma n NMSC n Other relevant family history n SOCIAL HISTORY Occupation: [employer] Hobbies: farming Other: n/a History of Present Illness: Christian Gordon is a 50 y.o. year old. Patient is referred to the clinicat the request of Manuel Lombardo for left garcia lesion. Bump that developed 3 years ago. Increased in size in last few months. Tender when touching it. Shaved it by mistake and occasionally bled for along time. Review of Systems: General: Feeling well. Skin: No other skin concerns. Medications: Reviewed in eD-H Allergies: Reviewed in eD-H Skin Examination: Focused skin examination of the legs was normal with the exception of the findings below Assessment/Plan 1. Neoplasm uncertain behavior -1.0 x 0.8 cm purple firm nodule on left garcia Rule out dermatofibroma vs other BIOPSY PROCEDURE NOTE LOCATION: left garcia Verbal consent was given by patient to obtain and chart photographs into EDH if applicable. Verbal consent obtained to perform a diagnostic skin biopsy after risks and benefits of the procedure were reviewed with the patient including but not limited to bleeding, infection, scar, cosmetic defect, recurrence, damage to underlying structures and failure to diagnose. SHAVE BIOPSY After swabbing the area with isopropyl alcohol, the area was anesthetized with Lidocaine with 1:100,000 epinephrine and a biopsy was taken. Hemostasis obtained and the wound was dressed with Vaseline and a dressing. There were no complications. The patient tolerated the procedure well. Post-procedure e xpectations, wound care and activity restrictions were reviewed. The patient was told to expect results by the end of 2 weeks, and to call if they have not received the results by that time. Photo was taken and charted with patient's verbal consent. Garcia RTC: Pending path Juliana Lafleur MD Dermatology [facility] documented in this encounter Plan of Treatment Not on filedocumented as of this encounter Procedures Procedure Name Priority Date/Time Associated Diagnosis Comme nts SPECIMEN TO Routine 01/05/2021 1:57 PM Neoplasm of Results f or this PATHOLOGY EDT uncertain behavior procedure are in the results section. documented in this encounter Results Specimen to Pathology (01/05/2021 1:57 PM EDT) Specimen Anatomical Collection Method Collection Time Receive d Time (Source) Location / / Volume Laterality AP Specimen 01/05/2021 1:57 PM 1:57 EDT PM [address] [facility] - 01/05/2021 1:57 PM EDT Specimen requisition ordered. ??Separate Pathology report to follow Juliana Lafleur MD PATHOLOGY/CYTOLOGY ORDERABLE S Performing Organization Address City/State/[place] [address] documented in this encounter Visit Diagnoses Diagnosis Neoplasm of uncertain behavior Neoplasm of uncertain behavior, site uns pecified documented in this encounter Care Teams Curriculum Designer Relationship Specialty Start Date End Date Nico Conley MD PCP - General Family Medicine 10/31/[address] [place] [address] documented as of this encounter
--- OUTSIDE RECORDS SUMMARY | 2022-05-26 01:43 | XMS_ITS | Encounter Summary ---
:1970 Author Organization [facility] Address [address] [place] [address] Care Team Providers Name Role Phone Unavailable Primary Care Provider Unavailable Encounter Details Date Type Department Care Team Description 11/04/1999 Results Only [facility] - Marilia Nguyen, Chr istopher, conversion DO [address] [facility] [address] [address] [place], [place] [id number] [place] [id number] (Wo rk) Social History Tobacco Use Types Packs/Day Years Used Date Smoking Tobacco: Never Assessed Sex Assigned at Date Recorded Not on file documented as of this encounter Plan of Treatment Not on filedocumented as of this encounter Procedures Procedure Name Priority Date/Time Associated Diagnosis Comme [facility] SURGICAL PATHOLOGY Routine 11/04/1999 15:18 Resul ts for this EDT procedure are i n the results section. documented in this encounter Results SURGICAL PATHOLOGY (11/04/1999 15:18 EDT) Component Value Ref Test Analysis Performed At [facility] Method [place] Signature Pathology SURGICAL PATHOLOGY REPORT GAUDENCIO SÁNCHEZ Report: Reports generated via electronic interface contain tarana l data; FRAN COLLINS however they are lacking the format of the original report. Caution should be taken when reading/interpreting unformatte d reports. Name: ? MILAGRO GORDON ? Accession #: ? [id number] ? : ? 1970 (Age: 29) ??F ? Collect Date: ? 11/04/1999 ? Location: ?Receive Date: ? 11/04/1999 ? Provider: CHRISTI NGUYEN DO Copy to: BRUNO GODFREY MD ? Final Pathologic Diagnosis: MICROSCOPIC DIAGNOSIS: ? Colon, descending, biopsy: ? - Rare eosinophil in crypt, of uncertain significance . ? - Otherwise, no pathologic features. ? Document reviewed and electronically signed by: Conversion for GORGE SALDAÑA Report ??Date: 11/08/1999 00:00 By the signature above, the attending physician certifies th at he/she has personally conducted a gross and/or microscopic examin ation of the described specimens and rendered or confirmed the above diagnosis. Specimen(s) Received: TISSUE SUBMITTED: ? Random sample - descending colon CLINICAL DATA: ? Chronic diarrhea x4 months; RUQ pain Gross Description: GROSS: ? Received in Hollande's fixative labelled Krystian and random ? sample - descending colon bx are three clark-soler irre gular soft ? tissues ranging from 0.2 x 0.2 x 0.2 cm to 0.7 x 0.2 x 0.1 cm. ? The specimens are entirely submitted in one cassette. ??(M. ? Bailey-PL)/ljn End of Report Specimen Anatomical Collection Method Collection Time Receive d Time (Source) Location / / Volume Laterality 11/04/1999 15:18 11/04/1999 EDT 15:19 EDT Christi Nguyen DO PATHOLOGY ORDERABLES Performing Organization Address City/State/ZIP Code Phon e Number [facility] [address] [place] [address] SERVICES [facility] [address] [place] [address] documented in this encounter Visit Diagnoses Not on filedocumented in this encounter
--- OUTSIDE RECORDS SUMMARY | 2022-05-26 01:43 | XMS_ITS | Encounter Summary ---
:1970 Author Organization [facility] Address [address] [place] [address] Care Team Providers Name Role Phone Nico Conley MD Primary Care Provider Unavailable Encounter Details Date Type Department Care Team Description 06/18/2020 Lab Requisition [facility] Outr Resulting Lab, Pathology & Laboratory Provider [facility] [address] [place], [place] [id number] Social History Tobacco Use Types Packs/Day Years [...] Procedure Name Priority Date/Time Associated Comments Diagnosis DO NOT ORDER Today 06/18/2020 12:59 Results for this STANDALONE - BROAD EST procedure are in COVID TEST the results section. COVID-19 TESTING Routine 06/18/2020 12:59 Results for this EST procedure are i n the results section. documented in this encounter Results DO NOT ORDER STANDALONE - BROAD COVID TEST (06/18/2020 12:59 EST) Analysis Performed At [facility] Time Signature COVID-19 NEGATIVE Negative 06/20/2020 BROAD rt-PCR Result 15:45 EST [facility] Comment: 2019-novel Coronavirus (2019-nCoV) not d etected by the qRT-PCR assay. Consider testing for other respiratory viruses or re-collecting for 2019-nCoV testing. Note: Optimum timing for peak viral levels du ring infections caused by 2019-nCoV have not been determined. Collection of multiple specimens from the same patient may be necessary to detect the virus. Limitations Positive results are indicative of activ e infection with SARS-CoV-2 but do not rule out bacterial infection or co-infection with other viruses. The agent detected may not be the definite cause of diseas e. In addition, detection of viral RNA m ay not indicate the presence of infectious virus or that SARS-CoV-2 is the causative agent for clinical symptoms. Negative results do not preclude SARS-Co V-2 infection and should not be used as the sole basis for patient management decisions. Negative results must be combined with clinical observations, patient his tory, and epidemiological information. F alse negative results may also occur if amplification inhibitors are present in the specimen or if inadequate numbers of organisms are present in the specimen. Op timum specimen types and timing for peak viral levels during infections caused by SARS-CoV-2 have not been fully determined. Collection of multiple specimens (types and time points) from the same patient may be necessary to detect the virus. The test was validated for use with uppe r respiratory specimens obtained via nasopharyngeal or oropharyngeal swabs in VTM, UTM, M4, M5, M6, saline, and MTM media. The performance of this test has not be en established for other specimens. Spec imens collected using other FDA recommended Specimen Collection Materials listed in the FDA COVID-19 Diagnostic Technologies communication (October 02, 2019) are pr ocessed with the caveat that they were n ot all validated for use with this test and the result must be interpreted in this context. Furthermore, a false negative results may occur if a specimen is improperly collected, transported or handled. If the virus mutates in the RT-PCR targe t region, SARS-CoV-2 may not be detected or may be detected less predictably. Inhibitors or other types of interferenc e may produce a false negative result. An interference study evaluating the effect of common cold medications was not performed. This test is not FDA-cleared but its per formance characteristics were established by our CLIA-certified, CAP-accredited, high complexity laboratory in accordance with CLIA regulations, College of [employer] an Pathologists (CAP) guidelines (Sep), and FDA guidance (Sep 06, 2019). This test is only for use under the Food and Drug Administration's Emergency Use Authorization. Specimen Anatomical Location Collection Method Collection Time Received Time (Source) / Laterality / Volume Swab ENTIRE NASOPHARYNX 06/18/2020 12:59 06/18 / Unknown EST 20:59 EST Provider Outr Resulting Lab MICROBIOLOGY - GENERAL ORD ERABLES Performing Organization Address City/State/ZIP Code Phon e Number [facility] [place] COVID-19 TESTING (06/18/2020 12:59 EST) [facility] Time Signature COVID-19 NEGATIVE Negative 06/20/2020 BROAD rt-PCR Result 19:00 EST [facility] Comment: 2019-novel Coronavirus (2019-nCoV) not d etected by the qRT-PCR assay. Consider testing for other respiratory viruses or re-collecting for 2019-nCoV testing. Note: Optimum timing for peak viral levels du ring infections caused by 2019-nCoV have not been determined. Collection of multiple specimens from the same patient may be necessary to detect the virus. Limitations Positive results are indicative of activ e infection with SARS-CoV-2 but do not rule out bacterial infection or co-infection with other viruses. The agent detected may not be the definite cause of diseas e. In addition, detection of viral RNA m ay not indicate the presence of infectious virus or that SARS-CoV-2 is the causative agent for clinical symptoms. Negative results do not preclude SARS-Co V-2 infection and should not be used as the sole basis for patient management decisions. Negative results must be combined with clinical observations, patient his tory, and epidemiological information. F alse negative results may also occur if amplification inhibitors are present in the specimen or if inadequate numbers of organisms are present in the specimen. Op timum specimen types and timing for peak viral levels during infections caused by SARS-CoV-2 have not been fully determined. Collection of multiple specimens (types and time points) from the same patient may be necessary to detect the virus. The test was validated for use with uppe r respiratory specimens obtained via nasopharyngeal or oropharyngeal swabs in VTM, UTM, M4, M5, M6, saline, and MTM media. The performance of this test has not be en established for other specimens. Spec imens collected using other FDA recommended Specimen Collection Materials listed in the FDA COVID-19 [employer] communication (October 02, 2019) are pr ocessed with the caveat that they were n ot all validated for use with this test and the result must be interpreted in this context. Furthermore, a false negative results may occur if a specimen is improperly collected, transported or handled. If the virus mutates in the RT-PCR targe t region, SARS-CoV-2 may not be detected or may be detected less predictably. Inhibitors or other types of interferenc e may produce a false negative result. An interference study evaluating the effect of common cold medications was not performed. This test is not FDA-cleared but its per formance characteristics were established by our CLIA-certified, CAP-accredited, high complexity laboratory in accordance with CLIA regulations, College of [employer] an Pathologists (CAP) guidelines (Sep), and FDA guidance (Sep 06, 2019). This test is only for use under the Food and Drug Administration's Emergency Use Authorization. Performing Lab [facility] 06/20/2020 19:0 0 EST [facility] Specimen Anatomical Collection Method Collection Time Receive d Time (Source) Location / / Volume Laterality Swab 06/18/2020 12:59 06/18/2020 EST 20:59 EST Provider Outr Resulting Lab MICROBIOLOGY - GENERAL ORD ERABLES Performing Organization Address City/State/ZIP Code Phon e Number [facility] [address] [place] [address] SERVICES [facility] [place], [place] documented in this encounter Visit Diagnoses Not on filedocumented in this encounter Care Teams Vaccine Manager Relationship Specialty Start Date End Date Nico Conley MD PCP - General 06/29/11 [address] [place] [address] documented as of this encounter
--- OUTSIDE RECORDS SUMMARY | 2022-05-26 01:43 | XMS_ITS | Encounter Summary ---
:1970 Author Organization [facility] [place] [address] Care Team Providers Name Role Phone Nico Conley MD Primary Care Provider Encounter Details Date Type Department Care Team Description 01/05/2021 Hospital [place] [phone] Social History Tobacco Use Types Packs/Day Years Used Date Smoking Tobacco: Smoker, Current Status Unknown Smokeless Tobacco: Never Snuff Sex Assigned at Date Recorded Not on file documented as of this encounter Medications at Time of Discharge Medication Sig Dispensed Refills Start Date End Date omeprazole (PriLOSEC) 20 Take 20 mg by mouth 0 mg Capsule, Delayed daily. Release(E.C.) LORazepam (Ativan) 1 mg Take 1 mg by mouth 0 10/2020 Tablet daily. documented as of this encounter Progress Notes Juliana Lafleur MD - 01/05/2021 11:59 PM EDT Can you please relay benign results to the patient. A dermatofibroma needs no further treatment. Negar Dutta LPN - 01/05/2021 11:59 PM EDT Spoke with patient today regarding her pathology results. Per Dr. Lafleur it showed a benign DF and no further treatment is needed. Explained to patient what a DF is. She understands. documented in this encounter Plan of Treatment Not on filedocumented as of this encounter Procedures Procedure Name Priority Date/Time Associated Diagnosis Comme nts SURGICAL PATHOLOGY Routine 01/05/2021 2:12 PM Res ults for this REPORT EDT procedure are i n the results section. documented in this encounter Results Surgical Pathology Report (01/05/2021 2:12 PM EDT) Component Value Ref Test Analysis Performed At [facility] Method Time Signature Surgical [id number] ? Location: [facility] Report The signing pathologist has (i) examined the relevant preparation(s) for the [facility] specimen(s) and (ii) rendered or confirmed the diagnosis(es) . [facility] . ?Surgic al Pathology DIAGNOSIS Left ventura, skin biopsy: - Surface of dermatofibroma, hemosiderotic/aneurysmal type, ?transected at specimen base Electronically signed by: ?Dina MATHIAS, Jim Fletcher Verified: ??01/12/2021 13:55 ??Dermatopathologist Performed at: ??-[facility] [place], [place], [place] SPECIMEN(S) SUBMITTED A - left ventura, biopsy (1) CLINICAL INFORMATION 1.0 x 0.8 cm violaceous firm nodule rule out dermatofibroma vs other SPECIMEN PROCESSING A - Labeled/Fixative: Patient demographics, formalin. Quantity/Size: ??Single, 0.8 x 0.7 x 0.2 cm. Tissue Description: Rubbery, clark-nuñez papule. Sections/Processing: Inked, trisected and entirely submitted in 1 cassette labele d A1. ??pps Specimen (Source) Anatomical Collection Method Collection Time Re ceived Time Location / / Volume Laterality 01/05/2021 2:12 PM EDT Juliana Lafleur MD PATHOLOGY/CYTOLOGY ORDERABLE S Performing Organization Address City/State/Z[place] [address] documented in this encounter Visit Diagnoses Not on filedocumented in this encounter Care Teams Production Line Worker Relationship Specialty Start Date End Date Nico Conley MD PCP - General Family Medicine 10/31/[address] [place] [address] documented as of this encounter
[2022-05-26 13:07] LABS: Cholesterol 306 mg/dL (<200); HDL Cholesterol 45 mg/dL (40-60); TSH 1.65 uIU/mL (0.36-3.74); Triglyceride 455 mg/dL (<150)
[2022-05-26 13:10] LABS: Hemoglobin A1C 5.5 % (<5.7)
[2022-05-26 13:19] LABS: LDL CHOLESTEROL 164 mg/dL (<100)
== END 2022-05-26 01:37 | disposition home or self-care (01) ==
LOC: LOS 01:36
PROVIDERS: PCP Nurse Practitioner Family; Visit Provider Nurse Practitioner Family
DX: Z13.29 Encounter for screening for other suspected endocrine disorder (principal); Z13.220 Encounter for screening for lipoid disorders; Z13.1 Encounter for screening for diabetes mellitus
CPT/HCPCS: 36415; 80061; 83721; 83036; 84443

== ENCOUNTER 2022-08-02 01:01 | Outpatient (CLI) | payer MEDICAID, SELFPAY ==
--- NOTE | 2022-08-02 | DI.US_ITS ---
Exam(s) US ABDOMEN EXAM: US ABDOMEN CLINICAL HISTORY: BILIARY COLIC, K80.50, CALCULUS OF BILE DUCT, RUQ PAIN TECHNIQUE: Ultrasound abdomen performed using standard protocol. COMPARISON: CT CT CHEST/ABD W from 10/21/2021 FINDINGS: LIVER: Normal size and echogenicity. No focal liver lesions are seen.. GALLBLADDER: No evidence of cholelithiasis. No evidence of wall thickening. No pericholecystic fluid identified. NESBITT'S SIGN: Negative. BILIARY SYSTEM: No intrahepatic or extrahepatic biliary ductal dilation. KIDNEYS: Kidneys are symmetric in size. No evidence of renal calculi. No evidence of hydronephrosis. No renal mass or cyst identified. PANCREAS: Normal where visualized. SPLEEN: Not enlarged. ABDOMINAL AORTA AND IVC: Visualized portions normal caliber. ASCITES: None seen. IMPRESSION: Normal sonographic appearance of the upper abdomen. DATA REPOSITORY:
--- NOTE | 2022-08-02 | DI.NM_ITS ---
Exam(s) NM HEPATOBILIARY CCK GRP EXAM: NM HEPATOBILIARY CCK GRP CLINICAL HISTORY: BILIARY COLIC, K80.50, CALCULUS OF BILE DUCT, RUQ PAIN. TECHNIQUE: Injected dose: 5 mCi Tc-99 mebrofenin Initial dynamic images: 60 minutes Post-Gallbladder fillin.5 micrograms CCK IV over 45 minutes. Additional images: 45 minute dynamic during CCK administration. COMPARISON: US US ABDOMEN from 08/02/2022 FINDINGS: Normal hepatic transit time. Prompt excretion into the small bowel. Prompt excretion into the gallbladder. Gallbladder ejection fraction: 57 percent, within the normal range. IMPRESSION: 1. No evidence of acute cholecystitis or acalculous disease. SNM guidelines: Gallbladder visualization should be present by 3 hours. Delayed inkddrz-us-orygv martínez sit beyond 60 min raises the suspicion for partial common bile duct (CBD) obstruction. Gallbladder ejection fraction <35% has a good correlation with acalculous disease (i.e., chronic acal culous cholecystitis, cystic duct syndrome, sphincter of Oddi disease).
[2022-08-02] MEDS: Sincalide 5 MCG VIAL 1.5 MCG IJ (13:22)
== END 2022-08-02 01:21 ==
LOC: DI 01:01
PROVIDERS: PCP Nurse Practitioner Family; Visit Provider Student in an Organized Health Care Education/Training Program
DX: K80.50 Calculus of bile duct without cholangitis or cholecystitis without obstruction (principal); R10.11 Right upper quadrant pain
CPT/HCPCS: 78227; J2805; 76700

== ENCOUNTER 2022-11-08 00:32 | Outpatient (CLI) | payer MEDICAID, SELFPAY ==
--- NOTE | 2022-11-08 09:15 | DI.MAMMO_ITS ---
Exam(s) MAMMO SCREENING EXAM: MAMMO SCREENING CLINICAL HISTORY: screening TECHNIQUE: Bilateral full field digital CC and MLO mammographic images were obtained with 3D tomosyn thesis and utilizing computer aided detection (CAD). COMPARISON: Available for comparison. FINDINGS: Masses/Architectural Distortion: None seen. Microcalcifications: No suspicious pleomorphic-type are seen. Skin Thickening/Nipple Retraction: None. IMPRESSION: 1. No significant interval change with no specific features of malignancy noted. 2. Unless there is more urgent need, screening mammography is recommended, as per [place] guidelines. BI-RADS Category 1 - Negative Breast Density - Category C - Heterogeneously dense Breast density category C or D implies that the patient has dense breast tissue. Dense breast tissue is very common and is not abnormal but dense breast tissue can make it harder to find cancer on a ma mmogram. Also, dense breast tissue may increase their breast cancer risk. This information about the result of the mammogram report was provided to the patient to raise their awareness. Use this report when you speak with the patient about their risks for breast cancer, which includes their family hist ory. At that time, you may recommend for more screening tests (Ultrasound or MRI) as they might be us eful based on their risk. A negative radiographic report should not delay biopsy if a dominant or clinically suspicious mass is present. Up to ten percent of cancers are not identified on mammography. A negative report may reinforce clinical impression. Adenosis and dense breasts may obscure an underlying neoplasm. False positive reports average 6 to 10%. Patient will receive a letter notifying them of these results.
== END 2022-11-08 00:52 ==
LOC: DI 00:32
PROVIDERS: PCP Nurse Practitioner Family; Visit Provider Obstetrics & Gynecology
DX: Z12.31 Encounter for screening mammogram for malignant neoplasm of breast (principal)
CPT/HCPCS: 77063; 77067

== ENCOUNTER 2023-01-18 13:39 | Outpatient (REF) | payer MEDICAID, SELFPAY ==
[2023-01-18 16:07] LABS: Bacteria Many HPF (Negative); C & S Indicated? C&S Done As Ordered; Casts Negative LPF (Negative); Crystals Negative HPF (Negative); Epithelial Cells Few HPF (Negative); Mucus Trace (Negative)
== END 2023-01-18 13:40 | disposition home or self-care (01) ==
LOC: LBN 13:39
PROVIDERS: PCP Nurse Practitioner Family; Visit Provider Physician Assistant Medical
DX: N39.0 Urinary tract infection, site not specified (principal)
CPT/HCPCS: 87077; 81015; 87086; 87186

== ENCOUNTER → 2023-12-21 08:42 | Outpatient (CLI) | payer MEDICAID, SELFPAY ==
--- NOTE | 2023-12-18 10:15 | DI.MRI_ITS ---
Exam(s) MR THORACIC SPINE WO EXAM: MR THORACIC SPINE WO CLINICAL HISTORY: acute severe back pain, ? disc herniation M54.6 PAIN IN T SPINE. TECHNIQUE: Multiplanar multisequence MRI of the Thoracic spine was performed. COMPARISON: No exams were available for comparison FINDINGS: Bones: The vertebral body heights are well maintained. Alignment is satisfactory. Degenerative endpla te signal changes are seen at several of the levels in the mid and lower thoracic spine. Cord: The thoracic cord is normal size and signal intensity. No intrinsic cord lesion is present. Discs: Small diffuse disc bulges are seen at T4-5 through T7-T8. However, no significant central spin al canal or neural foraminal stenosis is seen in the thoracic spine. Soft tissues: There is a 9 mm simple cyst in the right kidney. No follow-up is recommended. IMPRESSION: Degenerative changes and small diffuse disc bulges are seen in the thoracic spine as described above. No significant central spinal canal or neural foraminal stenosis is seen. DATA REPOSITORY:
== END ==
PROVIDERS: PCP Nurse Practitioner Family; Visit Provider Nurse Practitioner Family
DX: M54.6 Pain in thoracic spine (principal); M51.34 Other intervertebral disc degeneration, thoracic region
CPT/HCPCS: 72146

== ENCOUNTER 2024-10-06 11:14 | Outpatient (CLI) | payer MEDICAID, SELFPAY ==
[2024-10-06 13:17] LABS: Calculated LDL 139 mg/dL (<100); Cholesterol 227 mg/dL (<200); HDL Cholesterol 46 mg/dL (>or=50); Triglyceride 213 mg/dL (<150)
[2024-10-06 13:21] LABS: Hemoglobin A1C 5.4 % (<5.7)
== END 2024-10-06 11:15 | disposition home or self-care (01) ==
LOC: LOS 11:14
PROVIDERS: PCP Nurse Practitioner Family; Referring Provider Nurse Practitioner Family; Visit Provider Nurse Practitioner Family
DX: Z13.220 Encounter for screening for lipoid disorders (principal); Z13.1 Encounter for screening for diabetes mellitus; F41.9 Anxiety disorder, unspecified; E78.2 Mixed hyperlipidemia; M53.9 Dorsopathy, unspecified
CPT/HCPCS: 36415; 80061; 83036

== ENCOUNTER 2024-11-14 07:35 | Day surgery (SDC) | payer MEDICAID, SELFPAY ==
[2024-11-12 09:05] VITALS: BP 102/77; PULSE 97; RESP 16; TEMP 36.7; O2SAT 95
--- NOTE | 2024-11-13 16:58 | W.PM.DSUDISC ---
Date of service: 11/14/24 Discharge Plan Disposition Patient Disposition: Home Condition: Good Discharge Details Reason For Visit: Screening colonoscopy Attending Provider: Denis Cantu Primary Care Provider: Manuel Lombardo Home Meds and New Rx's Prescriptions: Continued atorvastatin 20 mg tablet 20 mg PO QHS Qty: 90 3RF omeprazole 40 mg capsule,delayed release(DR/EC) 20 mg PO DAILY Qty: 90 3RF oxycodone 5 mg tablet 5 mg PO DAILY MDD 5 mg PRN (Reason: pain) Qty: 28 0RF lorazepam 1 mg tablet 1 mg PO BID Qty: 56 2RF Discontinued bisacodyl [Dulcolax (bisacodyl)] 5 mg tablet,delayed release (DR/EC) 5 mg PO ONCE Qty: 4 0RF Rx Instructions: Take per colonoscopy instructions provided by ordering providers office polyethylene glycol 3350 17 gram/dose powder 17 g PO ONCE Qty: 238 0RF Rx Instructions: Take per colonoscopy instructions provided by ordering providers office Discharge Instructions Instructions: Colon polyps Additional Instructions: Christian, it was very nice meeting you today, and I hope you feel well after the procedure. Things went very smoothly. I did find, and removed, 1 tiny bit of tissue in the rectum. I suspect it may be a polyp, but when there is a small, can actually be a little difficult to decipher. Regardless, I will send this off to the pathologist for the review. Those results will take about a week or 2 to get back, but once my office has those, we will be in touch with recommendations for future colonoscopies. If you need anything or have any questions, please do not hesitate to ask. 1. If tolerated, consume a soft, low fiber diet for 1-2 days. 2[address] Do not drive, drink alcohol, operate machinery, make critical decisions, or do activities that require coordination or balance for 24 hours. 3. Because air was put into your colon during the procedure, expelling air from your rectum (passing gas or farting) is normal. 4. You may not have a bowel movement for 1-3 days because of the colonoscopy prep. This is normal. 5. Go directly to the emergency room if you notice any of the following: Develop chills (warm to touch), or if you have a thermometer and your temperature is above 101 Difficulty breathing or difficultly swallowing Persistent vomiting Severe abdominal pain, other than gas cramps Severe chest pain Black, tarry stools Any bleeding ? exceeding one tablespoon 6. Call your physician if the site where your intravenous was started becomes red, swollen, painful, and warm to touch. 7. Your physician has reviewed your pre-procedure medications. Please continue to take those medications as previously ordered. You will be given specific information/education regarding any changes to your medications before leaving. Activity:: Activity as Tolerated Diet:: As Tolerated Discharge Orders Discharge Orders: Discharge Order (Routine); Ordered 11/13/24 Ordered By: Denis Cantu DS: Diagnosis Discharge Diagnosis (1) Encounter for screening colonoscopy: Status: Acute Asessment and Plan: Follow-up on polypectomy result
--- NOTE | 2024-11-13 16:59 | COLE_ITS ---
Date of service: 11/14/24 Time of Service: 09:59 Colonoscopy Report Date of procedure: 11/14/24 Pre-op diagnosis general: Screening colonoscopy Post-op diagnosis procedure note: other (Colon polyp) Procedure: Colonoscopy with polypectomy Surgeon: Denis Cantu Anesthesia Type: General:No Airway Estimated blood loss (mL): 5 Pathology: other (Less than 0.25 cm flat rectal polyp) Complications: None Disposition: same day Indications: She felt a 54-year-old woman with a history of rectal tubulovillous adenoma who needs her next screening colonoscopy Prep: Miralax/Dulcolax Procedure Start Time: :28 Procedure End Time: :50 Retraction Time: 17 Findings: Less than 0.25 cm flat rectal polyp Procedure Description: After the induction of anesthesia, and with the patient in left lateral decubitus position, I began by performing an external anorectal exam.? Perineum and skin were normal, as was the anal verge.? This was normal.? Next, I performed a digital rectal exam.? I did not appreciate any abnormal findings.? Next, I advanced a colonoscope into the rectal vault.? I performed retroflexion.? This appeared normal.? Using insufflation, I then advanced the colonoscope beyond the rectal folds and into the sigmoid colon before advancing towards the cecum.? The scope was noted to be in the cecum by identification of the ileocecal valve and appendiceal orifice.? I then began withdrawing the colonoscope using repeated irrigation as necessary for full evaluation of the colonic mucosa. ?Once the scope was withdrawn to the level of the rectum, great care was taken to examine portions of the rectal folds.? In the upper portion of the rectal vault was a 0.25 cm flat bit of tissue, that did appear consistent with a polyp. Narrowband imaging was used to assist with the analysis. Some of the features seemed consistent with a hyperplastic polyp, but given the history of villous adenoma, I did perform cold forcep polypectomy to be safe. There was minimal bleeding. Finally, the scope was withdrawn and the patient was brought to the same-day surgery recovery unit as the anesthetic wore off. ?The findings and instructions were shared with the patient prior to discharge. [place] Bowel Prep [place] Bowel Prep Right Colon: 3 Left Colon: 2 Transverse Colon: 3 Total Score: 8
[2024-11-14] MEDS: Lactated Ringers 1,000 ML 80 ML IV (08:50)
--- NOTE | 2024-11-14 08:51 | ANES.PREOP_ITS ---
General Info Date of Service Date Performed: 11/14/24 Height: 5 ft 7.5 in Weight: 73.1 kg Body Mass Index (BMI): 24.8 Surgical Procedure: Operation Date: 11/14/24 09:05 Proposed Procedure Side Surgeon edinson Cantu MD Meds Allergies and Home Medications Allergies Allergy/AdvReac Type Severity Reaction Status Date / Time cat dander Allergy unknown Verified 11/14/24 08:03 Home Medication ?Medication ?Instructions ?Recorded omeprazole 40 mg capsule,delayed 20 mg (1/2 x 40 mg) PO DAILY #90 04/24/24 release caps atorvastatin 20 mg tablet 20 mg PO QHS #90 tabs 08/28/24 oxycodone 5 mg tablet 5 mg PO DAILY PRN pain #28 tabs 10/20/24 lorazepam 1 mg tablet 1 mg PO BID #56 tabs 11/03/24 Current Visit Medications: Current Medications Generic Name Dose Route Start Last Admin Trade Name Freq PRN Reason Stop Dose Admin Ringer's Solution 1,000 mls @ 80 mls/hr 11/14/24 06:00 IV 11/14/24 23:59 INFUSION KRAIG IV Miscellaneous Supplies 1 each 11/14/24 06:00 Iv Access IV 11/14/24 23:59 DIRECTED KRAIG Ondansetron HCl 4 mg 11/13/24 17:00 Ondansetron 4 Mg/2 Ml Vial IVP 12/13/24 16:59 Q4H PRN PRN Nausea / Vomiting Sodium Chloride 0 ml 11/14/24 06:00 Normal Saline Flush 10 Ml Syr IV 11/14/24 23:59 PRN PRN Sodium Chloride 0 ml 11/14/24 06:00 Normal Saline 10 Ml Vial IJ 11/14/24 23:59 DIRECTED PRN Sterile Water 0 ml 11/14/24 06:00 Water,Injection,Sterile 10 Ml Vial IJ 11/14/24 23:59 DIRECTED PRN PFSH Active Problems Active Problems: Problem Status Onset Code Encounter for screening colonoscopy Acute Z12.11 Neck pain Acute M54.2 Thoracic back pain Acute M54.6 De Quervain's tenosynovitis Acute M65.4 Acute depression Acute F32.A Menopausal and female climacteric states Acute N95.1 Pain of both thumbs Acute M79.644, M79.645 Hyperlipidemia Acute E78.5 Hiatal hernia with GERD Acute K21.9, K44.9 Chronic GERD Acute K21.9 Anxiety Chronic F41.9 Carpal tunnel syndrome Chronic G56.00 Disorder characterized by back pain Chronic M53.9 Smoker Chronic F17.200 Medical History Medical History COVID-19 08/2021 Tubulovillous adenoma Sessile colonic polyp Adenomatous colon polyp Encounter for IUD removal Uterine leiomyoma Breast lump on right side at 3 o'clock position Breast lump on left side at 12 o'clock position Lymphadenopathy right inguinal Toxoplasmosis H/O; + titer 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 SVT 2009 Past history hyperlipidemia Past history anemia Dysmenorrhea ongoing since 2003 Surgical History Surgical History History of esophagogastroduodenoscopy (EGD) (~10/21/21) History of colonoscopy with polypectomy (~12/24/20) tubulovillous, repeat 3 years, [place] History of tonsillectomy Status post laparoscopic assisted vaginal hysterectomy Jun 2020 for fibroid uterus H/O cardiac radiofrequency ablation 2014 for svt Ligation of fallopian tube Open Carpal Tunnel release RIGHT Recurrent major depression in partial remission Cardiac for SVT 2009 [facility] Tobacco Smoking/Tobacco Use Status: Current every day Tobacco Type: cigarettes Second hand exposure: Yes Alcohol Alcohol Intake: current Alcohol intake frequency: a few times a month Alcohol type: beer Substance Use Substance use: Daily Substance use type: marijuana Prental History History 4 Para 3 Hx # Term Pregnancies Multiple births Hx # Pregnancies Ectopic pregnancies AB induced Hx Number of Living Children AB spontaneous Past Pregnancies Del. Date GA/Weeks # Preg Succ Route Wgt Sex Labor Lgth Anesth esia Location Prov Complic 01/09/92 38 Yes vaginal 2721.554 g Male [facility] 06/30/02 40 Yes vaginal 3288.545 g Male [facility] 02/04/04 42 Yes vaginal 2948.35 g Male [facility] Vital Signs and Lab Results Vital Signs Most Recent Vital Signs in EMR: Most Recent Vital Signs Temp Pulse Resp BP Pulse Ox 36.5 C 61 17 122/79 97 11/14/24 08:47 11/14/24 08:47 11/14/24 08:47 11/14/24 08:47 11/14/24 08:47 Lab Results Blood Type / Crossmatch: No Data to Display Complete Blood Count: No Data to Display Complete Metabolic Panel: No Data to Display Liver Function Panel: No Data to Display Coagulation Panel: No Data to Display Cardiac Panel: No Data to Display Arterial Blood Gas: No Data to Display Venous Blood Gas: No Data to Display Pancreas Panel: No Data to Display Thyroid Panel: No Data to Display Infectious Disease: No Data to Display Blood Cultures: No Data to Display Toxicology Panel: No Data to Display Anesthesia Assessment and Plan Anesthesia History Personal History: No History of Anesthesia Complications Family History: No Family History of Anesthesia Complications and Other Exercise Tolerance Exercise Tolerance: Metabolic Equivalents>4 Pertinent Negatives Pertinent Negatives: No Major Cardiovascular Symptoms or Complaints and No Major Pulmonary Symptoms or Complaints Cardiac & Pulmonary Exam Cardiac Exam: Normal S1/S2 Heart Sounds Pulmonary Exam: Clear Bilateral Breath Sounds Implantable Cardiac Device Does patient have a Pacemaker or an ICD?: No Airway Exam Known Difficult Airway: No Mallampati Class: 2 Mouth Opening: Normal (> 3cm) Thyromental Distance: Greater than 3 cm Neck Range of Motion: Full ROM Neck Circumference: Normal Teeth Condition: Normal Dentition and Other (Missing teeth left/right upper) ASA Classification ASA Score: ASA 2 Emergency Case?: No NPO Status NPO Status: NPO Clears >2 hours, Solids >8 hours Anesthesia Plan Resuscitation Status: Full Code Anesthesia Technique: General Anesthesia Airway Planned: Natural Airway Monitors Used: Standard Monitors Preoperative Comments:: Did not take omeprazole this morning, but reports no current symptoms. Offered medication, but declines currently.
[2024-11-14 08:54] VITALS: BMI 24.8
--- NOTE | 2024-11-14 09:49 | BOWEL_PTH ---
PATIENT: Christian Gordon LOC: [facility] U#:[id number] AGE/SX: 54/F ROOM: RE11/14/[address]: Denis Cantu MD : 1970 BED: DIS: 11/14/2024 SPEC #: [id number] RECD: 11/14/24 12:23 STATUS: TIMOTHY RE #: [id number] DARIUS: 11/14/24 09:[address]: Denis Cantu DEPT: Surgical Specimen RECD BY: Negar Fitch ENTERED: 11/14/24 12:24 SP TYPE: Bowel OTHR DR: Manuel Lombardo, MIKAEL Tissues: 1 - BIOPSY BOWEL Procedures: GROSS AND MICRO LEVEL 4 Comments: [id number]
[2024-11-14 09:59] VITALS: BP 100/75; PULSE 79; RESP 18; TEMP 36.4; O2SAT 95
--- NOTE | 2024-11-14 10:04 | W.ANESPOSTOP ---
Postoperative Evaluation Date, Time and Location Date Performed: 11/14/24 Time Performed: 10:04 Patient Location: Day Surgery Unit Vital Signs Most Recent Imported Vital Signs: Most Recent Vital Signs Temp Pulse Resp BP Pulse Ox 36.4 C L 79 18 100/75 95 11/14/24 09:59 11/14/24 09:59 11/14/24 09:59 11/14/24 09:59 11/14/24 09:59 Pain Score Most Recent Pain Score: Most Recent Pain Score Pain Level 0 11/12/24 09:05 Assessment Mental Status: Awake (Alert & Oriented to Patient Baseline) Airway and Respiratory Function: Patent airway with normal (patient baseline) respiratory exam Cardiovascular Function: Hemodynamically Stable Hydration Status: Adequately Hydrated Nausea & Vomiting: No Nausea or Vomiting Pain: Pt. Denies Any Pain Peripheral Nerve Block: Patient did not receive a nerve block
[2024-11-14 10:22] VITALS: BP 117/78; PULSE 85; RESP 20; TEMP 36.3; O2SAT 96
== END 2024-11-14 10:37 | disposition home or self-care (01) ==
LOC: SUR 07:35
PROVIDERS: PCP Nurse Practitioner Family; Visit Provider Surgery
PROC: 0DJD8ZZ Inspection of Lower Intestinal Tract, Via Natural or Artificial Opening Endoscopic (ICD-10-PCS; CPT 45378; principal; 2024-11-14 09:00)
DX: Z12.11 Encounter for screening for malignant neoplasm of colon (principal); K63.5 Polyp of colon
CPT/HCPCS: 45380; 88305; J2003; J2704

== ENCOUNTER → 2025-05-13 02:13 | Outpatient (CLI) | payer MEDICAID, SELFPAY ==
--- NOTE | 2025-05-13 07:30 | DI.MRI_ITS ---
Exam(s) MR CERVICAL SPINE WO EXAM: MR CERVICAL SPINE WO CLINICAL HISTORY: Worsening cervical neck pain, m54.2 TECHNIQUE: Multiplanar multisequence MRI of the cervical spine was performed without intravenous contrast. COMPARISON: No exams were available for comparison FINDINGS: BONES: Vertebral body heights are maintained. Intervertebral disc spaces are normal. Alignment is normal. Degenerative endplate signal changes are present particularly at C5-C6 and C6-C7. CERVICAL CORD: Craniovertebral junction is unremarkable. The cervical cord is normal size and signal intensity. SOFT TISSUES: Unremarkable. C2-3: No disc herniation or bulge is identified. No significant central spinal canal or neural foraminal stenosis. C3-4: No disc herniation or bulge is identified. There are mild degenerative changes of the left uncovertebral joint causing mild narrowing of the left neural foramen. There is no significant central spinal canal or right neural foraminal stenosis. C4-5: No disc herniation or bulge is identified. No significant central spinal canal or neural foraminal stenosis. C5-6: No disc herniation or bulge is identified. There are degenerative changes seen in the right uncovertebral joint causing mild right neural foraminal stenosis. There is no significant central spinal canal or neural foraminal stenosis on the left. C6-7: There is mild prominence of the osteophyte disc complex. Mild hypertrophic changes are seen at the left uncovertebral joint. There is mild narrowing of the left neural foramen. There is no significant central spinal canal stenosis. No significant central spinal canal or neural foraminal steno sis. C7-T1: No disc herniation or bulge is identified. No significant central spinal canal or neural foraminal stenosis. IMPRESSION: Multilevel degenerative changes in the lumbar spine resulting in neural foraminal narrowing at C3-4, C5-6 and C6-C7 as described above. DATA REPOSITORY:
== END ==
LOC: DI 02:13
PROVIDERS: PCP Nurse Practitioner Family; Visit Provider Nurse Practitioner Family
DX: M54.2 Cervicalgia (principal); M51.369 Other intervertebral disc degeneration, lumbar region without mention of lumbar back pain or lower extremity pain
CPT/HCPCS: 72141